=== PATIENT | female | born 1955 | race Caucasian/White ===

== ENCOUNTER 2018-06-17 17:46 | Inpatient (IN) | payer MEDICAID, SELFPAY | END 2018-06-28 13:10 | DRG 710 | PROVIDERS: Admitting Provider Family Medicine; Emergency Provider Emergency Medicine; PCP Internal Medicine; Visit Provider Internal Medicine | DX: A41.01 Sepsis due to Methicillin susceptible Staphylococcus aureus (principal); R65.21 Severe sepsis with septic shock; J96.01 Acute respiratory failure with hypoxia; I11.0 Hypertensive heart disease with heart failure; L03.115 Cellulitis of right lower limb; M86.171 Other acute osteomyelitis, right ankle and foot; Z68.44 Body mass index [BMI] 60.0-69.9, adult; I50.42 Chronic combined systolic (congestive) and diastolic (congestive) heart failure; E11.69 Type 2 diabetes mellitus with other specified complication; E11.621 Type 2 diabetes mellitus with foot ulcer; E11.628 Type 2 diabetes mellitus with other skin complications; L03.116 Cellulitis of left lower limb; L97.302 Non-pressure chronic ulcer of unspecified ankle with fat layer exposed; I83.003 Varicose veins of unspecified lower extremity with ulcer of ankle; L97.519 Non-pressure chronic ulcer of other part of right foot with unspecified severity; E66.01 Morbid (severe) obesity due to excess calories; I48.91 Unspecified atrial fibrillation; S92.0 Fracture of calcaneus; X50.0XXA Overexertion from strenuous movement or load, initial encounter; G47.30 Sleep apnea, unspecified; D64.9 Anemia, unspecified; M19.90 Unspecified osteoarthritis, unspecified site; F32.9 Major depressive disorder, single episode, unspecified; Z87.891 Personal history of nicotine dependence; B96.4 Proteus (mirabilis) (morganii) as the cause of diseases classified elsewhere | CPT/HCPCS: 36415; 36569; 36600; 51702; 71046; 73590; 73620; 73630; 80048; 80053; 80202; 81001; 82247; 82565; 82805; 83036; 83605; 83880; 84443; 84484; 85025; 85027; 85610; 85730; 86141; 86850; 86900; 86901; 87040; 87070; 87075; 87076; 87081; 87147; 87186; 87205; 93005; 93923; 94003; 94640; 94667; 96365; 96366; 96368; 97110; 97116; 97161; 97166; 97530; 97535; 99291; A9270; C1751; C8929; J0696; J0743; J1100; J1160; J1170; J1650; J1815; J1940; J2250; J2270; J2405; J2704; J2997; J3010; J3370; J7030; J7060; Q9957 ==

== ENCOUNTER 2019-07-21 13:16 | Outpatient (RCR) | payer BC, SELFPAY ==
[2019-07-21 14:03] VITALS: BMI 52.7
== END 2019-10-07 10:59 | disposition home health service (06) ==
LOC: ANHWOC 13:16
PROVIDERS: PCP Internal Medicine; Visit Provider Nurse Practitioner
DX: L97.522 Non-pressure chronic ulcer of other part of left foot with fat layer exposed (principal)
CPT/HCPCS: 99213; A9270; G0463

== ENCOUNTER 2019-11-26 14:29 | Inpatient (IN) | payer BC, SELFPAY ==
[2019-11-26] VITALS (24 sets, daily range): BP systolic 78–133; BP diastolic 40–90; PULSE 85–140; RESP 12–38; TEMP 36–36.8; O2SAT 93–100; BMI 65.0
--- NOTE | ~2019-11-26 | XR_ITS ---
XR chest 1V portable DATE: 12/06/2019 06:15 INDICATION: Acute respiratory failure, pulmonary edema TECHNIQUE: Portable AP chest on 12/06/2019 at 0551 hours COMPARISON: 12/05/2019 portable AP chest at 0537 hours FINDINGS: ET tube is approximately 6 cm above reny; ideal range is 2-5 cm. A nasogastric tube is pr esent at least to the lower margin of the radiograph the distal esophagus but the distal portion is c ollimated off the exam. Left-sided line a central venous catheter; the tip is not well demonstrated, and may overlie the left brachiocephalic vein. Cardiomegaly. There is prominent pulmonary vascular congestion and redistribution. There are bilatera l relatively central and lower lung zone infiltrates, the distribution favoring pulmonary edema. Pneu monia and aspiration are not excluded. Diffuse osteopenia. Aortic calcification. IMPRESSION: Cardiomegaly, prominent congestive heart failure and probable pulmonary edema, without an y significant improvement since 12/05/2019 Reviewed, dictated and finalized at location A. IMPRESSION: Cardiomegaly, prominent congestive heart failure and probable pulmo nary edema, without any significant improvement since 12/05/2019
--- NOTE | ~2019-11-26 | XR_ITS ---
EXAMINATION: XR chest 1V portable DATE: 11/28/2019 06:05 INDICATION: Respiratory failure TECHNIQUE: frontal view of the chest was obtained. COMPARISON: Chest radiograph dated 11/26/2019 FINDINGS: Endotracheal tube tip 6.0 cm above the reny. Nasogastric tube extends below the left hemidiaphragm with distal tip collimated off the study. Left subclavian central venous port catheter with distal t ip at the left brachiocephalic vein. Patchy and bandlike airspace opacities in the bilateral mid and lower lung zone superimposed over a g radient of the lower lung predominant hazy airspace opacities bladder consistent with small bilateral pleural effusions. No pneumothorax. Cardiomegaly. Enlargement of the central pulmonary arteries whic h can be seen with pulmonary arterial hypertension. IMPRESSION: 1. Endotracheal tube tip 6.0 cm above the reny. Consider advancement by 3-4 cm. 2. Patchy and bandlike opacities in the bilateral mid and lower lung zones consistent with atelectasi s and possibly also pneumonia or pulmonary edema. 3. Small bilateral pleural effusions. 4. Cardiomegaly with enlargement of the central pulmonary arteries which can be seen with pulmonary a rterial hypertension. Reviewed, dictated and finalized at location A. IMPRESSION: 1. Endotracheal tube tip 6.0 cm above the reny. Consider advancement by 3-4 c m. 2. Patchy and bandlike opacities in the bilateral mid and lower lung zones cons istent with atelectasis and possibly also pneumonia or pulmonary edema. 3. Small bilateral pleural effusions. 4. Cardiomegaly with enlargement of the central pulmonary arteries which can be seen with pulmonary arterial hypertension.
--- NOTE | ~2019-11-26 | XR_ITS ---
EXAMINATION: XR foot LT min 3V DATE: 11/27/2019 06:16 INDICATION: Left foot wound TECHNIQUE: Dorsoplantar, two oblique and lateral views of the left foot were obtained. COMPARISON: None. FINDINGS: Bone alignment is normal. No fracture. Mild polyarticular osteoarthritis at multiple joints in the mi d and forefoot. Small juxta articular cortical erosion with corticated margins at the medial head of the first metatarsal with classic location and appearance for gout. No other evident erosions or oste olysis suspicious for osteomyelitis. Achilles and plantar calcaneal spurs. There is bandaging materia l overlying ulceration and/or region of soft tissue debridement at the medial aspect of the left hind foot. Dystrophic calcification along the medial aspect of the distal lower leg. There is benign-appea ring periosteal reaction along the medial side of the distal tibial metadiaphysis. Both the periostea l reaction and dystrophic ossification can be seen in the setting of chronic venous stasis. IMPRESSION: 1. Deep ulceration and/or soft tissue debridement at the medial aspect of the left hindfoot without e vident underlying osteomyelitis or other acute osseous abnormality. 2. Chronic appearing erosion at the medial head of the first metatarsal with classic location and emmie earance for gout. 3. Mild polyarticular osteoarthritis in the mid and forefoot. 4. Benign-appearing periosteal reaction along the medial side of the distal tibia with overlying dyst rophic soft tissue calcifications which can be seen in the setting of chronic venous stasis. Reviewed, dictated and finalized at location A. IMPRESSION: 1. Deep ulceration and/or soft tissue debridement at the medial aspect of the l eft hindfoot without evident underlying osteomyelitis or other acute osseous ab normality. 2. Chronic appearing erosion at the medial head of the first metatarsal with cl assic location and appearance for gout. 3. Mild polyarticular osteoarthritis in the mid and forefoot. 4. Benign-appearing periosteal reaction along the medial side of the distal tib ia with overlying dystrophic soft tissue calcifications which can be seen in th e setting of chronic venous stasis.
--- NOTE | ~2019-11-26 | XR_ITS ---
XR chest 1V portable DATE: 11/26/2019 16:20 INDICATION: Dyspnea TECHNIQUE: Portable AP chest on 11/26/2019 at 1612 hours COMPARISON: 11/28/2018 AP and lateral chest FINDINGS: There is cardiomegaly. There is pulmonary vascular congestion and redistribution. There are bilateral central and lower lung zone infiltrates. The distribution favors pulmonary edema but pneum onia and aspiration are additional considerations. The infiltrates are increased compared to 9. Right pleural effusion is suggested. No pneumothorax. Severe osteoarthritic change is evident at the right glenohumeral joint. There is diffuse osteopenia. IMPRESSION: Cardiomegaly, congestive heart failure, bilateral infiltrates suggestive of pulmonary crow ma., Probable pleural effusion on the right Cannot exclude pneumonia or aspiration. Reviewed, dictated and finalized at location A. IMPRESSION: Cardiomegaly, congestive heart failure, bilateral infiltrates sugge stive of pulmonary edema., Probable pleural effusion on the right Cannot exclude pneumonia or aspiration.
--- NOTE | ~2019-11-26 | XR_ITS ---
EXAMINATION: XR chest 1V portable INDICATION: Respiratory failure TECHNIQUE: Portable AP chest at 0523 hours COMPARISON: 11/28/2019 FINDINGS: The endotracheal tube ends approximately 5.1 cm above the reny. The nasogastric tube is f ollowed as far as the stomach. Its tip is beyond the inferior margin of the radiograph. A left subcla vian catheter ends in the brachiocephalic vein. There is stable cardiomegaly. Small pleural effusions are unchanged. Bibasilar airspace opacities are stable. There are decreased airspace opacities in th e midlung zones. No pneumothorax is identified. IMPRESSION: 1. Stable cardiomegaly. 2. Small pleural effusions, unchanged. 3. Airspace opacities of the mid and lower lung zones, with improvement in the mid lung zones, consis tent with atelectasis versus pneumonia. Reviewed, dictated and finalized at location A. IMPRESSION: 1. Stable cardiomegaly. 2. Small pleural effusions, unchanged. 3. Airspace opacities of the mid and lower lung zones, with improvement in the mid lung zones, consistent with atelectasis versus pneumonia.
--- NOTE | ~2019-11-26 | XR_ITS ---
EXAMINATION: XR chest 1V portable DATE: 12/05/2019 06:14 INDICATION: Acute respiratory failure. Pulmonary edema. TECHNIQUE: A single frontal view of the chest was obtained. COMPARISON: Chest single view 12/04/2019 FINDINGS: There are airspace opacities in the perihilar regions and at the lung bases. There are smal l pleural effusions. No pneumothorax. Cardiomegaly is noted. The endotracheal tube tip is 6.7 cm abov e the reny. The nasogastric tube tip is beyond the inferior margin of the radiograph, but at least to the stomach. A left subclavian central venous catheter is seen with tip in the left brachiocephali c vein. IMPRESSION: 1. Stable airspace opacities in the perihilar regions and at the lung bases, consistent with atelecta sis versus pulmonary edema versus pneumonia. 2. Stable small pleural effusions. 3. Cardiomegaly. Reviewed, dictated and finalized at location A. IMPRESSION: 1. Stable airspace opacities in the perihilar regions and at the lung bases, co nsistent with atelectasis versus pulmonary edema versus pneumonia. 2. Stable small pleural effusions. 3. Cardiomegaly.
--- NOTE | ~2019-11-26 | US_ITS ---
EXAMINATION:US venous doppler LE BI INDICATION:Elevated d-dimer. TECHNIQUE: Multiple grayscale, color flow and Doppler images of the bilateral lower extremity deep ve nous systems were obtained and reviewed. COMPARISON:11/11/2018 FINDINGS: The common femoral, superficial femoral and popliteal veins demonstrate normal respiratory variation, augmentation and compressibility. Color flow is also seen within the posterior tibial, pe roneal, greater saphenous and profunda veins. There is a right [id number] amputation and the righ t posterior tibial and peroneal veins are not evaluated. IMPRESSION: 1: No lower extremity deep venous thrombosis. Reviewed, dictated and finalized at location B.
--- NOTE | ~2019-11-26 | XR_ITS ---
EXAMINATION: XR chest 1V portable DATE: 12/04/2019 06:07 INDICATION: Acute respiratory failure. Pulmonary edema. TECHNIQUE: A single frontal view of the chest was obtained on 2 radiographs. COMPARISON: Chest single view 12/03/2019 FINDINGS: There are airspace opacities in the perihilar regions and at the lung bases. There are smal l pleural effusions. No pneumothorax. Cardiomegaly is noted. The endotracheal tube tip is 4.7 cm abov e the reny. A left subclavian central venous catheter is seen with tip in the left brachiocephalic vein. The nasogastric tube tip is beyond the inferior margin of the radiograph, but at least to the s tomach. IMPRESSION: 1. Stable airspace opacities in the perihilar regions and at the lung bases, consistent with atelecta sis versus pulmonary edema versus pneumonia. 2. Stable small pleural effusions. 3. Cardiomegaly. Reviewed, dictated and finalized at location A. IMPRESSION: 1. Stable airspace opacities in the perihilar regions and at the lung bases, co nsistent with atelectasis versus pulmonary edema versus pneumonia. 2. Stable small pleural effusions. 3. Cardiomegaly.
--- NOTE | ~2019-11-26 | XR_ITS ---
EXAMINATION: XR chest 1V portable DATE: 12/02/2019 06:20 INDICATION: Respiratory failure. TECHNIQUE: A single frontal view of the chest was obtained. COMPARISON: Chest single view 12/01/2019 FINDINGS: Sensitivity is decreased by obesity. There are airspace opacities in the perihilar regions and at the lung bases. There is a small right pleural effusion. Left lateral costophrenic angle is ex cluded. No pneumothorax. Cardiomegaly is noted. The endotracheal tube tip is 5.0 cm above the erny. The nasogastric tube tip is beyond the inferior margin of the radiograph, but at least to the stomac h. A left subclavian central venous catheter is seen with tip in the left brachiocephalic vein. IMPRESSION: 1. Airspace opacities in the perihilar regions and at the lung bases with improvement on the left, co nsistent with atelectasis versus pneumonia. 2. Stable small right pleural effusion. 3. Cardiomegaly. Reviewed, dictated and finalized at location A. IMPRESSION: 1. Airspace opacities in the perihilar regions and at the lung bases with impro vement on the left, consistent with atelectasis versus pneumonia. 2. Stable small right pleural effusion. 3. Cardiomegaly.
--- NOTE | ~2019-11-26 | XR_ITS ---
EXAMINATION: XR abdomen NG/feed tube insert DATE: 12/03/2019 03:56 INDICATION: Nasogastric tube placement. TECHNIQUE: A semiupright view of the abdomen was obtained. COMPARISON: Abdomen single view 11/27/2019 FINDINGS: The lower abdomen and right lateral aspect of the abdomen are excluded. There are no visibl e dilated loops of bowel. The nasogastric tube tip is in the stomach. IMPRESSION: 1. Nasogastric tube tip in the stomach. Reviewed, dictated and finalized at location A.
--- NOTE | ~2019-11-26 | XR_ITS ---
EXAMINATION: XR chest 1V portable DATE: 12/03/2019 08:50 INDICATION: Congestive heart failure. TECHNIQUE: A single frontal view of the chest was obtained on 2 radiographs. COMPARISON: Chest single view 12/02/2019 FINDINGS: Sensitivity is decreased by obesity. There are airspace opacities in the perihilar regions and at the lung bases. There is a small right pleural effusion. No pneumothorax. Cardiomegaly is note d. The endotracheal tube tip 5.6 cm above the reny. The nasogastric tube is not well-visualized. A left subclavian central venous catheter is seen with tip in the left brachiocephalic vein. IMPRESSION: 1. Stable airspace opacities in the perihilar regions and at the lung bases, consistent with atelecta sis versus pneumonia. 2. Stable small right pleural effusion. 3. Cardiomegaly. Reviewed, dictated and finalized at location A. IMPRESSION: 1. Stable airspace opacities in the perihilar regions and at the lung bases, co nsistent with atelectasis versus pneumonia. 2. Stable small right pleural effusion. 3. Cardiomegaly.
--- NOTE | ~2019-11-26 | XR_ITS ---
XR chest 1V portable DATE: 12/07/2019 06:22 INDICATION: Respiratory failure. Pulmonary edema. TECHNIQUE: Portable AP chest on 12/07/2019 at 0508 hours COMPARISON: 12/06/2019 portable AP chest at 0551 hours FINDINGS: The endotracheal tube tip is 8 cm above reny; ideal range is 2-5 cm. There is a left subclavian central venous catheter, the tip overlying the left brachiocephalic vein. No pneumothorax. A nasogastric tube is noted, extending as far as the lower margin of the radiograph in the lower esop hagus. Cardiomegaly, pulmonary vascular congestion and redistribution and bilateral predominately central an d lower lung zone infiltrates suggestive of pulmonary edema are again noted, as well as prominence of minor fissure suggesting subpleural edema. There is mild improvement of the pulmonary edema since The lung bases are excluded. IMPRESSION: ET tube 8 cm above reny; ideal range is 2-5 cm Congestive heart failure, pulmonary edema, mildly improved since 12/06/2019 Reviewed, dictated and finalized at location A.
--- NOTE | ~2019-11-26 | US_ITS ---
EXAMINATION: US abdomen limited DATE: 11/30/2019 11:12 INDICATION: Right upper quadrant pain TECHNIQUE: Multiple grayscale and Doppler ultrasound images of the abdomen were obtained. COMPARISON: None available FINDINGS: Bowel gas obscures visualization of the pancreas. The visualized portions of the pancreas a re unremarkable. The liver is normal with normal echogenicity and echotexture. No surface nodularity. Normal hepatopetal flow in the main portal vein. The gallbladder and common bile duct are not visual ized. IMPRESSION: 1. No sonographic correlate for the patient's symptoms. Gallbladder and common bile duct not visualiz ed. Reviewed, dictated and finalized at location A. IMPRESSION: 1. No sonographic correlate for the patient's symptoms. Gallbladder and common bile duct not visualized.
--- NOTE | ~2019-11-26 | XR_ITS ---
EXAMINATION: XR chest 1V portable INDICATION: Respiratory failure TECHNIQUE: Portable AP chest at 0543 hours COMPARISON: 11/29/2019 FINDINGS: The endotracheal tube ends approximately 6.6 cm above the reny. The nasogastric tube is f ollowed as far as the stomach. Its tip is beyond the inferior margin of the radiograph. A left subcla vian catheter is in the brachiocephalic vein. There is stable cardiomegaly. There are stable airspace opacities of the mid and lower lung zones. No pneumothorax is identified. Small pleural effusions ar e stable. IMPRESSION: 1. Stable airspace opacities of the mid and lower lung zones, consistent with atelectasis versus pneu monia. 2. Stable cardiomegaly. 3. Small pleural effusions, stable. Reviewed, dictated and finalized at location A. IMPRESSION: 1. Stable airspace opacities of the mid and lower lung zones, consistent with a telectasis versus pneumonia. 2. Stable cardiomegaly. 3. Small pleural effusions, stable.
--- NOTE | ~2019-11-26 | XR_ITS ---
EXAMINATION: XR abdomen NG/feed tube insert DATE: 11/26/2019 23:52 INDICATION: Orogastric tube placement. TECHNIQUE: A semiupright view of the abdomen was obtained. COMPARISON: None. FINDINGS: The lower abdomen is excluded. There are no visible dilated loops of bowel. The nasogastric tube tip is in the stomach. IMPRESSION: 1. Nasogastric tube tip in the stomach. Reviewed, dictated and finalized at location A.
--- NOTE | ~2019-11-26 | XR_ITS ---
EXAMINATION: XR chest port-a-cath/central DATE: 11/26/2019 23:52 INDICATION: Intubation. TECHNIQUE: A single frontal view of the chest was obtained. COMPARISON: Chest single view at 4:07 PM FINDINGS: Sensitivity is decreased by obesity. There is a small right pleural effusion. There are air space opacities in the perihilar regions and at the lung bases. No pneumothorax. Cardiomegaly is note d. The endotracheal tube tip is 6.1 cm above the reny. The nasogastric tube tip is beyond the infer ior margin of the radiograph, but at least to the stomach. A left subclavian central venous catheter is seen with tip in the left brachiocephalic vein. IMPRESSION: 1. Airspace opacities in the perihilar regions and at the lung bases, consistent with pulmonary edema versus pneumonia. 2. Small right pleural effusion. 3. Cardiomegaly. Reviewed, dictated and finalized at location A. IMPRESSION: 1. Airspace opacities in the perihilar regions and at the lung bases, consisten t with pulmonary edema versus pneumonia. 2. Small right pleural effusion. 3. Cardiomegaly.
--- NOTE | ~2019-11-26 | XR_ITS ---
EXAMINATION: XR chest 1V portable DATE: 12/01/2019 06:41 INDICATION: Respiratory failure. TECHNIQUE: A single frontal view of the chest was obtained. COMPARISON: Chest single view 11/30/2019 FINDINGS: There are airspace opacities in the mid and lower lung zones with a lower lung predominance . There are small pleural effusions. No pneumothorax. Cardiomegaly is noted. The endotracheal tube ti p is 5.4 cm above the reny. A left subclavian central venous catheter is seen with tip in the super ior vena cava. The nasogastric tube is not well-visualized. IMPRESSION: 1. Stable airspace opacities in the mid and lower lung zones, consistent with atelectasis versus pneu monia. 2. Stable small pleural effusions 3. Cardiomegaly. Reviewed, dictated and finalized at location A. IMPRESSION: 1. Stable airspace opacities in the mid and lower lung zones, consistent with a telectasis versus pneumonia. 2. Stable small pleural effusions 3. Cardiomegaly.
--- NOTE | ~2019-11-26 | XR_ITS ---
EXAMINATION: XR chest 1V portable EXAM DATE: 12/08/2019 06:04 INDICATION: Respiratory failure. TECHNIQUE: Portable AP frontal chest x-ray was obtained. Comparison is made to prior examination from 12/07/2019, 12/05. FINDINGS: The reny is suboptimally visualized, but probably about 6 or 7 cm above it. This could be safely advanced 2 cm. There is a nasogastric tube seen with tip collimated off the study, but below the left hemidiaphragm. There is a left-sided subclavian venous line overlying expected position. Ill-defined bilateral edema and/or infection suspected. Probable small to moderate bilateral pleural effusions layering posteriorly. There is no pneumothorax suspected. The cardiomediastinal silhoue tte is prominent but magnified on this AP technique. The bones and soft tissues are unremarkable. There is no significant interval change compared to prior exam. IMPRESSION: 1. Endotracheal tube could be safely advanced 1-2 cm. 2. Findings consistent with CHF exacerbation. Infection not excludable. Reviewed, dictated and finalized at location A.
--- NOTE | 2019-11-26 14:38 | ECG_ITS ---
Measurements Intervals [place] Rate: 116 P: OR: 0 QRS: 92 QRSD: 106 T: 264 QT: 316 QTc: 441 Interpretive Statements ATRIAL FIBRILLATION WITH RAPID VENTRICULAR RESPONSE RIGHT AXIS DEVIATION BORDERLINE ST-T WAVE ABNORMALITY- DIFFUSE LEADS ABNORMAL ECG Electronically Signed On 11-27-2019 11:52:05 CDT by Jorje Barber D.O.
--- NOTE | 2019-11-26 14:44 | ED.SOB ---
HPI - SOB/Dyspnea General Chief Complaint: Shortness of Breath/Dyspnea Stated Complaint: SOB Source: RN notes reviewed History of Present Illness HPI Narrative: Patient presents emergency department from home via EMS for shortness of breath. Patient states she began feeling short of breath approximately 3 days ago progressively worsening. Patient has a history of CHF followed by Dr. valle and has been taking her medications prescribed. When EMS arrived they noted the patient's oxygen saturations to be in the 70s initially placed nasal cannula and then nonrebreather to get up into the 90s. Patient denies having any fevers or chills chest pain abdominal pain or any other symptoms. Related Data Allergies Allergy/AdvReac Type Severity Reaction Status Date / Time azithromycin Allergy Unknown Rash Verified 11/26/19 14:42 Penicillins Allergy Unknown Rash Verified 11/26/19 14:42 Review of Systems Review of Systems: Narrative: Gen.: Denies fevers or chills ENT: Denies congestion Respiratory: See HPI CV: Denies chest pain or palpitations GI: Denies abdominal pain nausea, emesis or diarrhea Musculoskeletal: Denies back pain or muscle pain Neuro: Denies numbness, tingling, weakness or focal weakness Skin: Denies rash Except as documented, all other systems reviewed and negative PMFSH Past Medical History Medical History (Updated 11/26/19 @ 17:56 by Anand Suero DO) Atrial fibrillation Congestive heart failure, unspecified Ulcer of left medial lower extremity with fat layer exposed Surgical History Surgical History (Updated 06/12/19 @ 13:57 by Enedina Rodrigues, MARIA TERESA-C) 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 ABDOMINAL: Soft, nontender, nondistended, no rebound or guarding MUSCULOSKELETAl: Moves all extremities. No clubbing, cyanosis 3+ edema in the left lower extremity, right lower leg amputation NEURO: Awake and alert. Following commands, speech normal, no focal deficits SKIN:: Warm, dry. No rashes lesions or abrasions PSYCHIATRIC: Normal affect/mood, Course Course Emergency Course: Reviewed old records Discussed with ADIEL Mon for Dr. Welsh presentation work-up. Agrees with admission at this time Patient remains on BiPAP. Repeat gas shows minimal change again discussed with ADIEL Mon and will switch to the ICU at this time Called and discussed with ICU Dr. Lugo. At this time he requests Levaquin be started with covert swab obtained agrees with admission of the ICU Discussed with patient and family results of workup and diagnosis. Discussed need for admission. Patient and family understand and agree to current treatment plan. Patient remains awake and alert on BiPAP Vital Signs Vital signs: Vital Signs Temperature 98.2 F 11/26/19 14:28 Pulse Rate 127 H 11/26/19 14:28 Respiratory Rate 16 11/26/19 14:28 Blood Pressure 133/84 11/26/19 14:28 Pulse Oximetry 95 11/26/19 14:28 Temperature 98.2 F 11/26/19 14:28 Pulse Rate 109 H 11/26/19 16:53 Respiratory Rate 24 H 11/26/19 16:53 Blood Pressure 113/85 11/26/19 16:53 Pulse Oximetry 96 11/26/19 16:53 MDM - SOB/Dyspnea Lab Data Result diagrams: 11/26/19 14:49 11/26/19 14:49 Labs: Lab Results 11/26/19 11/26/19 11/26/19 Range/Units 14:49 14:49 14:50 WBC 11.6 H (4.5-10.0) K/mm3 RBC 5.50 H (4.2-5.4) M/mm3
[2019-11-26 15:04] LABS: Basophils Percent Auto 0.3 % (0.2-1.2); Eosinophils Percent Auto 0.1 % (0-4.4); Hematocrit 50.6 % (37.0-47.0); Hemoglobin 15.3 g/dL (12.0-15.0); Immature Granulocyte Absolute 0.04 K/mm3 (0.00-0.031); Immature Granulocyte Percent A 0.3 % (0-0.5); Lymphocytes Absolute Auto 1.36 K/mm3 (0.9-3.2); Lymphocytes Percent Auto 11.7 % (18.3-44.2); Mean Corpuscular HGB Conc 30.2 g/dl (32-36); Mean Corpuscular Hemoglobin 27.8 pg (26-34); Monocytes Absolute Auto 1.2 K/mm3 (0.1-0.6); Monocytes Percent Auto 10.2 % (2.6-8.5); Neutrophils Percent Auto 77.4 % (45.5-73.1); Nucleated Red Blood Cells Perc 0.2 % (0.0-0.2); Platelet Count Result 312 k/mm3 (150-375); Red Cell Distribution Width 15.7 % (11.5-14.5); White Blood Count 11.6 K/mm3 (4.5-10.0)
[2019-11-26 15:06] LABS: INR 1.8; Prothrombin Time 20.5 Seconds (11.1-14.7)
[2019-11-26 15:07] LABS: Partial Thromboplastin Time 33.3 SECONDS (22.3-36.8)
[2019-11-26 15:11] LABS: Blood Urea Nitrogen 61 mg/dL (7-17); Calcium 8.5 mg/dL (8.4-10.2); Carbon Dioxide 29 mmol/L (22-30); Chloride 95 mmol/L (98-107); Estimated CRCL calculation 63 ml/min; Estimated Glomerular Filt Rate 33; Glucose 118 mg/dL (65-105); Potassium 5.3 mmol/L (3.4-5.0); Sodium 136 mmol/L (137-145)
[2019-11-26 15:23] LABS: NT Pro B Type Natriuretic Pept 11200 PG/ML (5-100); Troponin I 0.113 ng/mL (0.000-0.034)
[2019-11-26 15:28] LABS: Base Excess ABG -1.5 mEq/l (+/-2.0); Fractional Inspired Oxygen 100 %; HCO3 ABG 29.2 mEq/l (22.0-26.0); Oxygen Content ABG 21.6 %vol (16.0-22.0); Oxygen Saturation ABG 98.8 % (95.0-100.0); Oxyhemoglobin 96.4 % THb (90.0-100.0); PO2 ABG 175.7 mmHg (80.0-100.0); PO2 FiO2 Ratio Arterial Blood 1.76 %; Total Hemoglobin 15.7 g/dL (12.0-18.0)
[2019-11-26 15:32] LABS: Device NON-INVASIVE VENT; Modified Allen's Test Pass; PCO2 ABG 78.3 mmHg (35.0-45.0); Site Drawn RIGHT RADIAL
[2019-11-26 15:33] LABS: Non-Invasive Expiratory Pressure 8 CMH2O; Non-Invasive Inspiratory Pressure 14 CMH2O; Non-Invasive Vent Rate 16 /MIN
[2019-11-26] MEDS: ASPIRIN 81 MG CHEWABLE TABLET 324 MG (16:05)
[2019-11-26 16:35] LABS: Alveolar/Arterial O2 Gradient 525.1 mmHg; Base Excess ABG -2.4 mEq/l (+/-2.0); Fractional Inspired Oxygen 100 %; HCO3 ABG 28.2 mEq/l (22.0-26.0); Oxygen Content ABG 20.9 %vol (16.0-22.0); Oxygen Saturation ABG 96.8 % (95.0-100.0); Oxyhemoglobin 94.9 % THb (90.0-100.0); PO2 ABG 111.5 mmHg (80.0-100.0); PO2 FiO2 Ratio Arterial Blood 1.12 %; Total Hemoglobin 15.6 g/dL (12.0-18.0)
[2019-11-26 16:38] LABS: Device NON-INVASIVE VENT; Modified Allen's Test Pass; Non-Invasive Vent Rate 20 /MIN; PCO2 ABG 76.4 mmHg (35.0-45.0); Site Drawn RIGHT RADIAL; pH ABG 7.185 (7.350-7.450)
[2019-11-26 16:39] LABS: Non-Invasive Expiratory Pressure 6 CMH2O; Non-Invasive Inspiratory Pressure 16 CMH2O
[2019-11-26 17:15] LABS: Lactic Acid Reflex 1.9 mmol/L (0.7-2.1)
[2019-11-26 20:15] LABS: Troponin I 0.046 ng/mL (0.000-0.034)
--- NOTE | 2019-11-26 21:30 | PM.IMHP ---
H&P: HPI History of Present Illness Chief complaint: Shortness of breath. Narrative: Eden Gallagher is a 63-year-old female with multiple medical problems including obstructive sleep apnea, combined systolic and diastolic congestive heart failure, pulmonary hypertension, paroxysmal atrial fibrillation, hypertension, morbid obesity, and peripheral vascular disease who presented to the emergency department earlier today via EMS from home for evaluation of shortness of breath. She has chronic shortness of breath which has been worse over the past 3 days with cough occasionally productive of clear phlegm. On EMS arrival her SpO2 was in the 70s which ultimately improved into the 90s within non-rebreather. ABG on arrival to the emergency department demonstrated acute respiratory acidosis with hypercarbia and she was started on BiPAP. Despite several setting changes, her pCO2 continued to climb and the decision was made to go ahead and intubate. While preparing for intubation, she did indicate to me that her CPAP was not working well for the last 3 days and she was supposed to get her friend's machine today for use until she could replace hers. She also reports that her atrial fibrillation has been a bit symptomatic over the past couple of days, with intermittent racing heart. She has not had fever, chills, or sweats. No headache, sinus congestion, rhinorrhea, otalgia, or odynophagia. She denies dysphagia and concerns for aspiration. She has not had chest pain or pleuritic pain. No recent travel or exposure to those positive for COVID-19 to her knowledge. She does not leave the house often, but she does have a friend that comes over to visit, and that friend does teach at a local community college. Of note, she has a wound on her left medial foot and has an appointment with the wound nurse tomorrow for evaluation. The wound is malodorous and has been so for several days. Review of Systems Review of Systems: Narrative: Twelve systems were reviewed with pertinent positives and negatives as per HPI. Except as documented, all other systems were reviewed and are negative. [facility] Past Medical History Medical History (Updated 11/27/19 @ 01:23 by Yaa Resendiz PA-C) Anxiety Asthma Chronic anemia Chronic venous stasis Combined systolic and diastolic congestive heart failure Echocardiogram in June 2018 demonstrated mild to moderate global left ventricular systolic dysfunction with an ingestion fraction estimated 47%, pseudonormal diastolic dysfunction grade 2, mild concentric LVH, mild enlargement of the left ventricle cavity, mild enlargement of the right ventricle, mild biatrial enlargement, and moderate pulmonary hypertension. GI bleed Secondary to duodenal ulcer. Hypertension Morbid obesity Obstructive sleep apnea on CPAP Osteomyelitis of right leg (~06/2018) Paroxysmal atrial fibrillation Peptic ulcer disease Psoriasis Pulmonary hypertension Echocardiogram in June 2018 showed moderate pulmonary hypertension with estimated peak of 65 mmHg. Type 2 diabetes mellitus Surgical History Surgical History (Updated 11/27/19 @ 00:24 by Yaa Resendiz PA-C) History of right below knee amputation Secondary to underlying infection. History of total abdominal hysterectomy and bilateral salpingo-oophorectomy (~2003) Secondary to ruptured uterus from underlying abscess. Family History Family History (Updated 11/26/19 @ 21:07 by Yaa Resendiz PA-C) Sibling Patient's sister is in good health Father Family history of diabetes mellitus in first degree relative Mother Family history of malignant melanoma, Onset Age: 77 Patient's mother is Atrial fibrillation Other Diabetes mellitus Social History Social History (Updated 11/27/19 @ 00:42 by Yaa Resendiz PA-C) Social History: The patient has never been and has no children. She used to own a nursery and teaches horticulture at [employer]
[2019-11-26 21:31] LABS: Alveolar/Arterial O2 Gradient 254.2 mmHg; Base Excess ABG 0.2 mEq/l (+/-2.0); Carboxyhemoglobin 0.9 % THb (0-2.0); Fractional Inspired Oxygen 60 %; HCO3 ABG 31.4 mEq/l (22.0-26.0); Methemoglobin ABG 0.5 %THb (0-1.5); Oxygen Content ABG 19.2 %vol (16.0-22.0); Oxygen Saturation ABG 92.1 % (95.0-100.0); Oxyhemoglobin 91.4 % THb (90.0-100.0); PO2 ABG 79.9 mmHg (80.0-100.0); PO2 FiO2 Ratio Arterial Blood 1.33 %; Reduced Hemoglobin 7.2 %THb (0-5.0); Total Hemoglobin 14.9 g/dL (12.0-18.0)
[2019-11-26 21:32] LABS: pH ABG 7.184 (7.350-7.450)
[2019-11-26 21:33] LABS: Device NON-INVASIVE VENT; Modified Allen's Test Pass; Non-Invasive Expiratory Pressure 8 CMH2O; Non-Invasive Inspiratory Pressure 22 CMH2O; Non-Invasive Vent Rate 24 /MIN; PCO2 ABG 85.2 mmHg (35.0-45.0); Site Drawn RIGHT RADIAL
[2019-11-26] MEDS: SODIUM CHLORIDE 0.9% IV 500 ML IV CONT (22:00)
[2019-11-26] MEDS: RAPID SEQUENCE INTUBATION KIT 1 EACH (22:00)
--- NOTE | 2019-11-26 22:40 | P.PCNBED_ITS ---
Procedures Intubation Intubation Date: 11/26/19 Intubation Time: 22:40 Consent: Patient gave verbal consent. A pre-procedural Time-Out was completed immediately before starting the procedure and confirmed: Patient Identification, Site, Procedure, Patient Position and the Availability of Requisite Equipment: Yes Sedative: etomidate Mg given: 10 Paralytic: succinylcholine Mg given: 100 Laryngoscope: fiber optic video scope ET tube size: cuffed Tube secured depth (cm): 23 Tube secured location: lips Tube placement confirmation: visualized tube passing through cords, equal breath sounds bilaterally, no breath sounds over epigastrium and confirmation by capnometry Patient tolerated procedure: well Intubation complications: none Additional comments: Dr. Tomas Wood, attending ED physician, was notified prior to the procedure and was available to help if needed. Vent settings and sedation orders given per Dr. Lugo, see supervisor.
--- NOTE | 2019-11-26 23:56 | WPDPROCEDUR ---
Procedures Central Line Placement Right SC: Central Line Date: 11/26/19 Central Line Time: 23:15 Discussed w/ the patient/family/POA,the placement of a central venous catheter, including its clinical necessity/indication & associated potential risks, benifits and alternatives.: Yes The patient/family/POA understand(s) and acknowledge(s) the need to proceed with central venous catheter insertion as an important element of the patient's clinical management.: Yes Time Out Performed: Yes Patient Position: supine Patient placed on monitor/pulse ox: Yes Provider Prep: mask, sterile gown, sterile gloves, Max. sterile barrier precautions, cap and hand hygiene Central line prep: Chlorhexidine scrub and sterile full body sheet applied Central line lumen inserted: triple Slovak: 7 Length (cm): 16 Depth of Insertion (cm): 15 Post procedure: sutured in place, good blood return, all ports aspirated, flushed, capped, tegaderm, hemostatic disc and aseptic technique maintained throughout procedure Post procedure x-ray: tip of catheter in good position and no pneumothorax seen Patient tolerated procedure: well Additional comments: Immediate return of venous blood on 1st attempt. Guidewire advanced easily. Dilator advanced easily. All ports had venous return and flushed easily.
[2019-11-27] VITALS (95 sets, daily range): BP systolic 70–156; BP diastolic 40–144; PULSE 72–120; RESP 16–28; TEMP 35.6–36.8; O2SAT 94–100; BMI 65.0
[2019-11-27] MEDS: NOREPINEPHRINE 8 MG/D5W 250 ML 8 MG/250 ML BAG 9.4 MG IV CONT (00:01)
--- NOTE | 2019-11-27 00:04 | P.PNCROSS_ITS ---
Event Note Event Note Event Note: 11/27/2019 21:55 and the 11/28/2019 at 2:00 a.m. The patient developed hypotension. She required Peripheral dopamine at 10 pressor therapy. Attempt was made at a femoral line by physician production administrative assistant without success. Subsequently a placed a right subclavian line. After central line placement was confirmed the patient was transitioned from dopamine to Levophed as she was having AFib with rapid ventricular response. Now hour Patient's blood pressures improved to the 90s to 100 systolic. The patient's blood pressures are difficult to of obtain due to a forearm blood pressure cuff. Accuracy is somewhat questionable as the patient was still speaking and Fully cognitive with recorded blood pressures of 50 systolic prior to intubation. The patient also was having persistent requirement of pressor therapy and after midnight a subsequently went and tried to place an arterial line for more accurate blood pressure monitoring. A left radial art line was attempted. I obtained arterial blood return and the guidewire advanced easily however the catheter would not advance over the guidewire. On and 2nd attempt arterial blood return was obtained but the guidewire would not advance. I subsequently transition to a left femoral art line procedure. Arterial blood return was obtained. Guidewire advanced easily. However when the catheter was placed over the guidewire and the guidewire was removed there was loss of arterial blood return. I was present at bedside when the patient was intubated by the physician Process Design Chemical Engineer.
[2019-11-27 00:38] LABS: Alveolar/Arterial O2 Gradient 580.4 mmHg; Base Excess ABG -4.7 mEq/l (+/-2.0); Carboxyhemoglobin 0.9 % THb (0-2.0); Fractional Inspired Oxygen 100 %; HCO3 ABG 23.6 mEq/l (22.0-26.0); Methemoglobin ABG 0.4 %THb (0-1.5); Oxygen Content ABG 18.9 %vol (16.0-22.0); Oxygen Saturation ABG 92.4 % (95.0-100.0); Oxyhemoglobin 90.5 % THb (90.0-100.0); PCO2 ABG 57.2 mmHg (35.0-45.0); PO2 ABG 75.4 mmHg (80.0-100.0); PO2 FiO2 Ratio Arterial Blood 0.75 %; Reduced Hemoglobin 8.2 %THb (0-5.0); Total Hemoglobin 14.8 g/dL (12.0-18.0)
[2019-11-27 00:39] LABS: Site Drawn RIGHT RADIAL; pH ABG 7.234 (7.350-7.450)
[2019-11-27 00:40] LABS: Arterial Blood Gas Ventilator rate 20 /MIN; Device VENTILATOR; Modified Allen's Test Pass
[2019-11-27 00:41] LABS: Arterial Blood Gas PEEP 8 cmH2O; Arterial Blood Gas Tidal Volume 450 ml; Arterial Blood Gas Vent Mode CMV
[2019-11-27 03:09] LABS: Basophils Percent Auto 0.2 % (0.2-1.2); Eosinophils Percent Auto 0.3 % (0-4.4); Hematocrit 46.8 % (37.0-47.0); Hemoglobin 14.1 g/dL (12.0-15.0); Immature Granulocyte Absolute 0.06 K/mm3 (0.00-0.031); Immature Granulocyte Percent A 0.5 % (0-0.5); Lymphocytes Absolute Auto 1.62 K/mm3 (0.9-3.2); Lymphocytes Percent Auto 12.3 % (18.3-44.2); Mean Corpuscular HGB Conc 30.1 g/dl (32-36); Mean Platelet Volume 9.8 fl (7.4-10.4); Monocytes Absolute Auto 1.7 K/mm3 (0.1-0.6); Monocytes Percent Auto 12.7 % (2.6-8.5); Neutrophils Absolute Auto 9.7 K/mm3 (1.3-6.7); Nucleated Red Blood Cells Perc 0.3 % (0.0-0.2); Platelet Count Result 292 k/mm3 (150-375); Red Blood Count 5.03 M/mm3 (4.2-5.4); Red Cell Distribution Width 15.4 % (11.5-14.5); White Blood Count 13.1 K/mm3 (4.5-10.0)
[2019-11-27 03:24] LABS: Alanine Aminotransferase 17 U/L (4-35); Albumin Level 3.6 g/dL (3.5-5.1); Alkaline Phosphatase 74 U/L (38-126); Aspartate Amino Transferase 26 U/L (14-36); Bilirubin,Total 1.5 mg/dL (0.2-1.3); Blood Urea Nitrogen 62 mg/dL (7-17); CRP 2.5 mg/dL (<1.0); Calcium 8.1 mg/dL (8.4-10.2); Carbon Dioxide 27 mmol/L (22-30); Chloride 98 mmol/L (98-107); Estimated CRCL calculation 62 ml/min; Estimated Glomerular Filt Rate 33; Glucose 116 mg/dL (65-105); Magnesium 2.3 mg/dL (1.6-2.3); Potassium 4.9 mmol/L (3.4-5.0); Sodium 135 mmol/L (137-145)
[2019-11-27 03:42] LABS: Troponin I 0.158 ng/mL (0.000-0.034)
[2019-11-27] MEDS: CENTRAL LINE FLUSH 10 ML IV PUSH ×4 (05:24→22:19)
[2019-11-27 05:36] LABS: Alveolar/Arterial O2 Gradient 366.5 mmHg; Base Excess ABG 0.4 mEq/l (+/-2.0); Fractional Inspired Oxygen 70 %; HCO3 ABG 27.7 mEq/l (22.0-26.0); Methemoglobin ABG 0.4 %THb (0-1.5); Oxygen Content ABG 18.8 %vol (16.0-22.0); Oxygen Saturation ABG 93.4 % (95.0-100.0); Oxyhemoglobin 91.5 % THb (90.0-100.0); PCO2 ABG 54.9 mmHg (35.0-45.0); PO2 ABG 73.6 mmHg (80.0-100.0); PO2 FiO2 Ratio Arterial Blood 1.05 %; Reduced Hemoglobin 7.1 %THb (0-5.0); Total Hemoglobin 14.6 g/dL (12.0-18.0)
[2019-11-27 05:37] LABS: Device VENTILATOR; Modified Allen's Test Pass; Site Drawn RIGHT RADIAL
[2019-11-27 05:38] LABS: Arterial Blood Gas PEEP 8 cmH2O; Arterial Blood Gas Tidal Volume 450 ml; Arterial Blood Gas Vent Mode CMV; Arterial Blood Gas Ventilator rate 20 /MIN
[2019-11-27] MEDS: APIXABAN 5 MG TABLET PO ×2 (09:24→16:58)
--- NOTE | 2019-11-27 09:39 | WPDCNINT ---
Assessment and Plan Assessment and plan (1) Shock: Code(s): R57.9 - Shock, unspecified Status: Acute Assessment and Plan: Septic versus cardiogenic versus combination Small IV fluid bolus due to suggestion of pulmonary edema on chest x-ray Levophed titration maintain map Blood cultures and urine culture sent Empiric vancomycin and Primaxin Lactic acid normal Check echocardiogram. (2) Acute respiratory failure with hypoxia and hypercapnia: Code(s): J96.01 - Acute respiratory failure with hypoxia; J96.02 - Acute respiratory failure with hypercapnia Status: Acute Assessment and Plan: Acute Respiratory failure secondary to CHF, COPD, obesity hypoventilation, possible pneumonia Continue full mechanical ventilation support to prevent hypoxemia/hypercarbia and end organ damage. ABG and PCXR reviewed and will repeat in am. Low tidal volume ventilation strategy to prevent volutrauma Bronchodilators COVID-19 suspected. SARS-CoV-2 PCR sent and results pending Patient is in Airborne, Droplet and Contact Isolation (3) Elevated troponin: Code(s): R79.89 - Other specified abnormal findings of blood chemistry Status: Acute Assessment and Plan: Small increase likely secondary to respiratory failure shock and acute kidney injury Aspirin and Eliquis (4) Acute on chronic combined systolic (congestive) and diastolic (congestive) heart failure: Code(s): I50.43 - Acute on chronic combined systolic (congestive) and diastolic (congestive) heart failure Status: Acute Assessment and Plan: Echo ordered Not a candidate for diuresis at this point (5) Paroxysmal atrial fibrillation: Code(s): I48.0 - Paroxysmal atrial fibrillation Status: Acute Assessment and Plan: Currently rate controlled without any intervention Aspirin and Eliquis (6) Renal failure: Code(s): N19 - Unspecified kidney failure Status: Acute Assessment and Plan: Multifactorial Small IV fluid bolus given Lasix held Monitor urine output electrolytes and creatinine King in place for accurate urine output Check CK level (7) Ulcer of left medial lower extremity with fat layer exposed: Code(s): L97.822 - Non-pressure chronic ulcer of other part of left lower leg with fat layer exposed Status: Acute Assessment and Plan: XR IMPRESSION: 1. Deep ulceration and/or soft tissue debridement at the medial aspect of the left hindfoot without evident underlying osteomyelitis or other acute osseous abnormality. 2. Chronic appearing erosion at the medial head of the first metatarsal with classic location and appearance for gout. 3. Mild polyarticular osteoarthritis in the mid and forefoot. 4. Benign-appearing periosteal reaction along the medial side of the distal tibia with overlying dystrophic soft tissue calcifications which can be seen in the setting of chronic venous stasis. Empiric vancomycin and Primaxin Wound care consulted (8) DVT prophylaxis: Code(s): Z29.9 - Encounter for prophylactic measures, unspecified Status: Acute Assessment and Plan: DVT prophylaxis -Eliquis Stress ulcer prophylaxis -start Pepcid Nutrition -start Tube Feeds and sliding scale insulin Code Status - Full Code Total Critical Care Time - 30 minutes Due to a high probability of clinically significant, life threatening deterioration, the patient required my highest level of preparedness to intervene emergently and I personally spent this critical care time directly and personally managing the patient. This critical care time included obtaining a history; examining the patient; pulse oximetry; ordering and review of studies; arranging urgent treatment with development of a management plan; evaluation of patient's response to treatment; frequent reassessment; and discussions with other providers. It was exclusive of se
[2019-11-27] MEDS: NOREPINEPHRINE 8 MG/D5W 250 ML 8 MG/250 ML BAG 15 MG IV CONT (10:31)
[2019-11-27 11:17] LABS: D Dimer 3.62 ug/mL (<0.48)
[2019-11-27 12:20] LABS: Lactate Dehydrogenase 372 U/L (313-618)
[2019-11-27] MEDS: TOLNAFTATE 1% POWDER 45 GM BTL 1 APPLIC TOPICAL ×2 (12:20→22:15)
[2019-11-27] MEDS: FAMOTIDINE 20 MG TABLET PO ×2 (12:20→22:37)
[2019-11-27 12:26] LABS: Creatine Kinase 65 U/L (30-135)
[2019-11-27 13:15] LABS: Glucose Point of Care 89 (65-105)
--- NOTE | 2019-11-27 13:48 | PC.NURSE ---
Change in Versed charted incorrectly. Versed was changed to 6 mg/12 mls at 1301, charting was changed to reflect the correct adjustment.
[2019-11-27 13:59] LABS: SARS-CoV-2 RNA PCR Negative
[2019-11-27] MEDS: SILVERGEL (ELTA) 45 ML 1 APPLIC TOPICAL (16:58)
[2019-11-27 17:49] LABS: Glucose Point of Care 90 (65-105)
--- NOTE | 2019-11-27 18:31 | WPDCN ---
Assessment and Plan Assessment and plan (1) Shock: Code(s): R57.9 - Shock, unspecified Status: Acute Assessment and Plan: Shock, Probable septic shock requiring intubation, Levophed. Her Levophed has been decreased today done to 4 mics. (2) Acute on chronic combined systolic (congestive) and diastolic (congestive) heart failure: Code(s): I50.43 - Acute on chronic combined systolic (congestive) and diastolic (congestive) heart failure Status: Acute Assessment and Plan: Chest x-ray suggests CHF as does BNP and total body edema. Acute on chronic systolic and diastolic heart failure. Not actively diuresing with Lasix because of hypotension but she did have a good urine output today. If her hypotension and her renal function improve, we can start an IV diuretic, hopefully. (3) Persistent atrial fibrillation: Code(s): I48.19 - Other persistent atrial fibrillation Status: Acute Assessment and Plan: History of persistent atrial fibrillation, transiently with a rapid ventricular response on admission, which has improved with only supportive therapy. We have continued her home anticoagulation with Eliquis, but have not resumed her home metoprolol because of her hypotension (4) Elevated troponin: Code(s): R79.89 - Other specified abnormal findings of blood chemistry Status: Acute Assessment and Plan: Very mildly elevated troponin, secondary to CHF, kidney disease, and physiologic stress. No indication of ACS. (5) Acute respiratory failure with hypoxia and hypercapnia: Code(s): J96.01 - Acute respiratory failure with hypoxia; J96.02 - Acute respiratory failure with hypercapnia Status: Acute Assessment and Plan: High FiO2 requirements, 60%. COVID negative. Management per regional sales executive. HPI Data of Consult Date/Time: 11/27/19 18:31 Requesting Physician: Katie Cedlilo MD Primary Care Provider: Edgar Montana DO Consult Narrative Narrative: Date of service: 11/27/19 Eden Gallagher is a 63 year old female the hospitalist for advice and opinion regarding her CHF in consultation. We saw the patient in 2014 for her persistent atrial fibrillation, hypertension, dyslipidemia and diabetes. She failed cardioversion and was maintained on rate control and anticoagulation. The latter was discontinued because she had a GI bleed secondary to duodenal ulcers. She was last seen by Dr. Gonzalez in April 2015 with a controlled heart rate response. Looking through [facility] it appears she was hospitalized for CHF in September 2015, and twice in November 2018 for respiratory failure and CHF. Cardiology was not involved in her care at that time. Last echo in June 2018 showed mild to moderate global left ventricular dysfunction, EF 47% with mild concentric LVH and diastolic dysfunction. Her RVSP was 65 mmHg. The patient came to our emergency room via EMS on 11/26/2019 with 3 days of shortness of breath have hypoxic hypercarbic respiratory failure, acute on chronic kidney disease, atrial fibrillation RVR, and elevated troponins which peaked at 0.16. She became progressively hypercarbic and required intubation. She has a malodorous wound on her left foot. Was thought to be septic and admitted to the intensive care unit. Subsequently she went into shock requiring Levophed, which was reduced today. She denied any chest pain admission. Her Eliquis was continued but her metoprolol was held because of her hypotension. She given 1 L of IV fluids on admission for her acute renal failure and low blood pressure. Suspected of having COVID-19 but her screen was negative. Her heart rate improved with no specific intervention. She also has a history of morbid obesity, sleep apnea, and peripheral vascular disease.
[2019-11-28] VITALS (37 sets, daily range): BP systolic 91–121; BP diastolic 65–87; PULSE 79–101; RESP 24; TEMP 36.6–36.9; O2SAT 92–100
--- NOTE | 2019-11-28 | ECHO_ITS ---
Patient Info Name: Eden Gallagher Age: 63 years : 1955 Gender: Female Ht: 69 in Wt: 436 lbs BSA: 3.23 m2 HR: 84 bpm BP: 96 / 68 mmHg Heart Rhythm: Atrial Fibrillation Technical Quality: Poor Exam Date: 11/28/2019 11:34 AM Exam Location: [facility] Patient Status: Inpatient Admit Date: 11/26/2019 Staff Ordering Physician: Sunil Lugo MD Case Mgr: Boris Cervantes RDCS Attending Provider: Katie Cedillo MD Exam Type: CA echo dop color flow w con Study Info Indications R06.02 - Shortness of breath Complete two-dimensional, color flow and Doppler transthoracic echocardiogram is performed with contrast to opacify the left ventricle and to improve the deliniation of the left ventricle endocardial borders. Contrast/Agitated Saline Contrast/Ag. Saline: Definity Amount: 2.00 ml Administered By: Juan Bahena RN Existing IV Access: Yes Reason for Poor Study: patient body habitus History/Risk Factors SOB, respiratory failure; pAfib, HTN. Summary 1. Despite definity contrast injection visualization is exceedingly difficult presumably because of obesity and mechanical ventilation. 2. Not possible to reliably reported ejection fraction based on this poor-quality exam. 3. Right atrial chamber dimension is moderately enlarged. 4. There is mild aortic valve sclerosis. 5. Aortic valve leaflet separation is well maintained the valve does not appear to be stenotic. Left Ventricle Left ventricular chamber dimension is not well visualized. Left ventricular systolic function is mildly reduced, estimated at Empty. Despite definity contrast injection visualization is exceedingly difficult presumably because of obesity and mechanical ventilation. Not possible to reliably reported ejection fraction based on this poor-quality exam. Right Ventricle Right ventricular chamber dimension is not well visualized. Left Atria Left atrial chamber dimension is normal. Right Atria Right atrial chamber dimension is moderately enlarged. Aortic Valve The aortic valve is trileaflet. There is mild aortic valve sclerosis. There is no aortic valve stenosis. Aortic valve leaflet separation is well maintained the valve does not appear to be stenotic. Pulmonic Valve The pulmonic valve is not well visualized. Mitral Valve The mitral valve has not well visualized. Tricuspid Valve The tricuspid valve leaflets are not well visualized. Pericardium/Pleural The pericardium appears not well visualized. There is no pericardial effusion. Aorta The aortic root size at the sinus of Valsalva is not well visualized. Left Ventricular Outflow Tract Name Value Normal LVOT 2D LVOT Diameter 2.39 cm LVOT Doppler LVOT Peak Gradient 3 mmHg LVOT Mean Gradient 2 mmHg LVOT VTI 15.15 cm LVOT VTI/AV VTI Ratio 0.64 LVOT Stroke Volume 68.06 ml LVOT CO 5.22 l/min
[2019-11-28 00:41] LABS: Glucose Point of Care 78 (65-105)
[2019-11-28 05:42] LABS: Hematocrit 41.1 % (37.0-47.0); Hemoglobin 12.9 g/dL (12.0-15.0); Mean Corpuscular HGB Conc 31.4 g/dl (32-36); Mean Corpuscular Hemoglobin 27.9 pg (26-34); Mean Platelet Volume 9.7 fl (7.4-10.4); Platelet Count Result 226 k/mm3 (150-375); Red Blood Count 4.62 M/mm3 (4.2-5.4); Red Cell Distribution Width 15.3 % (11.5-14.5); White Blood Count 7.8 K/mm3 (4.5-10.0)
[2019-11-28 06:01] LABS: Alanine Aminotransferase 14 U/L (4-35); Albumin Level 3.1 g/dL (3.5-5.1); Alkaline Phosphatase 62 U/L (38-126); Aspartate Amino Transferase 23 U/L (14-36); Bilirubin,Total 1.7 mg/dL (0.2-1.3); Blood Urea Nitrogen 38 mg/dL (7-17); Carbon Dioxide 31 mmol/L (22-30); Chloride 98 mmol/L (98-107); Estimated CRCL calculation 119 ml/min; Estimated Glomerular Filt Rate > 60; Glucose 106 mg/dL (65-105); Magnesium 2.2 mg/dL (1.6-2.3); Phosphorus 2.3 mg/dL (2.5-4.5); Potassium 4.2 mmol/L (3.4-5.0); Sodium 134 mmol/L (137-145)
[2019-11-28 06:07] LABS: HCO3 ABG 28.6 mEq/l (22.0-26.0); PCO2 ABG 41.2 mmHg (35.0-45.0); PO2 ABG 80.2 mmHg (80.0-100.0); pH ABG 7.459 (7.350-7.450)
[2019-11-28 06:08] LABS: Base Excess ABG 4.3 mEq/l (+/-2.0); Carboxyhemoglobin 0.9 % THb (0-2.0); Device VENTILATOR; Fractional Inspired Oxygen 50 %; Methemoglobin ABG 0.4 %THb (0-1.5); Modified Allen's Test Pass; Oxygen Content ABG 19.1 %vol (16.0-22.0); Oxygen Saturation ABG 96.4 % (95.0-100.0); Oxyhemoglobin 94.1 % THb (90.0-100.0); Reduced Hemoglobin 4.6 %THb (0-5.0); Site Drawn LEFT RADIAL; Total Hemoglobin 14.4 g/dL (12.0-18.0)
[2019-11-28 06:09] LABS: Arterial Blood Gas PEEP 8 cmH2O; Arterial Blood Gas Tidal Volume 450 ml; Arterial Blood Gas Vent Mode CMV; Arterial Blood Gas Ventilator rate 24 /MIN
[2019-11-28] MEDS: CENTRAL LINE FLUSH 10 ML IV PUSH ×3 (06:40→21:23)
[2019-11-28 06:44] LABS: Glucose Point of Care 111 (65-105)
--- NOTE | 2019-11-28 08:40 | WPDINTPN ---
Progress Note: A&P Assessment and Plan (1) Shock: Code(s): R57.9 - Shock, unspecified Status: Acute Assessment and Plan: Septic versus cardiogenic versus combination Small IV fluid bolus given on admission due to suggestion of pulmonary edema on chest x-ray Continue Levophed titration to maintain map Blood cultures and urine culture sent Empiric vancomycin and Primaxin Lactic acid normal echocardiogram pending (2) Acute respiratory failure with hypoxia and hypercapnia: Code(s): J96.01 - Acute respiratory failure with hypoxia; J96.02 - Acute respiratory failure with hypercapnia Status: Acute Assessment and Plan: Acute Respiratory failure secondary to CHF, COPD, obesity hypoventilation, possible pneumonia Continue full mechanical ventilation support to prevent hypoxemia/hypercarbia and end organ damage. ABG and PCXR reviewed and will repeat in am. Low tidal volume ventilation strategy to prevent volutrauma Bronchodilators Lasix 40 mg IV x1 today COVID-19 ruled out. SARS-CoV-2 PCR was negative Patient was on Airborne, Droplet and Contact Isolation which now has been discontinued. (3) Elevated troponin: Code(s): R79.89 - Other specified abnormal findings of blood chemistry Status: Acute Assessment and Plan: Small increase likely secondary to respiratory failure shock and acute kidney injury Aspirin and Eliquis (4) Acute on chronic combined systolic (congestive) and diastolic (congestive) heart failure: Code(s): I50.43 - Acute on chronic combined systolic (congestive) and diastolic (congestive) heart failure Status: Acute Assessment and Plan: Echo ordered Start diuresis today (5) Paroxysmal atrial fibrillation: Code(s): I48.0 - Paroxysmal atrial fibrillation Status: Acute Assessment and Plan: Currently rate controlled without any intervention Aspirin and Eliquis (6) Renal failure: Code(s): N19 - Unspecified kidney failure Status: Acute Assessment and Plan: Multifactorial Small IV fluid bolus given on admission Lasix was held Creatinine appears to have improved and is now in normal range Resume diuresis Monitor urine output electrolytes and creatinine King in place for accurate urine output Normal CK level (7) Ulcer of left medial lower extremity with fat layer exposed: Code(s): L97.822 - Non-pressure chronic ulcer of other part of left lower leg with fat layer exposed Status: Acute Assessment and Plan: XR IMPRESSION: 1. Deep ulceration and/or soft tissue debridement at the medial aspect of the left hindfoot without evident underlying osteomyelitis or other acute osseous abnormality. 2. Chronic appearing erosion at the medial head of the first metatarsal with classic location and appearance for gout. 3. Mild polyarticular osteoarthritis in the mid and forefoot. 4. Benign-appearing periosteal reaction along the medial side of the distal tibia with overlying dystrophic soft tissue calcifications which can be seen in the setting of chronic venous stasis. Empiric vancomycin and Primaxin Wound care consulted Lower extremity venous Dopplers ordered (8) DVT prophylaxis: Code(s): Z29.9 - Encounter for prophylactic measures, unspecified Status: Acute Assessment and Plan: DVT prophylaxis -Eliquis Stress ulcer prophylaxis -Pepcid Nutrition -continue Tube Feeds and sliding scale insulin Code Status - Full Code Total Critical Care Time - 31 minutes Due to a high probability of clinically significant, life threatening deterioration, the patient required my highest level of preparedness to intervene emergently and I personally spent this critical care time directly and personally managing the patient. This critical care time included obtaining a history; examining the patient; pulse oximetry; ordering and review of studies; arranging urgent treatment with development of a manage
[2019-11-28] MEDS: FUROSEMIDE INJ 40 MG/4 ML VIAL IV PUSH (08:50)
[2019-11-28] MEDS: TOLNAFTATE 1% POWDER 45 GM BTL 1 APPLIC TOPICAL ×2 (08:51→21:22)
[2019-11-28] MEDS: ASPIRIN 325 MG TABLET PO (08:51)
[2019-11-28] MEDS: FAMOTIDINE 20 MG TABLET PO ×2 (08:51→21:22)
--- NOTE | 2019-11-28 10:35 | PCDIET ---
Nutrition Follow-Up Complete: Nutrition Diagnosis: Inadequate oral intake related to oral intubation as evidenced by NPO status. Nutrition Goal: Patient to meet estimated nutritional needs. Goal in progress. Vital 1.2 advancing toward goal rate of 60mL/hr. Currently at 40mL/hr without reported issues. Last recorded weight is 202.3 kg which is increased from last review. Lasix given earlier today. Bowel Motility: No documented BM. Labs Reviewed: Glu (111), BUN (38), Ca (8.0), Na (134), Alb (3.1) Meds Noted: Pepcid, Versed, Fetanyl, Levophed, Primaxin, Vancomycin, Novolog Additional Notes: Left calf and ankle with ulcers. Abdomen and buttocks with cellulitis. Recommend continuing to advance tube feeding toward goal. Nutrition Monitoring and Evaluation: Follow up every Sunday/Sunday.
[2019-11-28 12:32] LABS: Glucose Point of Care 131 (65-105)
[2019-11-28] MEDS: SILVERGEL (ELTA) 45 ML 1 APPLIC TOPICAL (13:27)
[2019-11-28] MEDS: APIXABAN 5 MG TABLET PO ×2 (13:27→18:40)
[2019-11-28 13:51] LABS: Vancomycin Trough 16.8 ug/mL (10.0-20.0)
--- NOTE | 2019-11-28 15:50 | PM.IMPN ---
Progress Note: A&P Assessment and Plan (1) Shock: Code(s): R57.9 - Shock, unspecified Status: Acute Assessment and Plan: Etiology not entirely clear but would consider septic shock with possible source to include left foot wound, pneumonia, or even COVID-19. Covid is negative, bc and uc are negative (2) Acute respiratory failure with hypoxia and hypercapnia: Code(s): J96.01 - Acute respiratory failure with hypoxia; J96.02 - Acute respiratory failure with hypercapnia Status: Acute Assessment and Plan: Multifactorial in etiology to include sleep apnea. Congestive heart failure and possible underlying pneumonia. Intubated failed BIPAP theraphy (3) Elevated troponin: Code(s): R79.89 - Other specified abnormal findings of blood chemistry Status: Acute Assessment and Plan: Secondary to CHF (4) Acute on chronic combined systolic (congestive) and diastolic (congestive) heart failure: Code(s): I50.43 - Acute on chronic combined systolic (congestive) and diastolic (congestive) heart failure Status: Acute Assessment and Plan: off levophed now (5) Paroxysmal atrial fibrillation: Code(s): I48.0 - Paroxysmal atrial fibrillation Status: Acute Assessment and Plan: Rate controlled atrial fibrillation on telemetry at this time. Metoprolol currently on hold She is on apixaban for stroke prophylaxis. (6) Renal failure: Code(s): N19 - Unspecified kidney failure Status: Acute Assessment and Plan: Creat is NL now King catheter to monitor strict I/O. (7) Hypertension: Code(s): I10 - Essential (primary) hypertension Status: Acute Assessment and Plan: Lisinopril and metoprolol are currently on hold.weaning off levophed (8) Ulcer of left medial lower extremity with fat layer exposed: Code(s): L97.822 - Non-pressure chronic ulcer of other part of left lower leg with fat layer exposed Status: Acute Assessment and Plan: Wound cultures will be obtained. wound care on board (9) Obstructive sleep apnea on CPAP: Code(s): G47.33 - Obstructive sleep apnea (adult) (pediatric); Z99.89 - Dependence on other enabling machines and devices Status: Acute Assessment and Plan: Currently on the ventilator. Subjective Date/time seen: 11/28/19 15:50 Interval history: Elliott is a 63-year-old female with multiple medical problems including obstructive sleep apnea, combined systolic and diastolic congestive heart failure, pulmonary hypertension, paroxysmal atrial fibrillation, hypertension, morbid obesity, and peripheral vascular disease who presented to the emergency department earlier today via EMS from home for evaluation of shortness of breath. intubated in icu, failed bipap theraphy. ARF secondary to CHF excerbation ? sepsis Coming of levophed. Review of Systems Review of Systems: ROS unobtainable: Yes unobtainable due to endotracheal tube Exam Narrative: Exam Narrative: Pt is intubated in icu Large lady, morbidly obese Lungs decreased BS BL RRR presently RBKA large legs mild edema in left leg Objective Data Vital Signs Vital Signs: Vital Signs - 24 hr 11/27/19 16:00 11/27/19 16:59 11/27/19 17:15 Temperature 36.7 C Pulse Rate 84 84 Respiratory Rate 24 H 24 H Blood Pressure 118/85 Pulse Oximetry 97 98 11/27/19 17:27 11/27/19 18:00 11/27/19 18:30 Temperature
[2019-11-28 17:24] LABS: Glucose Point of Care 130 (65-105)
[2019-11-29] VITALS (21 sets, daily range): BP systolic 94–108; BP diastolic 69–88; PULSE 78–103; RESP 24; TEMP 36.7–37.1; O2SAT 93–99
[2019-11-29 00:26] LABS: Glucose Point of Care 91 (65-105)
[2019-11-29 04:21] LABS: Alveolar/Arterial O2 Gradient 309.7 mmHg; Arterial Blood Gas PEEP 8 cmH2O; Arterial Blood Gas Vent Mode CMV; Arterial Blood Gas Ventilator rate 24 /MIN; Base Excess ABG 3.7 mEq/l (+/-2.0); Carboxyhemoglobin 0.7 % THb (0-2.0); Device VENTILATOR; Fractional Inspired Oxygen 60 %; HCO3 ABG 28.4 mEq/l (22.0-26.0); Methemoglobin ABG 0.4 %THb (0-1.5); Modified Allen's Test Pass; Oxygen Content ABG 18.6 %vol (16.0-22.0); Oxygen Saturation ABG 94.6 % (95.0-100.0); PCO2 ABG 43.3 mmHg (35.0-45.0); PO2 ABG 70.5 mmHg (80.0-100.0); PO2 FiO2 Ratio Arterial Blood 1.17 %; Reduced Hemoglobin 6.9 %THb (0-5.0); Site Drawn LEFT RADIAL; Total Hemoglobin 14.4 g/dL (12.0-18.0); pH ABG 7.435 (7.350-7.450)
[2019-11-29 04:22] LABS: Arterial Blood Gas Tidal Volume 450 ml
[2019-11-29 04:32] LABS: Hematocrit 41.2 % (37.0-47.0); Hemoglobin 12.8 g/dL (12.0-15.0); Mean Corpuscular HGB Conc 31.1 g/dl (32-36); Mean Corpuscular Hemoglobin 27.7 pg (26-34); Mean Corpuscular Volume 89.2 fl (80-100); Mean Platelet Volume 9.8 fl (7.4-10.4); Platelet Count Result 226 k/mm3 (150-375); Red Blood Count 4.62 M/mm3 (4.2-5.4); Red Cell Distribution Width 15.6 % (11.5-14.5); White Blood Count 7.1 K/mm3 (4.5-10.0)
[2019-11-29 04:57] LABS: Alanine Aminotransferase 13 U/L (4-35); Albumin Level 3.1 g/dL (3.5-5.1); Alkaline Phosphatase 67 U/L (38-126); Aspartate Amino Transferase 31 U/L (14-36); Bilirubin,Total 1.5 mg/dL (0.2-1.3); Blood Urea Nitrogen 31 mg/dL (7-17); Calcium 7.9 mg/dL (8.4-10.2); Carbon Dioxide 32 mmol/L (22-30); Chloride 96 mmol/L (98-107); Estimated CRCL calculation 119 ml/min; Estimated Glomerular Filt Rate > 60; Glucose 118 mg/dL (65-105); Magnesium 2.1 mg/dL (1.6-2.3); Phosphorus 3.2 mg/dL (2.5-4.5); Potassium 4.3 mmol/L (3.4-5.0); Sodium 135 mmol/L (137-145)
[2019-11-29] MEDS: CENTRAL LINE FLUSH 10 ML IV PUSH ×3 (05:09→20:12)
[2019-11-29] MEDS: APIXABAN 5 MG TABLET PO ×2 (08:52→17:46)
[2019-11-29] MEDS: FUROSEMIDE INJ 40 MG/4 ML VIAL 20 MG IV PUSH ×2 (08:52→20:21)
[2019-11-29] MEDS: TOLNAFTATE 1% POWDER 45 GM BTL 1 APPLIC TOPICAL ×2 (08:52→20:22)
[2019-11-29] MEDS: ASPIRIN 325 MG TABLET PO (08:52)
[2019-11-29] MEDS: FAMOTIDINE 20 MG TABLET PO ×2 (08:52→20:21)
--- NOTE | 2019-11-29 09:57 | WPDINTPN ---
Progress Note: A&P Assessment and Plan (1) Shock: Code(s): R57.9 - Shock, unspecified Status: Acute Assessment and Plan: Septic versus cardiogenic versus combination Small IV fluid bolus given on admission due to suggestion of pulmonary edema on chest x-ray OFF LEVOPHED since early this morning Blood, urine, wound cultures were negative Continue vancomycin and Primaxin Lactic acid normal echocardiogram performed 11/28/2019 Summary 1. Despite definity contrast injection visualization is exceedingly difficult presumably because of obesity and mechanical ventilation. 2. Not possible to reliably reported ejection fraction based on this poor-quality exam. 3. Right atrial chamber dimension is moderately enlarged. 4. There is mild aortic valve sclerosis. 5. Aortic valve leaflet separation is well maintained the valve does not appear to be stenotic. (2) Acute respiratory failure with hypoxia and hypercapnia: Code(s): J96.01 - Acute respiratory failure with hypoxia; J96.02 - Acute respiratory failure with hypercapnia Status: Acute Assessment and Plan: Acute Respiratory failure secondary to CHF, COPD, obesity hypoventilation, possible pneumonia Continue full mechanical ventilation support to prevent hypoxemia/hypercarbia and end organ damage. ABG and PCXR reviewed, increased peep and decrease FiO2 Low tidal volume ventilation strategy to prevent volutrauma Bronchodilators Continue low-dose Lasix q.12 hours as patient just got off pressors COVID-19 ruled out. SARS-CoV-2 PCR was negative Patient was on Airborne, Droplet and Contact Isolation which now has been discontinued. (3) Elevated troponin: Code(s): R79.89 - Other specified abnormal findings of blood chemistry Status: Acute Assessment and Plan: Small increase likely secondary to respiratory failure shock and acute kidney injury Aspirin and Eliquis (4) Acute on chronic combined systolic (congestive) and diastolic (congestive) heart failure: Code(s): I50.43 - Acute on chronic combined systolic (congestive) and diastolic (congestive) heart failure Status: Acute Assessment and Plan: Echo as above Continue to (5) Paroxysmal atrial fibrillation: Code(s): I48.0 - Paroxysmal atrial fibrillation Status: Acute Assessment and Plan: Currently rate controlled without any intervention Aspirin and Eliquis (6) Renal failure: Code(s): N19 - Unspecified kidney failure Status: Acute Assessment and Plan: Acute kidney injury likely multifactorial Small IV fluid bolus given on admission Creatinine in normal range Will resume diuresis Monitor urine output electrolytes and creatinine King in place for accurate urine output Normal CK level (7) Ulcer of left medial lower extremity with fat layer exposed: Code(s): L97.822 - Non-pressure chronic ulcer of other part of left lower leg with fat layer exposed Status: Acute Assessment and Plan: XR IMPRESSION: 1. Deep ulceration and/or soft tissue debridement at the medial aspect of the left hindfoot without evident underlying osteomyelitis or other acute osseous abnormality. 2. Chronic appearing erosion at the medial head of the first metatarsal with classic location and appearance for gout. 3. Mild polyarticular osteoarthritis in the mid and forefoot. 4. Benign-appearing periosteal reaction along the medial side of the distal tibia with overlying dystrophic soft tissue calcifications which can be seen in the setting of chronic venous stasis. Empiric vancomycin and Primaxin Wound care consulted Lower extremity venous Dopplers 11/28/2019: No DVT in bilateral lower extremities (8) DVT prophylaxis: Code(s): Z29.9 - Encounter for prophylactic measures, unspecified Status: Acute Assessment and Plan: DVT prophylaxis -Eliquis Stress ulcer prophylaxis -Pepcid Nutrition -continue Tube Feeds and sliding
[2019-11-29 12:29] LABS: Glucose Point of Care 87 (65-105)
--- NOTE | 2019-11-29 12:31 | PM.CNPUL ---
Assessment and Plan Assessment and plan (1) Acute and chronic respiratory failure: Qualifiers: Respiratory failure complication: hypoxia and hypercapnia Qualified Code(s): J96.21 - Acute and chronic respiratory failure with hypoxia; J96.22 - Acute and chronic respiratory failure with hypercapnia Code(s): J96.20 - Acute and chronic respiratory failure, unspecified whether with hypoxia or hypercapnia Status: Acute Assessment and Plan: She had mildly elevated bicarbonate and she was hypoxemic on arrival. She had a similar admission November 2018 mainly acute respiratory failure. She was initially on BiPAP with some improvement but required intubation due to shock sepsis acute on chronic congestive heart failure. Her blood gases are now compensated in her CO2 is in the normal range. Due to her morbid obesity, elevated pCO2, a noninvasive positive-pressure ventilator NPPV may be helpful. She was using her CPAP which started to malfunction in the 3 days prior to admission. This will be discussed with the patient when she is extubated. She is at high risk for recurrent episode due to her multiple medical problems. (2) Hypoxemic respiratory failure, chronic: Code(s): J96.11 - Chronic respiratory failure with hypoxia Status: Acute Assessment and Plan: see above; A-a gradient was increased at admssion; may need O2 at baseline. (3) Obstructive sleep apnea on CPAP: Code(s): G47.33 - Obstructive sleep apnea (adult) (pediatric); Z99.89 - Dependence on other enabling machines and devices Status: Acute Assessment and Plan: Currently using PAP therapy according to the history (4) Morbid obesity: Code(s): E66.01 - Morbid (severe) obesity due to excess calories Status: Acute Assessment and Plan: (5) Shock: Code(s): R57.9 - Shock, unspecified Status: Acute Assessment and Plan: Due to sepsis ; cultures have been negative. Her norepinephrine has been weaned. Now is in the room the pump showed 1 micrograms/minute but Dr. Herrera indicates that she was no longer requiring pressors. Regarding her sepsis, she is on imipenem and vancomycin. White count is now in the normal range. (6) Acute renal insufficiency: Code(s): N28.9 - Disorder of kidney and ureter, unspecified Status: Acute Assessment and Plan: This has normalized. She improved wiht small amounts of IV Lasix for decompensated systolic congestive heart failure (7) Type 2 diabetes mellitus with polyneuropathy: Code(s): E11.42 - Type 2 diabetes mellitus with diabetic polyneuropathy Status: Acute Assessment and Plan: values now in the normal range (8) Status post below knee amputation of right lower extremity: Code(s): Z89.511 - Acquired absence of right leg below knee Status: Acute Assessment and Plan: (9) Paroxysmal atrial fibrillation: Code(s): I48.0 - Paroxysmal atrial fibrillation Status: Acute Assessment and Plan: has a history of this, and is atrial fibrillation now Additional Plan When she is hemodynamically, stable off pressors for over 24 hours, has had some clearing in the chest x-ray and decreased O2 requirement, we can look at weaning trial and extubation. She is at high risk for recurrent episode. I do not know who follows the
[2019-11-29] MEDS: SILVERGEL (ELTA) 45 ML 1 APPLIC TOPICAL (14:07)
--- NOTE | 2019-11-29 16:07 | P.PNIM_ITS ---
Progress Note: A&P Assessment and Plan (1) Shock: Code(s): R57.9 - Shock, unspecified Status: Acute Assessment and Plan: * Etiology not entirely clear but would consider septic shock with possible source to include left foot wound, pneumonia, or even COVID-19. * Covid is negative, bc and uc are negative * pt is on iv vanc and imipenem (2) Acute respiratory failure with hypoxia and hypercapnia: Code(s): J96.01 - Acute respiratory failure with hypoxia; J96.02 - Acute respiratory failure with hypercapnia Status: Acute Assessment and Plan: * Multifactorial in etiology to include sleep apnea. Congestive heart failure and possible underlying pneumonia. * Intubated failed BIPAP theraphy (3) Elevated troponin: Code(s): R79.89 - Other specified abnormal findings of blood chemistry Status: Acute Assessment and Plan: * Secondary to CHF (4) Acute on chronic combined systolic (congestive) and diastolic (congestive) heart failure: Code(s): I50.43 - Acute on chronic combined systolic (congestive) and diastolic (congestive) heart failure Status: Acute Assessment and Plan: * coming off levophed now on iv lasix bid (5) Paroxysmal atrial fibrillation: Code(s): I48.0 - Paroxysmal atrial fibrillation Status: Acute Assessment and Plan: * Rate controlled atrial fibrillation on telemetry * She is on apixaban for stroke prophylaxis. and ASA (6) Renal failure: Code(s): N19 - Unspecified kidney failure Status: Acute Assessment and Plan: * Creat is NL now * King catheter to monitor strict I/O. (7) Hypertension: Code(s): I10 - Essential (primary) hypertension Status: Acute Assessment and Plan: * Lisinopril and metoprolol are currently on hold.weaning off levophed (8) Ulcer of left medial lower extremity with fat layer exposed: Code(s): L97.822 - Non-pressure chronic ulcer of other part of left lower leg with fat layer exposed Status: Acute Assessment and Plan: * Wound cultures will be obtained. * wound care on board (9) Obstructive sleep apnea on CPAP: Code(s): G47.33 - Obstructive sleep apnea (adult) (pediatric); Z99.89 - Dependence on other enabling machines and devices Status: Acute Assessment and Plan: * Currently on the ventilator. Subjective Date/time seen: 11/29/19 16:07 Interval history: Elliott is a 63-year-old female with multiple medical problems including obstructive sleep apnea, combined systolic and diastolic congestive heart failure, pulmonary hypertension, paroxysmal atrial fi brillation, hypertension, morbid obesity, and peripheral vascular disease who presented to the emergency department earlier today via EMS from home for evaluation of shortness of breath. intubated in icu, failed bipap theraphy. ARF secondary to CHF excerbation ? sepsis Much the same as yesterday, coming off levophed, weaning of the vent Review of Systems Review of Systems
--- NOTE | 2019-11-29 16:07 | PM.IMPN ---
Progress Note: A&P Assessment and Plan (1) Shock: Code(s): R57.9 - Shock, unspecified Status: Acute Assessment and Plan: Etiology not entirely clear but would consider septic shock with possible source to include left foot wound, pneumonia, or even COVID-19. Covid is negative, bc and uc are negative pt is on iv vanc and imipenem (2) Acute respiratory failure with hypoxia and hypercapnia: Code(s): J96.01 - Acute respiratory failure with hypoxia; J96.02 - Acute respiratory failure with hypercapnia Status: Acute Assessment and Plan: Multifactorial in etiology to include sleep apnea. Congestive heart failure and possible underlying pneumonia. Intubated failed BIPAP theraphy (3) Elevated troponin: Code(s): R79.89 - Other specified abnormal findings of blood chemistry Status: Acute Assessment and Plan: Secondary to CHF (4) Acute on chronic combined systolic (congestive) and diastolic (congestive) heart failure: Code(s): I50.43 - Acute on chronic combined systolic (congestive) and diastolic (congestive) heart failure Status: Acute Assessment and Plan: coming off levophed now on iv lasix bid (5) Paroxysmal atrial fibrillation: Code(s): I48.0 - Paroxysmal atrial fibrillation Status: Acute Assessment and Plan: Rate controlled atrial fibrillation on telemetry She is on apixaban for stroke prophylaxis. and ASA (6) Renal failure: Code(s): N19 - Unspecified kidney failure Status: Acute Assessment and Plan: Creat is NL now King catheter to monitor strict I/O. (7) Hypertension: Code(s): I10 - Essential (primary) hypertension Status: Acute Assessment and Plan: Lisinopril and metoprolol are currently on hold.weaning off levophed (8) Ulcer of left medial lower extremity with fat layer exposed: Code(s): L97.822 - Non-pressure chronic ulcer of other part of left lower leg with fat layer exposed Status: Acute Assessment and Plan: Wound cultures will be obtained. wound care on board (9) Obstructive sleep apnea on CPAP: Code(s): G47.33 - Obstructive sleep apnea (adult) (pediatric); Z99.89 - Dependence on other enabling machines and devices Status: Acute Assessment and Plan: Currently on the ventilator. Subjective Date/time seen: 11/29/19 16:07 Interval history: Elliott is a 63-year-old female with multiple medical problems including obstructive sleep apnea, combined systolic and diastolic congestive heart failure, pulmonary hypertension, paroxysmal atrial fibrillation, hypertension, morbid obesity, and peripheral vascular disease who presented to the emergency department earlier today via EMS from home for evaluation of shortness of breath. intubated in icu, failed bipap theraphy. ARF secondary to CHF excerbation ? sepsis Much the same as yesterday, coming off levophed, weaning of the vent Review of Systems Review of Systems: ROS unobtainable: Yes unobtainable due to endotracheal tube Exam Narrative: Exam Narrative: Pt is intubated in icu Large lady, morbidly obese Lungs decreased BS BL RRR presently RBKA large legs mild edema in left leg wound on left leg Objective Data Vital Signs Vital Signs: Vital Signs - 24 hr 11/28/19 16:51 11/28/19 18:00 11/28/19 19:55 Temperature 36.8 C Pulse Rate 92 98 97 Respiratory Rate 24 H 24 H Blood Pressure 112/81
[2019-11-29 17:50] LABS: Glucose Point of Care 102 (65-105)
[2019-11-29 23:34] LABS: Glucose Point of Care 88 (65-105)
[2019-11-30] VITALS (20 sets, daily range): BP systolic 91–116; BP diastolic 59–96; PULSE 73–97; RESP 24; TEMP 36.9–37.3; O2SAT 90–95
[2019-11-30 05:01] LABS: Alveolar/Arterial O2 Gradient 242.7 mmHg; Base Excess ABG 3.2 mEq/l (+/-2.0); Carboxyhemoglobin 1.4 % THb (0-2.0); Device VENTILATOR; Fractional Inspired Oxygen 50 %; HCO3 ABG 28.8 mEq/l (22.0-26.0); Methemoglobin ABG 0.4 %THb (0-1.5); Modified Allen's Test Pass; Oxygen Content ABG 19.7 %vol (16.0-22.0); Oxygen Saturation ABG 91.2 % (95.0-100.0); Oxyhemoglobin 88.2 % THb (90.0-100.0); PCO2 ABG 47.2 mmHg (35.0-45.0); PO2 ABG 60.7 mmHg (80.0-100.0); PO2 FiO2 Ratio Arterial Blood 1.21 %; Site Drawn LEFT RADIAL; Total Hemoglobin 15.9 g/dL (12.0-18.0); pH ABG 7.403 (7.350-7.450)
[2019-11-30 05:02] LABS: Arterial Blood Gas Vent Mode CMV; Arterial Blood Gas Ventilator rate 24 /MIN
[2019-11-30 05:03] LABS: Arterial Blood Gas Pressure Support 0 cmH2O; Arterial Blood Gas Tidal Volume 450 ml
[2019-11-30] MEDS: CENTRAL LINE FLUSH 10 ML IV PUSH ×3 (05:13→21:19)
[2019-11-30 05:29] LABS: Hematocrit 42.5 % (37.0-47.0); Hemoglobin 13.2 g/dL (12.0-15.0); Mean Corpuscular HGB Conc 31.1 g/dl (32-36); Mean Corpuscular Hemoglobin 27.6 pg (26-34); Mean Corpuscular Volume 88.7 fl (80-100); Mean Platelet Volume 9.4 fl (7.4-10.4); Platelet Count Result 218 k/mm3 (150-375); Red Blood Count 4.79 M/mm3 (4.2-5.4); Red Cell Distribution Width 15.7 % (11.5-14.5); White Blood Count 7.2 K/mm3 (4.5-10.0)
[2019-11-30 05:50] LABS: Alanine Aminotransferase 21 U/L (4-35); Albumin Level 3.4 g/dL (3.5-5.1); Alkaline Phosphatase 68 U/L (38-126); Aspartate Amino Transferase 95 U/L (14-36); Bilirubin,Total 1.7 mg/dL (0.2-1.3); Blood Urea Nitrogen 27 mg/dL (7-17); Carbon Dioxide 31 mmol/L (22-30); Chloride 94 mmol/L (98-107); Estimated CRCL calculation 136 ml/min; Estimated Glomerular Filt Rate > 60; Glucose 89 mg/dL (65-105); Magnesium 2.1 mg/dL (1.6-2.3); Phosphorus 3.6 mg/dL (2.5-4.5); Potassium 4.4 mmol/L (3.4-5.0); Sodium 131 mmol/L (137-145)
[2019-11-30] MEDS: SILVERGEL (ELTA) 45 ML 1 APPLIC TOPICAL (08:10)
[2019-11-30] MEDS: TOLNAFTATE 1% POWDER 45 GM BTL 1 APPLIC TOPICAL ×2 (08:10→20:05)
[2019-11-30] MEDS: APIXABAN 5 MG TABLET PO ×2 (08:10→17:38)
[2019-11-30] MEDS: ASPIRIN 325 MG TABLET PO (08:10)
[2019-11-30] MEDS: FAMOTIDINE 20 MG TABLET PO ×2 (08:10→20:05)
[2019-11-30] MEDS: FUROSEMIDE INJ 40 MG/4 ML VIAL IV PUSH ×2 (09:40→20:04)
[2019-11-30 09:59] LABS: Hepatitis B Surface Antigen Negative (Negative)
[2019-11-30 10:04] LABS: HAV RESULT Negative (Negative); Hepatitis B Core IgM Result Negative (Negative)
[2019-11-30 10:16] LABS: Hepatitis C Virus Antibody Negative (Negative)
[2019-11-30 12:03] LABS: Glucose Point of Care 102 (65-105)
--- NOTE | 2019-11-30 13:49 | WPDINTPN ---
Progress Note: A&P Assessment and Plan (1) Shock: Code(s): R57.9 - Shock, unspecified Status: Acute Assessment and Plan: RESOLVED. Patient off vasopressors Septic versus cardiogenic versus combination Small IV fluid bolus given on admission due to suggestion of pulmonary edema on chest x-ray Blood, urine, wound cultures were negative Continue vancomycin and Primaxin Lactic acid normal echocardiogram performed 11/28/2019 Summary 1. Despite definity contrast injection visualization is exceedingly difficult presumably because of obesity and mechanical ventilation. 2. Not possible to reliably reported ejection fraction based on this poor-quality exam. 3. Right atrial chamber dimension is moderately enlarged. 4. There is mild aortic valve sclerosis. 5. Aortic valve leaflet separation is well maintained the valve does not appear to be stenotic. (2) Acute respiratory failure with hypoxia and hypercapnia: Code(s): J96.01 - Acute respiratory failure with hypoxia; J96.02 - Acute respiratory failure with hypercapnia Status: Acute Assessment and Plan: Acute Respiratory failure secondary to CHF, COPD, obesity hypoventilation, possible pneumonia Continue full mechanical ventilation support to prevent hypoxemia/hypercarbia and end organ damage. ABG and PCXR reviewed, increased peep and decrease FiO2 Low tidal volume ventilation strategy to prevent volutrauma Bronchodilators Will increase dose of Lasix, target negative fluid balance of at least 1-1.5 L COVID-19 ruled out. SARS-CoV-2 PCR was negative Patient was on Airborne, Droplet and Contact Isolation which now has been discontinued. (3) Elevated troponin: Code(s): R79.89 - Other specified abnormal findings of blood chemistry Status: Acute Assessment and Plan: Small increase likely secondary to respiratory failure shock and acute kidney injury Aspirin and Eliquis (4) Acute on chronic combined systolic (congestive) and diastolic (congestive) heart failure: Code(s): I50.43 - Acute on chronic combined systolic (congestive) and diastolic (congestive) heart failure Status: Acute Assessment and Plan: Echo as above Will discuss with Cardiology regarding repeating echocardiogram on Sunday12/01/2019 (5) Paroxysmal atrial fibrillation: Code(s): I48.0 - Paroxysmal atrial fibrillation Status: Acute Assessment and Plan: Currently rate controlled without any intervention Aspirin and Eliquis (6) Renal failure: Code(s): N19 - Unspecified kidney failure Status: Acute Assessment and Plan: Acute kidney injury likely multifactorial Small IV fluid bolus given on admission Creatinine in normal range this morning Continue diuresis Monitor urine output electrolytes and creatinine King in place for accurate urine output Normal CK level (7) Ulcer of left medial lower extremity with fat layer exposed: Code(s): L97.822 - Non-pressure chronic ulcer of other part of left lower leg with fat layer exposed Status: Acute Assessment and Plan: XR IMPRESSION: 1. Deep ulceration and/or soft tissue debridement at the medial aspect of the left hindfoot without evident underlying osteomyelitis or other acute osseous abnormality. 2. Chronic appearing erosion at the medial head of the first metatarsal with classic location and appearance for gout. 3. Mild polyarticular osteoarthritis in the mid and forefoot. 4. Benign-appearing periosteal reaction along the medial side of the distal tibia with overlying dystrophic soft tissue calcifications which can be seen in the setting of chronic venous stasis. Empiric vancomycin and Primaxin Wound care consulted Lower extremity venous Dopplers 11/28/2019: No DVT in bilateral lower extremities (8) DVT prophylaxis: Code(s): Z29.9 - Encounter for prophylactic measures, unspecified Status: Acute Assessment and Plan: DVT proph
[2019-11-30 13:55] LABS: Vancomycin Trough 21.7 ug/mL (10.0-20.0)
--- NOTE | 2019-11-30 16:08 | P.PNIM_ITS ---
Progress Note: A&P Assessment and Plan (1) Shock: Code(s): R57.9 - Shock, unspecified Status: Acute Assessment and Plan: * Etiology not entirely clear but would consider septic shock with possible source to include left foot wound, pneumonia, or even COVID-19. * Covid is negative, bc and uc are negative * pt is on iv vanc and imipenem * cultures appear nl (2) Acute respiratory failure with hypoxia and hypercapnia: Code(s): J96.01 - Acute respiratory failure with hypoxia; J96.02 - Acute respiratory failure with hypercapnia Status: Acute Assessment and Plan: * Multifactorial in etiology to include sleep apnea. Congestive heart failure and possible underlying pneumonia. * Intubated failed BIPAP theraphy (3) Elevated troponin: Code(s): R79.89 - Other specified abnormal findings of blood chemistry Status: Acute Assessment and Plan: * Secondary to CHF (4) Acute on chronic combined systolic (congestive) and diastolic (congestive) heart failure: Code(s): I50.43 - Acute on chronic combined systolic (congestive) and diastolic (congestive) heart failure Status: Acute Assessment and Plan: * coming off levophed now on iv lasix bid (5) Paroxysmal atrial fibrillation: Code(s): I48.0 - Paroxysmal atrial fibrillation Status: Acute Assessment and Plan: * Rate controlled atrial fibrillation on telemetry * She is on apixaban for stroke prophylaxis. and ASA (6) Renal failure: Code(s): N19 - Unspecified kidney failure Status: Acute Assessment and Plan: * Creat is NL now * King catheter to monitor strict I/O. (7) Hypertension: Code(s): I10 - Essential (primary) hypertension Status: Acute Assessment and Plan: * Lisinopril and metoprolol are currently on hold.weaning off levophed (8) Ulcer of left medial lower extremity with fat layer exposed: Code(s): L97.822 - Non-pressure chronic ulcer of other part of left lower leg with fat layer exposed Status: Acute Assessment and Plan: * Wound cultures will be obtained. * wound care on board (9) Obstructive sleep apnea on CPAP: Code(s): G47.33 - Obstructive sleep apnea (adult) (pediatric); Z99.89 - Dependence on other enabling machines and devices Status: Acute Assessment and Plan: * Currently on the ventilator. Subjective Date/time seen: 11/30/19 16:08 Interval history: Elliott is a 63-year-old female with multiple medical problems including obstructive sleep apnea, combined systolic and diastolic congestive heart failure, pulmonary hypertension, paroxysmal atrial fibrillation, hypertension, morbid obesity, and peripheral vascular disease who presented to the emergency department earlier today via EMS from home for evaluation of shortness of breath. intubated in icu, failed bipap theraphy. ARF secondary to CHF excerbation ? sepsis Much the same as yesterday, off levophed, weaning of the vent Review of Systems
--- NOTE | 2019-11-30 16:08 | PM.IMPN ---
Progress Note: A&P Assessment and Plan (1) Shock: Code(s): R57.9 - Shock, unspecified Status: Acute Assessment and Plan: Etiology not entirely clear but would consider septic shock with possible source to include left foot wound, pneumonia, or even COVID-19. Covid is negative, bc and uc are negative pt is on iv vanc and imipenem cultures appear nl (2) Acute respiratory failure with hypoxia and hypercapnia: Code(s): J96.01 - Acute respiratory failure with hypoxia; J96.02 - Acute respiratory failure with hypercapnia Status: Acute Assessment and Plan: Multifactorial in etiology to include sleep apnea. Congestive heart failure and possible underlying pneumonia. Intubated failed BIPAP theraphy (3) Elevated troponin: Code(s): R79.89 - Other specified abnormal findings of blood chemistry Status: Acute Assessment and Plan: Secondary to CHF (4) Acute on chronic combined systolic (congestive) and diastolic (congestive) heart failure: Code(s): I50.43 - Acute on chronic combined systolic (congestive) and diastolic (congestive) heart failure Status: Acute Assessment and Plan: coming off levophed now on iv lasix bid (5) Paroxysmal atrial fibrillation: Code(s): I48.0 - Paroxysmal atrial fibrillation Status: Acute Assessment and Plan: Rate controlled atrial fibrillation on telemetry She is on apixaban for stroke prophylaxis. and ASA (6) Renal failure: Code(s): N19 - Unspecified kidney failure Status: Acute Assessment and Plan: Creat is NL now King catheter to monitor strict I/O. (7) Hypertension: Code(s): I10 - Essential (primary) hypertension Status: Acute Assessment and Plan: Lisinopril and metoprolol are currently on hold.weaning off levophed (8) Ulcer of left medial lower extremity with fat layer exposed: Code(s): L97.822 - Non-pressure chronic ulcer of other part of left lower leg with fat layer exposed Status: Acute Assessment and Plan: Wound cultures will be obtained. wound care on board (9) Obstructive sleep apnea on CPAP: Code(s): G47.33 - Obstructive sleep apnea (adult) (pediatric); Z99.89 - Dependence on other enabling machines and devices Status: Acute Assessment and Plan: Currently on the ventilator. Subjective Date/time seen: 11/30/19 16:08 Interval history: Elliott is a 63-year-old female with multiple medical problems including obstructive sleep apnea, combined systolic and diastolic congestive heart failure, pulmonary hypertension, paroxysmal atrial fibrillation, hypertension, morbid obesity, and peripheral vascular disease who presented to the emergency department earlier today via EMS from home for evaluation of shortness of breath. intubated in icu, failed bipap theraphy. ARF secondary to CHF excerbation ? sepsis Much the same as yesterday, off levophed, weaning of the vent Review of Systems Review of Systems: ROS unobtainable: Yes unobtainable due to endotracheal tube Exam Narrative: Exam Narrative: Pt is intubated in icu Large lady, morbidly obese Lungs decreased BS BL RRR presently RBKA large legs mild edema in left leg wound on left leg venous ulcer Objective Data Vital Signs Vital Signs: Vital Signs - 24 hr 11/29/19 17:10 11/29/19 18:00 11/29/19 19:35 Temperature 36.8 C Pulse Rate 95 86 78 Respiratory Rate 24 H
[2019-11-30 17:42] LABS: Glucose Point of Care 100 (65-105)
--- NOTE | 2019-11-30 18:56 | P.PNPL_ITS ---
Progress Note: A&P Assessment and Plan (1) Acute and chronic respiratory failure: Qualifiers: Respiratory failure complication: hypoxia and hypercapnia Qualified Code(s): J96.21 - Acute and chronic respiratory failure with hypoxia; J96.22 - Acute and chronic respiratory failure with hypercapnia Code(s): J96.20 - Acute and chronic respiratory failure, unspecified whether with hypoxia or hypercapnia Status: Acute Assessment and Plan: She had mildly elevated bicarbonate and she was hypoxemic on arrival. She had a similar admission November 2018 mainly acute respiratory failure. She was initially on BiPAP with some improvement but required intubation due to shock sepsis acute on chronic congestive heart failure. Her blood gases are now compensated in her CO2 is in the normal range. Due to her morbid obesity, elevated pCO2, a noninvasive positive-pressure ventilator NPPV may be helpful. She was using her CPAP which started to malfunction in the 3 days prior to admission. This will be discussed with the patient when she is extubated. She is at high risk for recurrent episode due to her multiple medical problems. (2) Hypoxemic respiratory failure, chronic: Code(s): J96.11 - Chronic respiratory failure with hypoxia Status: Acute Assessment and Plan: see above; A-a gradient was increased at admssion; may need O2 at baseline. (3) Obstructive sleep apnea on CPAP: Code(s): G47.33 - Obstructive sleep apnea (adult) (pediatric); Z99.89 - Dependence on other enabling machines and devices Status: Acute Assessment and Plan: Currently using PAP therapy according to the history (4) Morbid obesity: Code(s): E66.01 - Morbid (severe) obesity due to excess calories Status: Acute Assessment and Plan: (5) Shock: Code(s): R57.9 - Shock, unspecified Status: Acute Assessment and Plan: Due to sepsis ; cultures have been negative. Her norepinephrine has been weaned. Now is in the room the pump showed 1 micrograms/minute but Dr. Herrera indicates that she was no longer requiring pressors. Regarding her sepsis, she is on imipenem and vancomycin. White count is now in the normal range. (6) Acute renal insufficiency: Code(s): N28.9 - Disorder of kidney and ureter, unspecified Status: Acute Assessment and Plan: This has normalized. She improved wiht small amounts of IV Lasix for decompensated systolic congestive heart failure (7) Type 2 diabetes mellitus with polyneuropathy: Code(s): E11.42 - Type 2 diabetes mellitus with diabetic polyneuropathy Status: Acute Assessment and Plan: values now in the normal range (8) Status post below knee amputation of right lower extremity: Code(s): Z89.511 - Acquired absence of right leg below knee Status: Acute Assessment and Plan: (9) Paroxysmal atrial fibrillation: Code(s): I48.0 - Paroxysmal atrial fibrillation Status: Acute Assessment and Plan: has a history of this, and is atrial fibrillation now
[2019-12-01] VITALS (22 sets, daily range): BP systolic 86–112; BP diastolic 54–81; PULSE 73–97; RESP 22–24; TEMP 37.2–37.4; O2SAT 92–100
[2019-12-01 00:10] LABS: Glucose Point of Care 100 (65-105)
[2019-12-01 03:20] LABS: Alveolar/Arterial O2 Gradient 227.7 mmHg; Base Excess ABG 5.9 mEq/l (+/-2.0); Carboxyhemoglobin 1.1 % THb (0-2.0); Fractional Inspired Oxygen 50 %; HCO3 ABG 30.2 mEq/l (22.0-26.0); Methemoglobin ABG 0.3 %THb (0-1.5); Oxygen Content ABG 18.7 %vol (16.0-22.0); Oxygen Saturation ABG 96.5 % (95.0-100.0); Oxyhemoglobin 94.3 % THb (90.0-100.0); PCO2 ABG 42.4 mmHg (35.0-45.0); PO2 ABG 81.1 mmHg (80.0-100.0); PO2 FiO2 Ratio Arterial Blood 1.62 %; Reduced Hemoglobin 4.3 %THb (0-5.0); Total Hemoglobin 14.1 g/dL (12.0-18.0)
[2019-12-01 03:21] LABS: Device VENTILATOR; Modified Allen's Test Pass; Site Drawn LEFT RADIAL
[2019-12-01 03:22] LABS: Arterial Blood Gas PEEP 10 cmH2O; Arterial Blood Gas Tidal Volume 450 ml; Arterial Blood Gas Vent Mode CMV; Arterial Blood Gas Ventilator rate 24 /MIN
[2019-12-01 05:11] LABS: Hemoglobin 12.7 g/dL (12.0-15.0); Mean Corpuscular Hemoglobin 27.4 pg (26-34); Mean Corpuscular Volume 88.6 fl (80-100); Mean Platelet Volume 9.7 fl (7.4-10.4); Platelet Count Result 195 k/mm3 (150-375); Red Blood Count 4.63 M/mm3 (4.2-5.4); Red Cell Distribution Width 15.8 % (11.5-14.5)
[2019-12-01] MEDS: CENTRAL LINE FLUSH 10 ML IV PUSH ×3 (05:24→21:10)
[2019-12-01 05:32] LABS: Alanine Aminotransferase 26 U/L (4-35); Albumin Level 3.2 g/dL (3.5-5.1); Alkaline Phosphatase 72 U/L (38-126); Aspartate Amino Transferase 114 U/L (14-36); Bilirubin,Total 1.9 mg/dL (0.2-1.3); Blood Urea Nitrogen 24 mg/dL (7-17); Carbon Dioxide 33 mmol/L (22-30); Chloride 93 mmol/L (98-107); Estimated CRCL calculation 120 ml/min; Estimated Glomerular Filt Rate > 60; Glucose 110 mg/dL (65-105); Phosphorus 3.6 mg/dL (2.5-4.5); Sodium 132 mmol/L (137-145)
[2019-12-01 09:41] LABS: Arterial Blood Gas PEEP 10 cmH2O
--- NOTE | 2019-12-01 10:20 | PM.PNCARD ---
Progress Note: A&P Assessment and Plan (1) Shock: Code(s): R57.9 - Shock, unspecified Status: Acute Assessment and Plan: Shock, Probable septic shock requiring intubation, Levophed weaned off yesterday. Management per sales associate. (2) Acute on chronic combined systolic (congestive) and diastolic (congestive) heart failure: Code(s): I50.43 - Acute on chronic combined systolic (congestive) and diastolic (congestive) heart failure Status: Acute Assessment and Plan: Acute on chronic systolic and diastolic heart failure. Since she is now off Levophed attempting to aggressively diurese her. Echocardiogram 06/18/2018 revealed that the left ventricle was not well visualized even with definity contrast. Mild concentric LVH. Mild enlargement of the LV cavity. Mild to moderate global LV systolic dysfunction. Best estimate of EF was by M-mode of 47 %. Mild enlargement of the right ventricle. Mild enlargement of the left and right atrium. Moderate pulmonary hypertension estimated in the RVSP at 65 mm Hg. Mild pulmonic regurgitation. Dilated inferior vena cava with poor inspiratory collapse consistent with elevated right atrial pressures. No significant change when compared to the echo of 2014. Echocardiogram 11/28/2019 was not helpful even with definity. The chambers were not well visualized. Echocardiogram was very difficult due to positioning, her body habitus as well as the ventilator. When discussed with Boris Cervantes [facility] even with extreme positioning on to her left side due to her body habitus still may not be able to get a good acoustic window. Limited information may be obtained from a transesophageal echocardiogram but will stop her tube feedings at midnight and assess further tomorrow. (3) Persistent atrial fibrillation: Code(s): I48.19 - Other persistent atrial fibrillation Status: Acute Assessment and Plan: History of persistent atrial fibrillation, transiently with a rapid ventricular response on admission, which improved with only supportive therapy. Continue anticoagulation with Eliquis. Have not resumed her home metoprolol because of her hypotension (4) Elevated troponin: Code(s): R79.89 - Other specified abnormal findings of blood chemistry Status: Acute Assessment and Plan: Very mildly elevated troponin, secondary to CHF, kidney disease, and physiologic stress. No indication of ACS. (5) Acute respiratory failure with hypoxia and hypercapnia: Code(s): J96.01 - Acute respiratory failure with hypoxia; J96.02 - Acute respiratory failure with hypercapnia Status: Acute Assessment and Plan: Remains intubated. 50% FiO2 at this time. Diuresing as above. COVID negative. Management per sales associate. Additional Plan Discussed with Dr. Cruz [id number] 12/01/2019 Subjective Date/time seen: 12/01/19 10:20 Interval history: Follow-up for: multiple medical problems including obstructive sleep apnea, combined systolic and diastolic congestive heart failure, pulmonary hypertension, paroxysmal atrial fibrillation, hypertension, morbid obesity and peripheral vascular that presented to the hospital for shortness of breath and chest pain. She has been intubated since 11/26/2019. Date of service: 12/01/2019 Subjective: Intubated, sedated not responding to questions. Tries to open eyes but will not follow commands. D Review of Systems Review of Systems: ROS unobtainable: Yes unobtainable due to endotracheal tube Exam Narrative: Exam Narrative: Morbidly obese female with a BMI of 64 kg/m2, intubated, sedated. Const: General: comfortable, no acute distress and other (Sedated.) Nutritional Appearance: obese Orientation/co
--- NOTE | 2019-12-01 10:35 | WPDGICN ---
Assessment and Plan Assessment and plan (1) Elevated LFTs: Code(s): R79.89 - Other specified abnormal findings of blood chemistry Status: Acute Assessment and Plan: Elevated LFTs noted to be present for at least the last 1 and half years. Most likely this is related underlying fatty liver. Because of her acute respiratory failure sepsis and hypotension is possible that this is related to an infection. Hepatitis ABC serologies are noted be negative. I will check for additional lab studies for underlying liver disease. Suggest monitoring conservatively at this time. (2) Acute and chronic respiratory failure: Qualifiers: Respiratory failure complication: hypoxia and hypercapnia Qualified Code(s): J96.21 - Acute and chronic respiratory failure with hypoxia; J96.22 - Acute and chronic respiratory failure with hypercapnia Code(s): J96.20 - Acute and chronic respiratory failure, unspecified whether with hypoxia or hypercapnia Status: Acute Assessment and Plan: Patient now on the ventilator. Unable to give any additional history. Pulmonary service is following her she has underlying sleep apnea, Simmering hypertension. And congestive heart failure. (3) Paroxysmal atrial fibrillation: Code(s): I48.0 - Paroxysmal atrial fibrillation Status: Acute Assessment and Plan: Patient on Eliquis anticoagulation because of atrial fibrillation. She does have a distant history of ulcer disease. Plan is for close monitoring and perhaps prophylactic H2 blockers given her history of ulcer disease while she is intubated in the unit (4) Morbid obesity: Code(s): E66.01 - Morbid (severe) obesity due to excess calories Status: Acute (5) Acute on chronic combined systolic (congestive) and diastolic (congestive) heart failure: Code(s): I50.43 - Acute on chronic combined systolic (congestive) and diastolic (congestive) heart failure Status: Acute (6) Hypoxemic respiratory failure, chronic: Code(s): J96.11 - Chronic respiratory failure with hypoxia Status: Acute (7) Type 2 diabetes mellitus with polyneuropathy: Code(s): E11.42 - Type 2 diabetes mellitus with diabetic polyneuropathy Status: Acute GI Consult Note Consult date/time: 12/01/19 10:35 HPI: Eden Gallagher is a 63 year old female seen in evaluation at the request of hospitalist service. I am asked to see the patient because of elevated LFTs. Patient has elevated LFTs dating back at least a year and a half. Ms. Ellis has multiple medical problems include morbid obesity. Underlying sleep apnea congestive heart failure, atrial fibrillation. She was admitted to the hospital 715 with increasing shortness of breath. Found to have respiratory failure ultimately intubated. She was felt to have pulmonary edema volume overload. She has been treated for sepsis and has been on pressor agents which recently have been decreased some degree. She is unable to give any history most history is obtained from the chart at this time. Past medical history is significant for congestive failure failure, atrial fibrillation, she is on Eliquis anticoagulation, congestive heart failure, diabetes mellitus. She has a prior history of right [id number] amputation. Review of Systems Review of Systems: ROS unobtainable: Yes unobtainable due to endotracheal tube PMFSH Past Medical History Medical History Anxiety Asthma Chronic anemia Chronic venous stasis Combined systolic and diastolic congestive heart failure Echocardiogram in June 2018 demonstrated mild to moderate global left ventricular systolic dysfunction with an ingestion fraction estimated 47%, pseudonormal diastolic dysfunction grade 2, mild concentric LVH, mild enlargement of the left ventricle cavity, mild enlargement of the right ventricle, mild biatrial enlargement, and moderate
--- NOTE | 2019-12-01 10:53 | PCDIET ---
ICU Rounding Note: Patient remains intubated on Vital 1.2 at 60mL/hr goal rate. Tolerating well without reported issues. Last recorded weight is 200.2kg which is down from last review. Bowel Motility: No documented BM. Discussed with team; plan for Miralax. Labs Reviewed: Glu (110), BUN (24), Na (132), Alb (3.2), Lizeth Ca (8.64) Meds Noted: Pepcid, Primaxin, Fentanyl, Novolog, Levophed, Lasix, Versed Additional Notes: Left calf and ankle ulcers documented. Water flushes changed from 30mL every 4 hours to 30mL every 6 hours. Following daily in ICU rounds. Assessing/reassessing every Sunday/Sunday.
[2019-12-01] MEDS: ASPIRIN 325 MG TABLET PO (11:01)
[2019-12-01] MEDS: APIXABAN 5 MG TABLET PO ×2 (11:01→17:07)
[2019-12-01] MEDS: SILVERGEL (ELTA) 45 ML 1 APPLIC TOPICAL (11:01)
[2019-12-01] MEDS: FUROSEMIDE INJ 100 MG/10 ML VIAL 80 MG IV PUSH ×2 (11:01→21:06)
[2019-12-01] MEDS: FAMOTIDINE 20 MG TABLET PO ×2 (11:01→21:06)
[2019-12-01] MEDS: TOLNAFTATE 1% POWDER 45 GM BTL 1 APPLIC TOPICAL ×2 (11:02→21:07)
[2019-12-01 11:17] LABS: Glucose Point of Care 105 (65-105)
[2019-12-01] MEDS: polyethylene glycoL 3350 17 GM POWD.PACK PO (11:18)
[2019-12-01 11:53] LABS: Bilirubin Indirect 1.3 mg/dL (0-1.1); Bilirubin,Total 1.7 mg/dL (0.2-1.3)
--- NOTE | 2019-12-01 13:57 | WPDINTPN ---
Progress Note: A&P Assessment and Plan (1) Shock: Code(s): R57.9 - Shock, unspecified Status: Acute Assessment and Plan: RESOLVED. Patient off vasopressors Septic versus cardiogenic versus combination Small IV fluid bolus given on admission due to suggestion of pulmonary edema on chest x-ray Blood, urine, wound cultures were negative Continue vancomycin and Primaxin Lactic acid normal echocardiogram performed 11/28/2019 Summary 1. Despite definity contrast injection visualization is exceedingly difficult presumably because of obesity and mechanical ventilation. 2. Not possible to reliably reported ejection fraction based on this poor-quality exam. 3. Right atrial chamber dimension is moderately enlarged. 4. There is mild aortic valve sclerosis. 5. Aortic valve leaflet separation is well maintained the valve does not appear to be stenotic. discussed with cardiology ORDER DETAILER, she spoke to the echocardiogram sanitation technician who feels that even if we have her in a better position we will still not be able to get good cardiac windows for adequate echocardiogram study. Alanis Estrada will discuss with Dr. Cruz regarding AMANDA or any other modality to evaluate cardiac and valvular function along with obtaining pulmonary pressures. (2) Acute respiratory failure with hypoxia and hypercapnia: Code(s): J96.01 - Acute respiratory failure with hypoxia; J96.02 - Acute respiratory failure with hypercapnia Status: Acute Assessment and Plan: Acute Respiratory failure secondary to CHF, COPD, obesity hypoventilation, possible pneumonia Continue full mechanical ventilation support to prevent hypoxemia/hypercarbia and end organ damage. ABG and PCXR reviewed, increased peep and decrease FiO2 Low tidal volume ventilation strategy to prevent volutrauma Bronchodilators Will increase dose of Lasix, target negative fluid balance of at least 1-1.5 L COVID-19 ruled out. SARS-CoV-2 PCR was negative Patient OFF Airborne, Droplet and Contact Isolation . (3) Elevated troponin: Code(s): R79.89 - Other specified abnormal findings of blood chemistry Status: Acute Assessment and Plan: Small increase likely secondary to respiratory failure shock and acute kidney injury Aspirin and Eliquis (4) Acute on chronic combined systolic (congestive) and diastolic (congestive) heart failure: Code(s): I50.43 - Acute on chronic combined systolic (congestive) and diastolic (congestive) heart failure Status: Acute Assessment and Plan: Echo as above Will discuss with Cardiology regarding repeating echocardiogram Or AMANDA to give us adequate cardiac and valvular function, pulmonary pressures patient (5) Paroxysmal atrial fibrillation: Code(s): I48.0 - Paroxysmal atrial fibrillation Status: Acute Assessment and Plan: Currently rate controlled without any intervention Aspirin and Eliquis (6) Renal failure: Code(s): N19 - Unspecified kidney failure Status: Acute Assessment and Plan: Acute kidney injury likely multifactorial Small IV fluid bolus given on admission Creatinine in normal range this morning Continue diuresis Monitor urine output electrolytes and creatinine King in place for accurate urine output Normal CK level (7) Ulcer of left medial lower extremity with fat layer exposed: Code(s): L97.822 - Non-pressure chronic ulcer of other part of left lower leg with fat layer exposed Status: Acute Assessment and Plan: XR IMPRESSION: 1. Deep ulceration and/or soft tissue debridement at the medial aspect of the left hindfoot without evident underlying osteomyelitis or other acute osseous abnormality. 2. Chronic appearing erosion at the medial head of the first metatarsal with classic location and appearance for gout. 3. Mild polyarticular osteoarthritis in the mid and forefoot. 4. Benign-appearing periosteal reaction along the medial side of the distal
--- NOTE | 2019-12-01 17:09 | P.PNIM_ITS ---
Progress Note: A&P Assessment and Plan (1) Shock: Code(s): R57.9 - Shock, unspecified Status: Acute Assessment and Plan: * Etiology not entirely clear but would consider septic shock with possible source to include left foot wound, pneumonia, or even COVID-19. * Covid is negative, bc and uc are negative * pt is on iv vanc and imipenem * cultures appear nl (2) Acute respiratory failure with hypoxia and hypercapnia: Code(s): J96.01 - Acute respiratory failure with hypoxia; J96.02 - Acute respiratory failure with hypercapnia Status: Acute Assessment and Plan: * Multifactorial in etiology to include sleep apnea. Congestive heart failure and possible underlying pneumonia. * Intubated failed BIPAP theraphy 12/01/19 17:09 63-year-old female with history of diabetes diabetic, deep ulceration,wound status post right BKA presented emergency department with shortness of presumably exacerbation of CHF is seen cardiac echo was not able to determine etiology due to morbid obesity, patient is being diuresed, on vent, patient had elevated LFT seen by GI suspect most likely secondary to morbid obesity and fatty liver, (3) Elevated troponin: Code(s): R79.89 - Other specified abnormal findings of blood chemistry Status: Acute Assessment and Plan: * Secondary to CHF (4) Acute on chronic combined systolic (congestive) and diastolic (congestive) heart failure: Code(s): I50.43 - Acute on chronic combined systolic (congestive) and diastolic (congestive) heart failure Status: Acute Assessment and Plan: * coming off levophed now on iv lasix bid (5) Paroxysmal atrial fibrillation: Code(s): I48.0 - Paroxysmal atrial fibrillation Status: Acute Assessment and Plan: * Rate controlled atrial fibrillation on telemetry * She is on apixaban for stroke prophylaxis. and ASA (6) Renal failure: Code(s): N19 - Unspecified kidney failure Status: Acute Assessment and Plan: * Creat is NL now * King catheter to monitor strict I/O. (7) Hypertension: Code(s): I10 - Essential (primary) hypertension Status: Acute Assessment and Plan: * Lisinopril and metoprolol are currently on hold.weaning off levophed (8) Ulcer of left medial lower extremity with fat layer exposed: Code(s): L97.822 - Non-pressure chronic ulcer of other part of left lower leg with fat layer exposed Status: Acute Assessment and Plan: * Wound cultures will be obtained. * wound care on board (9) Obstructive sleep apnea on CPAP: Code(s): G47.33 - Obstructive sleep apnea (adult) (pediatric); Z99.89 - Dependence on o ther enabling machines and devices Status: Acute Assessment and Plan: * Currently on the ventilator. Subjective Date/time seen: 12/01/19 17:09 63-year-old female with history of diabetes diabetic, deep ulceration,wound status post right BKA presented emergency department with shortness of presumably exacerbation of CHF is seen cardia
--- NOTE | 2019-12-01 17:09 | PM.IMPN ---
Progress Note: A&P Assessment and Plan (1) Shock: Code(s): R57.9 - Shock, unspecified Status: Acute Assessment and Plan: Etiology not entirely clear but would consider septic shock with possible source to include left foot wound, pneumonia, or even COVID-19. Covid is negative, bc and uc are negative pt is on iv vanc and imipenem cultures appear nl (2) Acute respiratory failure with hypoxia and hypercapnia: Code(s): J96.01 - Acute respiratory failure with hypoxia; J96.02 - Acute respiratory failure with hypercapnia Status: Acute Assessment and Plan: Multifactorial in etiology to include sleep apnea. Congestive heart failure and possible underlying pneumonia. Intubated failed BIPAP theraphy 12/01/19 17:09 63-year-old female with history of diabetes diabetic, deep ulceration,wound status post right BKA presented emergency department with shortness of presumably exacerbation of CHF is seen cardiac echo was not able to determine etiology due to morbid obesity, patient is being diuresed, on vent, patient had elevated LFT seen by GI suspect most likely secondary to morbid obesity and fatty liver, (3) Elevated troponin: Code(s): R79.89 - Other specified abnormal findings of blood chemistry Status: Acute Assessment and Plan: Secondary to CHF (4) Acute on chronic combined systolic (congestive) and diastolic (congestive) heart failure: Code(s): I50.43 - Acute on chronic combined systolic (congestive) and diastolic (congestive) heart failure Status: Acute Assessment and Plan: coming off levophed now on iv lasix bid (5) Paroxysmal atrial fibrillation: Code(s): I48.0 - Paroxysmal atrial fibrillation Status: Acute Assessment and Plan: Rate controlled atrial fibrillation on telemetry She is on apixaban for stroke prophylaxis. and ASA (6) Renal failure: Code(s): N19 - Unspecified kidney failure Status: Acute Assessment and Plan: Creat is NL now King catheter to monitor strict I/O. (7) Hypertension: Code(s): I10 - Essential (primary) hypertension Status: Acute Assessment and Plan: Lisinopril and metoprolol are currently on hold.weaning off levophed (8) Ulcer of left medial lower extremity with fat layer exposed: Code(s): L97.822 - Non-pressure chronic ulcer of other part of left lower leg with fat layer exposed Status: Acute Assessment and Plan: Wound cultures will be obtained. wound care on board (9) Obstructive sleep apnea on CPAP: Code(s): G47.33 - Obstructive sleep apnea (adult) (pediatric); Z99.89 - Dependence on other enabling machines and devices Status: Acute Assessment and Plan: Currently on the ventilator. Subjective Date/time seen: 12/01/19 17:09 63-year-old female with history of diabetes diabetic, deep ulceration,wound status post right BKA presented emergency department with shortness of presumably exacerbation of CHF is seen cardiac echo was not able to determine etiology due to morbid obesity, patient is being diuresed, on vent, patient had elevated LFT seen by GI suspect most likely secondary to morbid obesity and fatty liver, Review of Systems Review of Systems: All systems reviewed & are unremarkable except as noted in HPI and below Exam Narrative: Exam Narrative: morbidly obese on vent Const: General: comfortable and no acute distress [place]
[2019-12-01 18:02] LABS: Glucose Point of Care 136 (65-105)
[2019-12-01 23:10] LABS: Glucose Point of Care 101 (65-105)
[2019-12-02] VITALS (24 sets, daily range): BP systolic 88–110; BP diastolic 52–77; PULSE 67–99; RESP 16–22; TEMP 37.3–37.6; O2SAT 92–99
[2019-12-02 04:21] LABS: Hematocrit 41.6 % (37.0-47.0); Hemoglobin 12.8 g/dL (12.0-15.0); Mean Corpuscular HGB Conc 30.8 g/dl (32-36); Mean Corpuscular Hemoglobin 27.7 pg (26-34); Platelet Count Result 189 k/mm3 (150-375); Red Blood Count 4.62 M/mm3 (4.2-5.4); White Blood Count 8.1 K/mm3 (4.5-10.0)
[2019-12-02 04:24] LABS: Alveolar/Arterial O2 Gradient 238.8 mmHg; Base Excess ABG 4.5 mEq/l (+/-2.0); Carboxyhemoglobin 1.2 % THb (0-2.0); Fractional Inspired Oxygen 50 %; HCO3 ABG 29.1 mEq/l (22.0-26.0); Methemoglobin ABG 0.5 %THb (0-1.5); Oxygen Content ABG 17.9 %vol (16.0-22.0); Oxygen Saturation ABG 94.5 % (95.0-100.0); Oxyhemoglobin 91.7 % THb (90.0-100.0); PCO2 ABG 43.2 mmHg (35.0-45.0); PO2 ABG 69.1 mmHg (80.0-100.0); PO2 FiO2 Ratio Arterial Blood 1.38 %; Reduced Hemoglobin 6.6 %THb (0-5.0); Total Hemoglobin 13.9 g/dL (12.0-18.0); pH ABG 7.447 (7.350-7.450)
[2019-12-02 04:27] LABS: Arterial Blood Gas Vent Mode CMV; Arterial Blood Gas Ventilator rate 22 /MIN; Device VENTILATOR; Modified Allen's Test Pass; Site Drawn LEFT RADIAL
[2019-12-02 04:28] LABS: Arterial Blood Gas PEEP 10 cmH2O; Arterial Blood Gas Tidal Volume 450 ml
[2019-12-02 04:39] LABS: Alanine Aminotransferase 26 U/L (4-35); Albumin Level 3.3 g/dL (3.5-5.1); Alkaline Phosphatase 77 U/L (38-126); Aspartate Amino Transferase 95 U/L (14-36); Bilirubin,Total 2.1 mg/dL (0.2-1.3); Blood Urea Nitrogen 24 mg/dL (7-17); Calcium 8.3 mg/dL (8.4-10.2); Carbon Dioxide 36 mmol/L (22-30); Chloride 94 mmol/L (98-107); Estimated CRCL calculation 120 ml/min; Estimated Glomerular Filt Rate > 60; Glucose 98 mg/dL (65-105); Phosphorus 3.5 mg/dL (2.5-4.5); Sodium 136 mmol/L (137-145)
[2019-12-02] MEDS: CENTRAL LINE FLUSH 10 ML IV PUSH ×3 (04:55→22:49)
--- NOTE | 2019-12-02 07:26 | WPDGIPROGNO ---
Progress Note: A&P Additional Plan patient remains on the ventilator. Sedated unable to give history. Physical exam reveals patient to be on vent. Vital signs stable. No longer on pressors. Abdomen is quite obese. No organomegaly able to be appreciated. No masses evident. Labs reveal total bilirubin 2.1. Direct bilirubin 0, indirect bilirubin 1.3, AST 95, ALT 26, alk-phos 77. Impression elevated LFTs. Very easily related to her obesity. Fatty liver suspected. Additional labs in progress to exclude other conditions. May be related to sepsis in her clinical condition. Would recommend following conservatively at this time Subjective Date/time seen: 12/02/19 07:26 Objective Data Vital Signs Vital Signs: Vital Signs - 24 hr 12/01/19 08:00 12/01/19 08:06 12/01/19 10:00 Temperature Pulse Rate 92 92 93 Respiratory Rate 24 H 24 H Blood Pressure Pulse Oximetry 92 12/01/19 11:06 12/01/19 12:00 12/01/19 14:00 Temperature 99.2 F Pulse Rate 95 92 86 Respiratory Rate 24 H 22 H Blood Pressure 104/64 98/58 L Pulse Oximetry 93 94 92 12/01/19 14:16 12/01/19 16:00 12/01/19 17:27 Temperature 99.2 F Pulse Rate 87 88 88 Respiratory Rate 22 H Blood Pressure 101/71 Pulse Oximetry 93 93 92 12/01/19 18:00 12/01/19 20:00 12/01/19 20:45 Temperature 99.4 F Pulse Rate 85 81 82 Respiratory Rate 22 H 24 H Blood Pressure 86/64 L 94/76 L Pulse Oximetry 93 94 94 12/01/19 20:53 12/01/19 21:13 12/01/19 22:00 Temperature Pulse Rate 94 94 89 Respiratory Rate 24 H 24 H 22 H Blood Pressure 89/68 L Pulse Oximetry 100 12/01/19 23:13 12/02/19 00:00 12/02/19 00:57 Temperature 99.5 F Pulse Rate 83 78 89 Respiratory Rate 20 22 H Blood Pressure 88/74 L Pulse Oximetry 93 93 12/02/19 02:00 12/02/19 02:02 12/02/19 04:00 Temperature 99.3 F 99.1 F Pulse Rate 67 79 77 Respiratory Rate 20 20 Blood Pressure 101/69 97/52 L Pulse Oximetry 94 92 99 12/02/19 05:02 12/02/19 05:58 12/02/19 05:59 Temperature 99.5 F Pulse Rate 78 79 99 Respiratory Rate 20 Blood Pressure 97/63 L Pulse Oximetry 94 99 12/02/19 06:06 Temperature Pulse Rate 99 Respiratory Rate 18 Blood Pressure Pulse Oximetry Intake/Output Intake/Output: Intake & Output 11/29/19 11/30/19 12/01/19 12/02/19 23:59 23:59 23:59 23:59 Intake Total 3440 3307 1313 543 Output Total 1575 1975 2900 1150 Balance 1865 0946 -5698 -591 Meds/Results Medications: Active Medications Generic Name Dose Route Start Last Admin Trade Name Freq PRN Reason Stop Dose Admin Apixaban 5 mg 11/27/19 09:00 12/01/19 17:07 Eliquis PO 5 mg BID C[facility]SEA Administration Aspirin 325 mg 11/28/19 08:00 12/01/19 11:01 Aspirin PO 325 mg DAILY@0800 [facility] Administration Dextrose 12.5 gm 11/27/19 09:55 Dextrose 50% Syringe IV PUSH PRN PRN Hypoglycemia Protocol Famotidine 20 mg 11/27/19 09:00 12/01/19 21:06 Pepcid PO 20 mg Q12HR [facility] Administration Furosemide 80 mg 12/01/19 09:00 12/01/19 21:06 Lasix Inj IV PUSH 80 mg Q12HR [facility] Administration Glucagon 1 mg 11/27/19 09:55 Glucagon For Inj IM PRN PRN Hypoglycemia Protocol Glucose 15 gm 11/27/19 09:55 Glutose 15 PO PRN PRN Hypoglycemia Protocol Midazolam HCl 50 mg in 100 mls @ 6 mls/hr 11/26/19 21:50 12/02/19 06:05 Versed 50 Mg/D5w 100 Ml IV CONT 3 mg/hr .[id number] [facility] 6 mls/hr Titration Protocol Fentanyl Citrate 2,500 mcg in 250 mls @ 7.5 mls/hr 11/26/19 21:50 12/02/19 06:06 Fentanyl 2,500 Mcg/Ns 250 Ml IV CONT 75 mcg/hr .[id number] [facility] 7.5 mls/hr Titration Protocol 75 MCG/HR Norepinephrine Bitartrate 8 mg in 250 mls @ 0 mls/hr 11/26/19 21:50 11/28/19 21:30 Levophed 8 Mg/D5w 250 Ml IV CONT 0 mcg/min .Q0M [facility] 0 mls/hr Titration Protocol Imipenem/Cilastatin Sodium 500 mg in 100 mls @ 300 mls/hr 11/26
[2019-12-02] MEDS: SILVERGEL (ELTA) 45 ML 1 APPLIC TOPICAL (09:15)
[2019-12-02] MEDS: ASPIRIN 325 MG TABLET PO (09:15)
[2019-12-02] MEDS: APIXABAN 5 MG TABLET PO ×2 (09:15→19:52)
[2019-12-02] MEDS: TOLNAFTATE 1% POWDER 45 GM BTL 1 APPLIC TOPICAL ×2 (09:15→19:54)
[2019-12-02] MEDS: FAMOTIDINE 20 MG TABLET PO ×2 (09:15→19:52)
[2019-12-02] MEDS: polyethylene glycoL 3350 17 GM POWD.PACK PO (09:16)
[2019-12-02] MEDS: FUROSEMIDE INJ 100 MG/10 ML VIAL 80 MG IV PUSH ×2 (09:16→19:52)
[2019-12-02 09:36] LABS: NT Pro B Type Natriuretic Pept 1920 PG/ML (5-100)
--- NOTE | 2019-12-02 10:56 | PCDIET ---
Nutrition Follow-Up Complete: Nutrition Diagnosis: Inadequate oral intake related to oral intubation as evidenced by NPO status. Nutrition Goal: Patient to meet estimated nutritional needs. Goal in progress. Patient previously tolerating Vital 1.2 at 60mL/hr. Tube feedings held at midnight, as patient had GI consult earlier today and may have AMANDA later today. Tube feedings to resume once testing/procedures complete. Per GI, elevated LFTs may be related to obesity. Last recorded weight is 198.6 kg which is down from last review. -I/O. Bowel Motility: No documented BM. Miralax added 12/01/19. Labs Reviewed: Na (136), Alb (3.3) Meds Noted: Pepcid, Primaxin, Fentanyl, Novolog, Lasix, Versed, Levophed, Miralax Additional Notes: Corrected calcium WNL. Left ankle and calf ulcers documented. Will continue to monitor with same goal. Nutrition Monitoring and Evaluation: Follow up every Sunday/Sunday.
--- NOTE | 2019-12-02 13:08 | WPDMODSED ---
Moderate Sedation Note-Pt Data Patient Data Diagnosis: 63-year-old female who likely has heart failure. Unfortunately she has poor echocardiographic windows due to her body habitus and very little information was gathered by her transthoracic echo. Андрей is therefore requested for further LV size function and valvular anatomy evaluation Present Complaint: as detailed above Procedure to be performed/Plan: multiplanar transesophageal echocardiography with color flow and pulse wave Doppler Allergies Allergy/AdvReac Type Severity Reaction Status Date / Time azithromycin Allergy Unknown Rash Verified 11/26/19 14:42 Penicillins Allergy Unknown Rash Verified 11/26/19 14:42 Home Medications Medication Instructions Recorded Confirmed Type apixaban 5 mg tablet 5 mg PO BID #180 tablet 06/12/19 11/26/19 Rx furosemide 40 mg tablet 40 mg PO BID #180 tablet 06/12/19 11/26/19 Rx lisinopril 5 mg tablet 5 mg PO DAILY #90 tablet 06/12/19 11/26/19 Rx metoprolol tartrate 25 mg tablet 25 mg PO Q12H #180 tablet 10/13/19 11/26/19 Rx Current Medications: Active Medications Apixaban (Eliquis) 5 mg PO BID [facility] Last Admin: 12/02/19 09:15 Dose: 5 mg Documented by: Aspirin (Aspirin) 325 mg PO DAILY@0800 [facility] Last Admin: 12/02/19 09:15 Dose: 325 mg Documented by: Dextrose (Dextrose 50% Syringe) 12.5 gm IV PUSH PRN PRN; Protocol PRN Reason: Hypoglycemia Famotidine (Pepcid) 20 mg PO Q12HR [facility] Last Admin: 12/02/19 09:15 Dose: 20 mg Documented by: Furosemide (Lasix Inj) 80 mg IV PUSH Q12HR [facility] Last Admin: 12/02/19 09:16 Dose: 80 mg Documented by: Glucagon (Glucagon For Inj) 1 mg IM PRN PRN; Protocol PRN Reason: Hypoglycemia Glucose (Glutose 15) 15 gm PO PRN PRN; Protocol PRN Reason: Hypoglycemia Midazolam HCl (Versed 50 Mg/D5w 100 Ml) 50 mg in 100 mls @ 6 mls/hr IV CONT .[id number] [facility]; Protocol Last Admin: 12/02/19 08:21 Dose: 3 mg/hr, 6 mls/hr Documented by: Fentanyl Citrate (Fentanyl 2,500 Mcg/Ns 250 Ml) 2,500 mcg in 250 mls @ 7.5 mls/hr IV CONT .[id number] [facility]; Protocol Last Titration: 12/02/19 06:06 Dose: 75 mcg/hr, 7.5 mls/hr Documented by: Norepinephrine Bitartrate (Levophed 8 Mg/D5w 250 Ml) 8 mg in 250 mls @ 0 mls/hr IV CONT .Q0M [facility]; Protocol Last Titration: 11/28/19 21:30 Dose: 0 mcg/min, 0 mls/hr Documented by: Imipenem/Cilastatin Sodium (Primaxin 500 Mg/D5w 100 Ml) 500 mg in 100 mls @ 300 mls/hr IVPB Q8HR [facility] Last Infusion: 12/02/19 06:06 Dose: Infused Documented by: Dextrose (Dextrose 5% 1,000 Ml) 1,000 mls @ 100 mls/hr IVPB PRN PRN; Protocol PRN Reason: Hypoglycemia Insulin Aspart (Novolog) 3 - 6 units SUB-Q Q6HR [facility]; Protocol Last Admin: 12/02/19 12:43 Dose: Not Given Documented by: Multi-Ingred Cream/Lotion/Oil/Oint (Lubrifresh Pm Eye Ointment) 1 applic EACH EYE Q12HR [facility] Last Admin: 12/02/19 09:16 Dose: 1 applic Documented by: Polyethylene Glycol (Miralax) 17 gm PO QAM [facility] Last Admin: 12/02/19 09:16 Dose: 17 gm Documented by: Silver Nitrate (Silvergel) 1 applic TOPICAL DAILY [facility] Last Admin: 12/02/19 09:15 Dose: 1 applic Documented by: Sodium Chloride (Central Line Flush) 10 ml IV PUSH Q8HR [facility] Last Admin: 12/02/19 04:55 Dose: 10 ml Documented by: Sodium Chloride (Central Line Flush) 20 ml IV PUSH PRN PRN PRN Reason: after blood draws Tolnaftate (Tolnaftate 1% Powder) 1 applic TOPICAL Q12HR [facility] Last Admin: 12/02/19 09:15 Dose: 1 applic Documented by: Sedation/Anesthesia: No previous sedation/anesthesia problems (including family history). [facility] Past Medical History Medical History Anxiety Asthma Chronic anemia Chronic venous stasis Combined systolic and diastolic congestive heart failure Echocardiogram in June 2018 demonstrated mild to moderate global left ventricular systolic dysfunction with an ingestion fraction estimated 47%, pseudonormal diastolic dysfunction grade 2, mild concentric LVH, mild enlargeme
--- NOTE | 2019-12-02 13:30 | P.PCNTEE_ITS ---
AMANDA TransEsophageal Echocardiogram Date of procedure: 12/02/19 Procedure Type: multiplanar transesophageal echocardiography with continuous- wave and color flow Doppler Diagnosis: heart failure and poor diagnostic imaging via transthoracic echo Indications: as above Image Quality: good Findings: informed consent was verbally agreed upon by patient's aunt Afia. Consent was obtained after discussing with Afia. Risks discussed included esophageal rupture perforation, adverse reaction to anesthesia, bleeding, pain, infection, sore throat Patient was already intubated and sedated. No additional medications were given Complications: None Blood loss: None Respiratory therapy did assist with deflating the cough. The echo scope was advanced into place without difficulty. Multiplanar imaging was then performed. Findings: Ovkk-cf-[id number] left ventricular dilatation. Ejection fraction roughly estimated at around 45%. Right ventricle was not well visualized. There was right atrial and left atrial enlargement. Atrial septum is intact without color flow evidence of shunting. No pericardial effusion. The mitral valve appears normal with [id number] mitral regurgitation. Tricuspid valve is normal with mild tricuspid regurgitation. Pulmonary artery pressures are likely in the moderate category. 31+ RAP mmHg. Estimated RAP is around 15 mm of mercury which will put her pulmonary pressures at around 45-50 mmHg. Mild pulmonic insufficiency and pulmonary valves grossly normal. Aortic valve is trileaflet with trace to mild aortic insufficiency. aortic root is normal Conclusions: 1. Sjid-wu-punoxrkn left ventricular dilatation with mild LV dysfunction 2. Moderate pulmonary hypertension 3. Pecp-td-flhqailr mitral regurgitation, mild tricuspid regurgitation 4. Biatrial enlargement
[2019-12-02 14:08] LABS: Procalcitonin 0.17 ng/mL (<0.10)
--- NOTE | 2019-12-02 14:41 | WPDINTPN ---
Progress Note: A&P Assessment and Plan (1) Shock: Code(s): R57.9 - Shock, unspecified Status: Acute Assessment and Plan: RESOLVED. Patient off vasopressors Septic versus cardiogenic versus combination Small IV fluid bolus given on admission due to suggestion of pulmonary edema on chest x-ray Blood, urine, wound cultures were negative antibiotics were discontinued on 12/01/2019 echocardiogram performed 11/28/2019 Summary 1. Despite definity contrast injection visualization is exceedingly difficult presumably because of obesity and mechanical ventilation. 2. Not possible to reliably reported ejection fraction based on this poor-quality exam. 3. Right atrial chamber dimension is moderately enlarged. 4. There is mild aortic valve sclerosis. 5. Aortic valve leaflet separation is well maintained the valve does not appear to be stenotic. AMANDA done on 12/02/2019 showed mild to moderate LV dilatation, EF of 45%, biatrial enlargement, kzhp-lj-kmigrnug mitral valve regurg PA pressures around 45-50 mmHg (2) Acute respiratory failure with hypoxia and hypercapnia: Code(s): J96.01 - Acute respiratory failure with hypoxia; J96.02 - Acute respiratory failure with hypercapnia Status: Acute Assessment and Plan: Acute Respiratory failure secondary to CHF, COPD, obesity hypoventilation, possible pneumonia Continue full mechanical ventilation support to prevent hypoxemia/hypercarbia and end organ damage. ABG and PCXR reviewed, increased peep and decrease FiO2 Low tidal volume ventilation strategy to prevent volutrauma Bronchodilators patient diuresing well with high-dose of diuretic, continue aggressive diuresis with net fluid negative which least 1-1.5 L COVID-19 ruled out. SARS-CoV-2 PCR was negative Patient OFF Airborne, Droplet and Contact Isolation . (3) Elevated troponin: Code(s): R79.89 - Other specified abnormal findings of blood chemistry Status: Acute Assessment and Plan: Small increase likely secondary to respiratory failure shock and acute kidney injury Aspirin and Eliquis (4) Acute on chronic combined systolic (congestive) and diastolic (congestive) heart failure: Code(s): I50.43 - Acute on chronic combined systolic (congestive) and diastolic (congestive) heart failure Status: Acute Assessment and Plan: Echo as above continue diuresis, - was patient is more hemodynamically stable will start MERCEDES-inhibitor and metoprolol which were patient's home meds (5) Paroxysmal atrial fibrillation: Code(s): I48.0 - Paroxysmal atrial fibrillation Status: Acute Assessment and Plan: Currently rate controlled without any intervention Aspirin and Eliquis (6) Renal failure: Code(s): N19 - Unspecified kidney failure Status: Acute Assessment and Plan: Acute kidney injury likely multifactorial Small IV fluid bolus given on admission Creatinine in normal range this morning Continue diuresis Monitor urine output electrolytes and creatinine King in place for accurate urine output Normal CK level (7) Ulcer of left medial lower extremity with fat layer exposed: Code(s): L97.822 - Non-pressure chronic ulcer of other part of left lower leg with fat layer exposed Status: Acute Assessment and Plan: XR IMPRESSION: 1. Deep ulceration and/or soft tissue debridement at the medial aspect of the left hindfoot without evident underlying osteomyelitis or other acute osseous abnormality. 2. Chronic appearing erosion at the medial head of the first metatarsal with classic location and appearance for gout. 3. Mild polyarticular osteoarthritis in the mid and forefoot. 4. Benign-appearing periosteal reaction along the medial side of the distal tibia with overlying dystrophic soft tissue calcifications which can be seen in the setting of chronic venous stasis. Empiric vancomycin and Primaxin Wound care following the patient Low
[2019-12-02 14:54] LABS: Glucose Point of Care 92 (65-105)
--- NOTE | 2019-12-02 17:08 | PM.IMPN ---
Progress Note: A&P Assessment and Plan (1) Shock: Code(s): R57.9 - Shock, unspecified Status: Acute Assessment and Plan: Etiology not entirely clear but would consider septic shock with possible source to include left foot wound, pneumonia, or even COVID-19. Covid is negative, bc and uc are negative pt is on iv vanc and imipenem cultures appear nl (2) Acute respiratory failure with hypoxia and hypercapnia: Code(s): J96.01 - Acute respiratory failure with hypoxia; J96.02 - Acute respiratory failure with hypercapnia Status: Acute Assessment and Plan: Multifactorial in etiology to include sleep apnea. Congestive heart failure and possible underlying pneumonia. Intubated failed BIPAP theraphy 12/02/19 17:08 63-year-old female with history of diabetes diabetic, deep ulceration,wound status post right BKA presented emergency department with shortness of presumably exacerbation of CHF is seen cardiac echo was not able to determine etiology due to morbid obesity, patient is being diuresed, on vent, patient had elevated LFT seen by GI suspect most likely secondary to morbid obesity and fatty liver,_ patient had a transthoracic cardiac echo due to body habitus was not very well visualized, today patient had AMANDA which showed patient mild dilatation of left ventricular with mild to moderate LV dysfunction with ejection fraction of 45%, moderate pulmonary hypertension, otherwise cardiac echo was normal, patient still remains intubated being diuresed. (3) Elevated troponin: Code(s): R79.89 - Other specified abnormal findings of blood chemistry Status: Acute Assessment and Plan: Secondary to CHF (4) Acute on chronic combined systolic (congestive) and diastolic (congestive) heart failure: Code(s): I50.43 - Acute on chronic combined systolic (congestive) and diastolic (congestive) heart failure Status: Acute Assessment and Plan: coming off levophed now on iv lasix bid (5) Paroxysmal atrial fibrillation: Code(s): I48.0 - Paroxysmal atrial fibrillation Status: Acute Assessment and Plan: Rate controlled atrial fibrillation on telemetry She is on apixaban for stroke prophylaxis. and ASA (6) Renal failure: Code(s): N19 - Unspecified kidney failure Status: Acute Assessment and Plan: Creat is NL now King catheter to monitor strict I/O. (7) Hypertension: Code(s): I10 - Essential (primary) hypertension Status: Acute Assessment and Plan: Lisinopril and metoprolol are currently on hold.weaning off levophed (8) Ulcer of left medial lower extremity with fat layer exposed: Code(s): L97.822 - Non-pressure chronic ulcer of other part of left lower leg with fat layer exposed Status: Acute Assessment and Plan: Wound cultures will be obtained. wound care on board (9) Obstructive sleep apnea on CPAP: Code(s): G47.33 - Obstructive sleep apnea (adult) (pediatric); Z99.89 - Dependence on other enabling machines and devices Status: Acute Assessment and Plan: Currently on the ventilator. Subjective Date/time seen: 12/02/19 17:08 63-year-old female with history of diabetes diabetic, deep ulceration,wound status post right BKA presented emergency department with shortness of presumably exacerbation of CHF is seen cardiac echo was not able to determine etiology due to morbid obesity, patient is being d
[2019-12-02 17:41] LABS: Glucose Point of Care 88 (65-105)
--- NOTE | 2019-12-02 21:29 | PM.PNPUL ---
Progress Note: A&P Assessment and Plan (1) Acute and chronic respiratory failure: Qualifiers: Respiratory failure complication: hypoxia and hypercapnia Qualified Code(s): J96.21 - Acute and chronic respiratory failure with hypoxia; J96.22 - Acute and chronic respiratory failure with hypercapnia Code(s): J96.20 - Acute and chronic respiratory failure, unspecified whether with hypoxia or hypercapnia Status: Acute (2) Hypoxemic respiratory failure, chronic: Code(s): J96.11 - Chronic respiratory failure with hypoxia Status: Acute Assessment and Plan: CHF seems to be greatest component. Exam findings, CXR results and last BNP of > 11,000. - continue aggressive diuresis - consider AMANDA while intubated to better assess EF, valves (3) Obstructive sleep apnea on CPAP: Code(s): G47.33 - Obstructive sleep apnea (adult) (pediatric); Z99.89 - Dependence on other enabling machines and devices Status: Acute (4) Morbid obesity: Code(s): E66.01 - Morbid (severe) obesity due to excess calories Status: Acute (5) Shock: Code(s): R57.9 - Shock, unspecified Status: Acute (6) Acute renal insufficiency: Code(s): N28.9 - Disorder of kidney and ureter, unspecified Status: Acute (7) Type 2 diabetes mellitus with polyneuropathy: Code(s): E11.42 - Type 2 diabetes mellitus with diabetic polyneuropathy Status: Acute (8) Status post below knee amputation of right lower extremity: Code(s): Z89.511 - Acquired absence of right leg below knee Status: Acute (9) Paroxysmal atrial fibrillation: Code(s): I48.0 - Paroxysmal atrial fibrillation Status: Acute Additional Plan When she is hemodynamically, stable off pressors for over 24 hours, has had some clearing in the chest x-ray and decreased O2 requirement, we can look at weaning trial and extubation. She is at high risk for recurrent episode. I do not know who follows the patient but she is not seen in our practice. She had a sleep study 03/07/2011 at [facility], not able to access due to problems with 404 Error - issue with EMR. There is no recent information about a more recent sleep study, although an H&P in Apr 2019 indicates that she was on BiPAP. not CPAP. Dr. Montana is her primary care doctor, and he has been managing her issues. Subjective Date/time seen: 12/02/19 21:29 Interval history: intubated on CMV 450/10/50% this morning. CXR shows bilateral pulmonary edema with bilateral pleural effusions. She's on Lasi and is negative balance from past 24 hours. TTE was poor study due to body habitus. Review of Systems Review of Systems: All systems reviewed & are unremarkable except as noted in HPI and below Exam Narrative: Exam Narrative: Drips: Norepinephrine 1 micrograms/minute Fentanyl 75 micrograms/hour Versed 4 milligrams/hour Tube feeds: Alphonse 1.2 @ 60 ml/hour Vent settings: CMV+ 50%, PEEP 10, TV 450 ml. Const: General: no acute distress (orally intubated, sedated) Eyes: General: appearance normal, both eyes and all related structures Neck: Lymphatic: lymphadenopathy not noted Resp: Auscultation: diminished lung sounds (Large body habitus) Cardio: Rhythm: abnormal rhythm irregularly irregular Skin: Lesions: lesion noted (Chronic stasis changes L lower extremity, yellow crusting, 3+ edema) Neuro: Speech: No normal speech (Sedated intubated) Extrem: Right lower extremity: lower leg (Right [id number] amputation) and ankle (dressing kerlix wrapped over left ankle ulcer ) Objective Data Vital Signs Vital Signs: Vital Signs - 24 hr 12/01/19 22:00 12/01/19 23:13 12/02/19 00:00 Temperature 37.5 C Pulse Rate 89 83 78 Respiratory Rate 22 H 20 Blood Pressure 89/68 L 88/74 L Pulse Oximetry 100 93 93 12/02/19 00:57 12/02/19 02:00 12/02/19 02:02 Temperature 37.4 C Pulse Rate 89 67 79 Respiratory Rate 22 H 20 Blood Pressure 101/69 Puls
[2019-12-03] VITALS (26 sets, daily range): BP systolic 90–113; BP diastolic 56–89; PULSE 72–128; RESP 20–22; TEMP 37.3–38.8; O2SAT 90–96
[2019-12-03 01:06] LABS: Glucose Point of Care 77 (65-105)
[2019-12-03 04:54] LABS: Base Excess ABG 8.3 mEq/l (+/-2.0); Carboxyhemoglobin 1.4 % THb (0-2.0); Fractional Inspired Oxygen 50 %; HCO3 ABG 32.8 mEq/l (22.0-26.0); Methemoglobin ABG 0.2 %THb (0-1.5); Oxygen Content ABG 20.8 %vol (16.0-22.0); Oxygen Saturation ABG 96.9 % (95.0-100.0); Oxyhemoglobin 94.8 % THb (90.0-100.0); PCO2 ABG 44.4 mmHg (35.0-45.0); PO2 ABG 83.6 mmHg (80.0-100.0); PO2 FiO2 Ratio Arterial Blood 1.67 %; Reduced Hemoglobin 3.6 %THb (0-5.0); Total Hemoglobin 15.6 g/dL (12.0-18.0); pH ABG 7.487 (7.350-7.450)
[2019-12-03 04:55] LABS: Device VENTILATOR; Modified Allen's Test Pass; Site Drawn RIGHT RADIAL
[2019-12-03 04:56] LABS: Arterial Blood Gas Pressure Support 0 cmH2O; Arterial Blood Gas Tidal Volume 450 ml; Arterial Blood Gas Vent Mode CMV; Arterial Blood Gas Ventilator rate 22 /MIN
[2019-12-03 05:13] LABS: Hematocrit 39.3 % (37.0-47.0); Hemoglobin 12.2 g/dL (12.0-15.0); Mean Corpuscular Hemoglobin 27.9 pg (26-34); Mean Corpuscular Volume 89.9 fl (80-100); Mean Platelet Volume 10.2 fl (7.4-10.4); Platelet Count Result 192 k/mm3 (150-375); Red Blood Count 4.37 M/mm3 (4.2-5.4); Red Cell Distribution Width 15.9 % (11.5-14.5); White Blood Count 8.3 K/mm3 (4.5-10.0)
[2019-12-03 05:36] LABS: Blood Urea Nitrogen 23 mg/dL (7-17); Calcium 8.4 mg/dL (8.4-10.2); Carbon Dioxide 34 mmol/L (22-30); Chloride 94 mmol/L (98-107); Estimated CRCL calculation 119 ml/min; Estimated Glomerular Filt Rate > 60; Glucose 89 mg/dL (65-105); Potassium 3.4 mmol/L (3.4-5.0); Sodium 135 mmol/L (137-145)
[2019-12-03 05:46] LABS: Arterial Blood Gas PEEP 10 cmH2O
[2019-12-03] MEDS: CENTRAL LINE FLUSH 10 ML IV PUSH ×3 (06:40→22:59)
[2019-12-03] MEDS: SILVERGEL (ELTA) 45 ML 1 APPLIC TOPICAL (08:17)
[2019-12-03] MEDS: TOLNAFTATE 1% POWDER 45 GM BTL 1 APPLIC TOPICAL ×2 (08:17→21:05)
[2019-12-03] MEDS: ASPIRIN 81 MG CHEWABLE TABLET PO (08:17)
[2019-12-03] MEDS: polyethylene glycoL 3350 17 GM POWD.PACK PO (08:18)
[2019-12-03] MEDS: APIXABAN 5 MG TABLET PO ×2 (08:18→16:50)
[2019-12-03] MEDS: FUROSEMIDE INJ 100 MG/10 ML VIAL 80 MG IV PUSH ×2 (08:18→21:05)
[2019-12-03] MEDS: FAMOTIDINE 20 MG TABLET PO ×2 (08:18→21:05)
--- NOTE | 2019-12-03 10:48 | PM.PNCARD ---
Progress Note: A&P Assessment and Plan (1) Shock: Code(s): R57.9 - Shock, unspecified Status: Acute Assessment and Plan: Shock, Probable septic shock requiring intubation, Levophed weaned off yesterday. Management per skilled nursing professional. (2) Acute on chronic combined systolic (congestive) and diastolic (congestive) heart failure: Code(s): I50.43 - Acute on chronic combined systolic (congestive) and diastolic (congestive) heart failure Status: Acute Assessment and Plan: Acute on chronic systolic and diastolic heart failure. Echocardiogram 06/18/2018 revealed that the left ventricle was not well visualized even with definity contrast. Mild concentric LVH. Mild enlargement of the LV cavity. Mild to moderate global LV systolic dysfunction. Best estimate of EF was by M-mode of 47 %. Mild enlargement of the right ventricle. Mild enlargement of the left and right atrium. Moderate pulmonary hypertension estimated in the RVSP at 65 mm Hg. Mild pulmonic regurgitation. Dilated inferior vena cava with poor inspiratory collapse consistent with elevated right atrial pressures. No significant change when compared to the echo of 2015. Echocardiogram 11/28/2019 was not helpful even with definity. The chambers were not well visualized. Echocardiogram was very difficult due to positioning, her body habitus as well as the ventilator. When discussed with Boris Cervantes [facility] even with extreme positioning on to her left side due to her body habitus still may not be able to get a good acoustic window. Limited information may be obtained from a transesophageal echocardiogram but will stop her tube feedings at midnight and assess further tomorrow. Diuresing at this point. Will replace her potassium 40 mEq IV x1 (3) Persistent atrial fibrillation: Code(s): I48.19 - Other persistent atrial fibrillation Status: Acute Assessment and Plan: History of persistent atrial fibrillation, transiently with a rapid ventricular response on admission, which improved with only supportive therapy. Continue anticoagulation with Eliquis. Have not resumed her home metoprolol because of her hypotension (4) Elevated troponin: Code(s): R79.89 - Other specified abnormal findings of blood chemistry Status: Acute Assessment and Plan: Very mildly elevated troponin, secondary to CHF, kidney disease, and physiologic stress. No indication of ACS. (5) Acute respiratory failure with hypoxia and hypercapnia: Code(s): J96.01 - Acute respiratory failure with hypoxia; J96.02 - Acute respiratory failure with hypercapnia Status: Acute Assessment and Plan: Remains intubated. 50% FiO2 at this time. Diuresing as above. COVID negative. Management per skilled nursing professional. Subjective Date/time seen: 12/03/19 10:48 Interval history: Follow-up for: multiple medical problems including obstructive sleep apnea, combined systolic and diastolic congestive heart failure, pulmonary hypertension, paroxysmal atrial fibrillation, hypertension, morbid obesity and peripheral vascular that presented to the hospital for shortness of breath and chest pain. She has been intubated since 11/26/2019. Date of service: 12/03/2019: She remains intubated but withdraws to pain. AMANDA performed yesterday showing mild LV dysfunction. Moderate pulmonary hypertension. AFib remained rate control. She is diuresing. Review of Systems Review of Systems: ROS unobtainable: Yes unobtainable due to endotracheal tube and unobtainable due to mental status Constitutional: Constitutional: Reports chills (No fever) and Reports fatigue (Sedated) ENT: Denies epistaxis Cardiovascular: Cardiovascular: Reports pedal edema and Denies palpitations (Heart rate was
--- NOTE | 2019-12-03 11:04 | PCDIET ---
Nutrition Follow-Up Complete: Nutrition Diagnosis: Inadequate oral intake related to oral intubation as evidenced by NPO status. Nutrition Goal: Patient to meet estimated nutritional needs. Goal in progress. Vital 1.2 resumed at 60mL/hr and patient tolerating well without reported issues. Last recorded weight is 196.4 kg which is decreased from last review. Bowel Motility: No documented BM. Labs Reviewed: BUN (23), Na (135) Meds Noted: Pepcid, Fentanyl, Lasix, Levophed, Miralax, Primaxin, Novolog, Versed Additional Notes: LLE ulcers with daily dressing changes. Recommend continuing present tube feeding. Nutrition Monitoring and Evaluation: Follow up every Sunday/Sunday. Follow daily in ICU rounds.
[2019-12-03 11:23] LABS: Glucose Point of Care 111 (65-105)
--- NOTE | 2019-12-03 12:05 | WPDGIPROGNO ---
Progress Note: A&P Additional Plan Patient remains sedated on the ventilator. Unable to give any additional history. Physical exam unchanged. Patient intubated in the ICU. Nutrition via NG tube. Abdomen is obese. No palpable organomegaly. Labs reveal total bilirubin 2.1, primarily indirect fraction. Direct bilirubin 0, AST 95 has improved. ALT 26 normal. Impression elevated LFTs. Appear nonspecific at this time. May be related to comorbid diseases. Fatty liver suspected. Plan is to follow LFTs conservatively at this time. No spec Subjective Date/time seen: 12/03/19 12:05 Objective Data Vital Signs Vital Signs: Vital Signs - 24 hr 12/02/19 14:00 12/02/19 16:00 12/02/19 17:30 Temperature 99.3 F 99.6 F Pulse Rate 76 71 78 Respiratory Rate 22 H 22 H Blood Pressure 88/71 L 97/70 L Pulse Oximetry 95 94 95 12/02/19 18:00 12/02/19 19:50 12/02/19 20:00 Temperature 99.6 F 99.4 F Pulse Rate 89 79 80 Respiratory Rate 22 H 22 H Blood Pressure 109/66 103/77 Pulse Oximetry 92 94 93 12/02/19 21:23 12/02/19 22:00 12/02/19 22:54 Temperature Pulse Rate 88 76 81 Respiratory Rate 22 H 22 H Blood Pressure 110/77 Pulse Oximetry 93 93 12/03/19 00:00 12/03/19 02:00 12/03/19 04:00 Temperature 99.6 F 99.2 F Pulse Rate 86 76 78 Respiratory Rate 22 H 22 H 22 H Blood Pressure 111/89 112/81 113/77 Pulse Oximetry 93 95 96 12/03/19 04:30 12/03/19 05:15 12/03/19 06:00 Temperature Pulse Rate 72 85 80 Respiratory Rate 22 H 22 H Blood Pressure 94/70 L Pulse Oximetry 96 96 12/03/19 06:56 12/03/19 08:00 12/03/19 08:40 Temperature 99.5 F Pulse Rate 81 81 76 Respiratory Rate 22 H 20 Blood Pressure 100/66 Pulse Oximetry 94 96 12/03/19 09:00 12/03/19 10:00 12/03/19 11:51 Temperature 99.6 F Pulse Rate 84 88 92 Respiratory Rate 22 H 22 H Blood Pressure 98/61 L Pulse Oximetry 95 94 Intake/Output Intake/Output: Intake & Output 11/30/19 12/01/19 12/02/19 12/03/19 23:59 23:59 23:59 23:59 Intake Total 3307 1313 1839 403 Output Total 1975 2900 2850 1900 Balance 5494 -9640 -6761 -0497 Meds/Results Medications: Active Medications Generic Name Dose Route Start Last Admin Trade Name Freq PRN Reason Stop Dose Admin Apixaban 5 mg 11/27/19 09:00 12/03/19 08:18 Eliquis PO 5 mg BID CHELSEA Administration Aspirin 81 mg 12/03/19 08:00 12/03/19 08:17 Aspirin Chewable PO 81 mg DAILY@0800 CHELSEA Administration Dextrose 12.5 gm 11/27/19 09:55 Dextrose 50% Syringe IV PUSH PRN PRN Hypoglycemia Protocol Famotidine 20 mg 11/27/19 09:00 12/03/19 08:18 Pepcid PO 20 mg Q12HR CHELSEA Administration Furosemide 80 mg 12/01/19 09:00 12/03/19 08:18 Lasix Inj IV PUSH 80 mg Q12HR CHELSEA Administration Glucagon 1 mg 11/27/19 09:55 Glucagon For Inj IM PRN PRN Hypoglycemia Protocol Glucose 15 gm 11/27/19 09:55 Glutose 15 PO PRN PRN Hypoglycemia Protocol Midazolam HCl 50 mg in 100 mls @ 6 mls/hr 11/26/19 21:50 12/03/19 09:00 Versed 50 Mg/D5w 100 Ml IV CONT 3 mg/hr .[id number] CHELSEA 6 mls/hr Titration Protocol 3 MG/HR Fentanyl Citrate 2,500 mcg in 250 mls @ 10 mls/hr 11/26/19 21:50 12/03/19 09:00 Fentanyl 2,500 Mcg/Ns 250 Ml IV CONT 100 mcg/hr .Q25H CHELSEA 10 mls/hr Titration Protocol 100 MCG/HR Norepinephrine Bitartrate 8 mg in 250 mls @ 0 mls/hr 11/26/19 21:50 11/28/19 21:30 Levophed 8 Mg/D5w 250 Ml IV CONT 0 mcg/min .Q0M CHELSEA 0 mls/hr Titration Protocol Imipenem/Cilastatin Sodium 500 mg in 100 mls @ 300 mls/hr 11/27/19 06:00 12/03/19 07:04 Primaxin 500 Mg/D5w 100 Ml IVPB Infused Q8HR CHELSEA Infusion Dextrose 1,000 mls @ 100 mls/hr 11/27/19 09:55 Dextrose 5% 1,000 Ml IVPB PRN PRN Hypoglycemia Protocol Potassium Chloride 100 mls @ 25 mls/hr 12/03/19 10:47 12/03/19 11:23 Kcl 40 Meq/W
--- NOTE | 2019-12-03 15:09 | WPDINTPN ---
Progress Note: A&P Assessment and Plan (1) Acute respiratory failure with hypoxia and hypercapnia: Code(s): J96.01 - Acute respiratory failure with hypoxia; J96.02 - Acute respiratory failure with hypercapnia Status: Acute Assessment and Plan: Acute Respiratory failure secondary to CHF, COPD, obesity hypoventilation, possible pneumonia Continue full mechanical ventilation support to prevent hypoxemia/hypercarbia and end organ damage. ABG and PCXR reviewed, decrease FiO2 as tolerated Low tidal volume ventilation strategy to prevent volutrauma Bronchodilators patient diuresing well with high-dose of diuretic, continue aggressive diuresis with net fluid negative which least 1-1.5 L COVID-19 ruled out. SARS-CoV-2 PCR was negative Patient OFF Airborne, Droplet and Contact Isolation . (2) Shock: Code(s): R57.9 - Shock, unspecified Status: Acute Assessment and Plan: RESOLVED. Patient off vasopressors Septic versus cardiogenic versus combination Small IV fluid bolus given on admission due to suggestion of pulmonary edema on chest x-ray Blood, urine, wound cultures were negative antibiotics were discontinued on 12/01/2019 echocardiogram performed 11/28/2019 Summary 1. Despite definity contrast injection visualization is exceedingly difficult presumably because of obesity and mechanical ventilation. 2. Not possible to reliably reported ejection fraction based on this poor-quality exam. 3. Right atrial chamber dimension is moderately enlarged. 4. There is mild aortic valve sclerosis. 5. Aortic valve leaflet separation is well maintained the valve does not appear to be stenotic. AMANDA done on 12/02/2019 showed mild to moderate LV dilatation, EF of 45%, biatrial enlargement, [id number] mitral valve regurg PA pressures around 45-50 mmHg (3) Elevated troponin: Code(s): R79.89 - Other specified abnormal findings of blood chemistry Status: Acute Assessment and Plan: Small increase likely secondary to respiratory failure shock and acute kidney injury Aspirin and Eliquis (4) Acute on chronic combined systolic (congestive) and diastolic (congestive) heart failure: Code(s): I50.43 - Acute on chronic combined systolic (congestive) and diastolic (congestive) heart failure Status: Acute Assessment and Plan: Echo as above continue diuresis, - was patient is more hemodynamically stable will start MERCEDES-inhibitor and metoprolol which were patient's home meds (5) Paroxysmal atrial fibrillation: Code(s): I48.0 - Paroxysmal atrial fibrillation Status: Acute Assessment and Plan: Currently rate controlled without any intervention Aspirin and Eliquis (6) Renal failure: Code(s): N19 - Unspecified kidney failure Status: Acute Assessment and Plan: Acute kidney injury likely multifactorial Small IV fluid bolus given on admission Creatinine in normal range this morning Continue diuresis Monitor urine output electrolytes and creatinine King in place for accurate urine output Normal CK level (7) Ulcer of left medial lower extremity with fat layer exposed: Code(s): L97.822 - Non-pressure chronic ulcer of other part of left lower leg with fat layer exposed Status: Acute Assessment and Plan: XR IMPRESSION: 1. Deep ulceration and/or soft tissue debridement at the medial aspect of the left hindfoot without evident underlying osteomyelitis or other acute osseous abnormality. 2. Chronic appearing erosion at the medial head of the first metatarsal with classic location and appearance for gout. 3. Mild polyarticular osteoarthritis in the mid and forefoot. 4. Benign-appearing periosteal reaction along the medial side of the distal tibia with overlying dystrophic soft tissue calcifications which can be seen in the setting of chronic venous stasis. Empiric vancomycin and Primaxin Wound care following the patient Lower ex
[2019-12-03] MEDS: ACETAMINOPHEN ELIXIR 325 MG/10.15 ML UDC 650 MG PO (16:50)
[2019-12-03 17:54] LABS: Glucose Point of Care 125 (65-105)
[2019-12-03 20:56] LABS: Alpha-1-Antitrypsin, QN 238 mg/dL (83-199); Ceruloplasmin 39 mg/dL (18-53)
[2019-12-03 23:35] LABS: Glucose Point of Care 121 (65-105)
[2019-12-04] VITALS (25 sets, daily range): BP systolic 93–111; BP diastolic 63–76; PULSE 72–102; RESP 22–24; TEMP 37.2–37.7; O2SAT 91–99
[2019-12-04 04:56] LABS: Base Excess ABG 7.6 mEq/l (+/-2.0); Fractional Inspired Oxygen 55 %; HCO3 ABG 33.8 mEq/l (22.0-26.0); Methemoglobin ABG 0.2 %THb (0-1.5); Oxygen Content ABG 17.9 %vol (16.0-22.0); Oxygen Saturation ABG 95.9 % (95.0-100.0); Oxyhemoglobin 94.1 % THb (90.0-100.0); PCO2 ABG 54.2 mmHg (35.0-45.0); PO2 ABG 81.2 mmHg (80.0-100.0); PO2 FiO2 Ratio Arterial Blood 1.48 %; Reduced Hemoglobin 4.7 %THb (0-5.0); Total Hemoglobin 13.5 g/dL (12.0-18.0); pH ABG 7.413 (7.350-7.450)
[2019-12-04 04:57] LABS: Device VENTILATOR; Modified Allen's Test Unable to perform; Site Drawn RIGHT RADIAL
[2019-12-04 04:58] LABS: Arterial Blood Gas PEEP 10 cmH2O; Arterial Blood Gas Tidal Volume 450 ml; Arterial Blood Gas Vent Mode CMV; Arterial Blood Gas Ventilator rate 22 /MIN
[2019-12-04 05:09] LABS: Hematocrit 39.2 % (37.0-47.0); Hemoglobin 12.1 g/dL (12.0-15.0); Mean Corpuscular HGB Conc 30.9 g/dl (32-36); Mean Corpuscular Hemoglobin 28.5 pg (26-34); Mean Corpuscular Volume 92.2 fl (80-100); Mean Platelet Volume 10.4 fl (7.4-10.4); Platelet Count Result 192 k/mm3 (150-375); Red Blood Count 4.25 M/mm3 (4.2-5.4); Red Cell Distribution Width 15.9 % (11.5-14.5); White Blood Count 7.3 K/mm3 (4.5-10.0)
[2019-12-04 05:32] LABS: Alanine Aminotransferase 24 U/L (4-35); Albumin Level 3.2 g/dL (3.5-5.1); Alkaline Phosphatase 74 U/L (38-126); Anion Gap 9.4 mmol/L (7-16); Aspartate Amino Transferase 61 U/L (14-36); Bilirubin,Total 2.1 mg/dL (0.2-1.3); Blood Urea Nitrogen 27 mg/dL (7-17); Calcium 8.3 mg/dL (8.4-10.2); Carbon Dioxide 35 mmol/L (22-30); Chloride 96 mmol/L (98-107); Estimated CRCL calculation 117 ml/min; Estimated Glomerular Filt Rate > 60; Glucose 125 mg/dL (65-105); Phosphorus 4.5 mg/dL (2.5-4.5); Potassium 3.4 mmol/L (3.4-5.0); Sodium 137 mmol/L (137-145)
[2019-12-04 06:31] LABS: Glucose Point of Care 110 (65-105)
[2019-12-04] MEDS: CENTRAL LINE FLUSH 10 ML IV PUSH ×3 (06:37→22:45)
--- NOTE | 2019-12-04 08:50 | PM.PNCARD ---
Progress Note: A&P Assessment and Plan (1) Shock: Code(s): R57.9 - Shock, unspecified Status: Acute Assessment and Plan: Shock, Probable septic shock requiring intubation, Levophed weaned off yesterday. Management per metal weigher. (2) Acute on chronic combined systolic (congestive) and diastolic (congestive) heart failure: Code(s): I50.43 - Acute on chronic combined systolic (congestive) and diastolic (congestive) heart failure Status: Acute Assessment and Plan: Acute on chronic systolic and diastolic heart failure. Echocardiogram 06/18/2018 revealed that the left ventricle was not well visualized even with definity contrast. Mild concentric LVH. Mild enlargement of the LV cavity. Mild to moderate global LV systolic dysfunction. Best estimate of EF was by M-mode of 47 %. Mild enlargement of the right ventricle. Mild enlargement of the left and right atrium. Moderate pulmonary hypertension estimated in the RVSP at 65 mm Hg. Mild pulmonic regurgitation. Dilated inferior vena cava with poor inspiratory collapse consistent with elevated right atrial pressures. No significant change when compared to the echo of 2015. Echocardiogram 11/28/2019 was not helpful even with definity. The chambers were not well visualized. Echocardiogram was very difficult due to positioning, her body habitus as well as the ventilator. When discussed with Boris Cervantes [facility] even with extreme positioning on to her left side due to her body habitus still may not be able to get a good acoustic window. Limited information may be obtained from a transesophageal echocardiogram but will stop her tube feedings at midnight and assess further tomorrow. continue furosemide. Replace potassium with and additional 40 mg per tube x1 (3) Persistent atrial fibrillation: Code(s): I48.19 - Other persistent atrial fibrillation Status: Acute Assessment and Plan: History of persistent atrial fibrillation, transiently with a rapid ventricular response on admission, which improved with only supportive therapy. Continue anticoagulation with Eliquis. Have not resumed her home metoprolol because of her hypotension. Restart her metoprolol and lisinopril when able (4) Elevated troponin: Code(s): R79.89 - Other specified abnormal findings of blood chemistry Status: Acute Assessment and Plan: Very mildly elevated troponin, secondary to CHF, kidney disease, and physiologic stress. No indication of ACS. (5) Acute respiratory failure with hypoxia and hypercapnia: Code(s): J96.01 - Acute respiratory failure with hypoxia; J96.02 - Acute respiratory failure with hypercapnia Status: Acute Assessment and Plan: Remains intubated. 50% FiO2 at this time. Diuresing as above. COVID negative. Management per metal weigher. Subjective Date/time seen: 12/04/19 08:50 Interval history: Follow-up for: multiple medical problems including obstructive sleep apnea, combined systolic and diastolic congestive heart failure, pulmonary hypertension, paroxysmal atrial fibrillation, hypertension, morbid obesity and peripheral vascular that presented to the hospital for shortness of breath and chest pain. She has been intubated since 11/26/2019. Date of service: 12/04/2019: She remains intubated but withdraws to pain. AFib remained rate control. She is diuresing. Review of Systems Review of Systems: ROS unobtainable: Yes unobtainable due to endotracheal tube and unobtainable due to mental status Constitutional: Constitutional: Reports chills (No fever) and Reports fatigue (Sedated) ENT: Denies epistaxis Cardiovascular: Cardiovascular: Reports pedal edema and Denies palpitations (Heart rate was high with intubatio
[2019-12-04] MEDS: APIXABAN 5 MG TABLET PO ×2 (09:52→17:32)
[2019-12-04] MEDS: polyethylene glycoL 3350 17 GM POWD.PACK PO (09:52)
[2019-12-04] MEDS: FAMOTIDINE 20 MG TABLET PO ×2 (09:52→19:45)
[2019-12-04] MEDS: ASPIRIN 81 MG CHEWABLE TABLET PO (09:52)
[2019-12-04] MEDS: SILVERGEL (ELTA) 45 ML 1 APPLIC TOPICAL (09:53)
[2019-12-04] MEDS: POTASSIUM CHLORIDE 20 MEQ PACKET (FOR LIQUID) 40 MEQ FEED TUBE ×2 (09:53→17:32)
[2019-12-04] MEDS: TOLNAFTATE 1% POWDER 45 GM BTL 1 APPLIC TOPICAL ×2 (09:53→19:44)
[2019-12-04] MEDS: FUROSEMIDE INJ 100 MG/10 ML VIAL 80 MG IV PUSH ×2 (09:54→19:44)
[2019-12-04 11:15] LABS: Mitochondrial (M2) Ab (IgG) <=20.0 U (<=20.0)
--- NOTE | 2019-12-04 11:24 | PCDIET ---
ICU Rounding Note: Patient has been tolerating Vital 1.2 at 60mL/hr goal rate via OG. Last recorded weight is 192.1kg which is down from last review. -I/O. Bowel Motility: No documented BM. adding Dulcolax. Miralax continued. Labs Reviewed: Glu (125), BUN (27), Alb (3.2) Meds Noted: Pepcid, Fentanyl, Lasix, Versed, Primaxin, Novolog, Levophed, Miralax Additional Notes: Left ankle/calf ulcers; abdomen macerated. Following daily in ICU rounds. Assessing/reassessing every Sunday/Sunday.
[2019-12-04 11:53] LABS: Glucose Point of Care 108 (65-105)
--- NOTE | 2019-12-04 12:57 | PM.PNPUL ---
Progress Note: A&P Assessment and Plan (1) Obstructive sleep apnea on CPAP: Code(s): G47.33 - Obstructive sleep apnea (adult) (pediatric); Z99.89 - Dependence on other enabling machines and devices Status: Acute (2) Acute on chronic combined systolic (congestive) and diastolic (congestive) heart failure: Code(s): I50.43 - Acute on chronic combined systolic (congestive) and diastolic (congestive) heart failure Status: Acute (3) Acute respiratory failure with hypoxia and hypercapnia: Code(s): J96.01 - Acute respiratory failure with hypoxia; J96.02 - Acute respiratory failure with hypercapnia Status: Acute Assessment and Plan: sputum, urine and blood cultures sent. - continue careful diuresis - PEEP of 8-10 is adequate - will need extubation to BIPAP with back up rate of 16 - daily sedation holidays and weaning trials Subjective Date/time seen: 12/04/19 12:57 Interval history: Morbidly obese female intubated with respiratory failure due to CHF. Underlying severe JAIMIE. Stable intubate on CMV. Had Fever of up to 38.7 yesterday afternoon. Sptum from ETT appears thick and yellow with some blood, Urine appears dark and cloudy. Review of Systems Review of Systems: All systems reviewed & are unremarkable except as noted in HPI and below Exam Narrative: Exam Narrative: Drips: Norepinephrine 1 micrograms/minute Fentanyl 75 micrograms/hour Versed 4 milligrams/hour Tube feeds: Alphonse 1.2 @ 60 ml/hour Vent settings: CMV+ 50%, PEEP 10, TV 450 ml. Const: General: no acute distress (orally intubated, sedated) Eyes: General: appearance normal, both eyes and all related structures Neck: Lymphatic: lymphadenopathy not noted Resp: Auscultation: diminished lung sounds (Large body habitus) Cardio: Rhythm: abnormal rhythm irregularly irregular Skin: Lesions: lesion noted (Chronic stasis changes L lower extremity, yellow crusting, 3+ edema) Neuro: Speech: No normal speech (Sedated intubated) Extrem: Right lower extremity: lower leg (Right [id number] amputation) and ankle (dressing kerlix wrapped over left ankle ulcer ) Objective Data Vital Signs Vital Signs: Vital Signs - 24 hr 12/03/19 14:00 12/03/19 14:51 12/03/19 16:00 Temperature 38.2 C H 38.7 C H Pulse Rate 113 H 114 H 106 H Respiratory Rate 22 H 22 H Blood Pressure 93/64 L 96/56 L Pulse Oximetry 91 91 91 12/03/19 16:50 12/03/19 17:02 12/03/19 18:00 Temperature 38.7 C H 38.8 C H Pulse Rate 106 H 126 H Respiratory Rate 22 H Blood Pressure 101/65 Pulse Oximetry 91 90 12/03/19 19:32 12/03/19 20:00 12/03/19 21:20 Temperature 38.0 C H Pulse Rate 118 H 118 H 103 H Respiratory Rate 22 H 22 H Blood Pressure 91/65 L Pulse Oximetry 92 92 12/03/19 21:22 12/03/19 22:00 12/03/19 23:11 Temperature Pulse Rate 103 H 91 92 Respiratory Rate 22 H 22 H 22 H Blood Pressure 90/61 L Pulse Oximetry 94 12/03/19 23:13 12/04/19 00:00 12/04/19 01:24 Temperature 37.7 C H Pulse Rate 83 91 85 Respiratory Rate 22 H 22 H Blood Pressure 100/75 Pulse Oximetry 94 93 12/04/19 01:25 12/04/19 02:00 12/04/19 02:25 Temperature 37.6 C Pulse Rate 85 86 84 Respiratory Rate 22 H 22 H 22 H Blood Pressure 97/63 L Pulse Oximetry 94 12/04/19 02:27 12/04/19 03:26 12/04/19 04:00 Temperature 37.3 C Pulse Rate 84 94 102 H Respiratory Rate 22 H 24 H 24 H Blood Pressure 98/69 L Pulse Oximetry 94 12/04/19 05:00 12/04/19 05:06 12/04/19 06:00 Temperature 37.4 C Pulse Rate 77 83 81 Respiratory Rate 22 H 22 H Blood Pressure 97/70 L Pulse Oximetry 94 95 12/04/19 08:00 12/04/19 08:45 12/04/19 10:00 Temperature 37.2 C Pulse Rate 82 72 76 Respiratory Rate 22 H 22 H Blood Pressure 107/68 95/67 L Pulse Oximetry 96 95 99 12/04/19 12:00 Temperature 37.3 C Pulse Rate 84 Respiratory Rate 22 H Blood Pressure 93/66 L Pulse Oximetry 94 Intake/Output Intake/
[2019-12-04] MEDS: BISACODYL 10 MG SUPPOSITORY RECTAL (14:11)
--- NOTE | 2019-12-04 14:14 | WPDINTPN ---
Progress Note: A&P Assessment and Plan (1) Acute respiratory failure with hypoxia and hypercapnia: Code(s): J96.01 - Acute respiratory failure with hypoxia; J96.02 - Acute respiratory failure with hypercapnia Status: Acute Assessment and Plan: Acute Respiratory failure secondary to CHF, COPD, obesity hypoventilation, possible pneumonia Continue full mechanical ventilation support to prevent hypoxemia/hypercarbia and end organ damage. ABG and PCXR reviewed, decrease FiO2 as tolerated Low tidal volume ventilation strategy to prevent volutrauma Bronchodilators patient diuresing well with high-dose of diuretic, continue aggressive diuresis with net fluid negative which least 1-1.5 L COVID-19 ruled out. SARS-CoV-2 PCR was negative Patient OFF Airborne, Droplet and Contact Isolation . - appreciate pulmonology following the patient (2) Shock: Code(s): R57.9 - Shock, unspecified Status: Acute Assessment and Plan: RESOLVED. Patient off vasopressors Septic versus cardiogenic versus combination Small IV fluid bolus given on admission due to suggestion of pulmonary edema on chest x-ray Blood, urine, wound cultures were negative antibiotics were discontinued on 12/01/2019 echocardiogram performed 11/28/2019 Summary 1. Despite definity contrast injection visualization is exceedingly difficult presumably because of obesity and mechanical ventilation. 2. Not possible to reliably reported ejection fraction based on this poor-quality exam. 3. Right atrial chamber dimension is moderately enlarged. 4. There is mild aortic valve sclerosis. 5. Aortic valve leaflet separation is well maintained the valve does not appear to be stenotic. AMANDA done on 12/02/2019 showed mild to moderate LV dilatation, EF of 45%, biatrial enlargement, dolp-[id number]-hqvlimtl mitral valve regurg PA pressures around 45-50 mmHg (3) Elevated troponin: Code(s): R79.89 - Other specified abnormal findings of blood chemistry Status: Acute Assessment and Plan: Small increase likely secondary to respiratory failure shock and acute kidney injury Aspirin and Eliquis (4) Acute on chronic combined systolic (congestive) and diastolic (congestive) heart failure: Code(s): I50.43 - Acute on chronic combined systolic (congestive) and diastolic (congestive) heart failure Status: Acute Assessment and Plan: Echo as above continue diuresis, - when patient is more hemodynamically stable will start MERCEDES-inhibitor and metoprolol which were patient's home meds (5) Paroxysmal atrial fibrillation: Code(s): I48.0 - Paroxysmal atrial fibrillation Status: Acute Assessment and Plan: Currently rate controlled without any intervention Aspirin and Eliquis (6) Renal failure: Code(s): N19 - Unspecified kidney failure Status: Acute Assessment and Plan: Acute kidney injury likely multifactorial Small IV fluid bolus given on admission Creatinine in normal range this morning Continue diuresis Monitor urine output electrolytes and creatinine King in place for accurate urine output Normal CK level (7) Ulcer of left medial lower extremity with fat layer exposed: Code(s): L97.822 - Non-pressure chronic ulcer of other part of left lower leg with fat layer exposed Status: Acute Assessment and Plan: XR IMPRESSION: 1. Deep ulceration and/or soft tissue debridement at the medial aspect of the left hindfoot without evident underlying osteomyelitis or other acute osseous abnormality. 2. Chronic appearing erosion at the medial head of the first metatarsal with classic location and appearance for gout. 3. Mild polyarticular osteoarthritis in the mid and forefoot. 4. Benign-appearing periosteal reaction along the medial side of the distal tibia with overlying dystrophic soft tissue calcifications which can be seen in the setting of chronic venous stasis. Empiric vancomycin and Soledad
[2019-12-04 17:21] LABS: Glucose Point of Care 122 (65-105)
[2019-12-04] MEDS: ACETAMINOPHEN ELIXIR 325 MG/10.15 ML UDC 650 MG PO (19:43)
[2019-12-04 23:57] LABS: Glucose Point of Care 113 (65-105)
[2019-12-05] VITALS (27 sets, daily range): BP systolic 84–118; BP diastolic 53–84; PULSE 68–101; RESP 22–24; TEMP 37.2–37.7; O2SAT 90–96
[2019-12-05] MEDS: ACETAMINOPHEN ELIXIR 325 MG/10.15 ML UDC 650 MG PO ×2 (04:28→19:49)
[2019-12-05 05:02] LABS: Hematocrit 40.1 % (37.0-47.0); Hemoglobin 12.1 g/dL (12.0-15.0); Mean Corpuscular HGB Conc 30.2 g/dl (32-36); Mean Corpuscular Hemoglobin 27.9 pg (26-34); Mean Corpuscular Volume 92.4 fl (80-100); Mean Platelet Volume 10.8 fl (7.4-10.4); Platelet Count Result 197 k/mm3 (150-375); Red Blood Count 4.34 M/mm3 (4.2-5.4); Red Cell Distribution Width 15.9 % (11.5-14.5); White Blood Count 7.2 K/mm3 (4.5-10.0)
[2019-12-05 05:16] LABS: Alanine Aminotransferase 26 U/L (4-35); Albumin Level 3.4 g/dL (3.5-5.1); Alkaline Phosphatase 78 U/L (38-126); Anion Gap 7.6 mmol/L (7-16); Aspartate Amino Transferase 56 U/L (14-36); Bilirubin,Total 1.9 mg/dL (0.2-1.3); Blood Urea Nitrogen 25 mg/dL (7-17); Calcium 8.7 mg/dL (8.4-10.2); Carbon Dioxide 37 mmol/L (22-30); Chloride 98 mmol/L (98-107); Estimated CRCL calculation 133 ml/min; Estimated Glomerular Filt Rate > 60; Glucose 123 mg/dL (65-105); Magnesium 2.1 mg/dL (1.6-2.3); Phosphorus 3.9 mg/dL (2.5-4.5); Potassium 3.6 mmol/L (3.4-5.0); Sodium 139 mmol/L (137-145)
[2019-12-05 05:20] LABS: Alveolar/Arterial O2 Gradient 216.3 mmHg; Base Excess ABG 10.3 mEq/l (+/-2.0); Carboxyhemoglobin 0.6 % THb (0-2.0); Fractional Inspired Oxygen 50 %; HCO3 ABG 36.5 mEq/l (22.0-26.0); Methemoglobin ABG 0.2 %THb (0-1.5); Oxygen Content ABG 17.3 %vol (16.0-22.0); Oxyhemoglobin 92.3 % THb (90.0-100.0); PCO2 ABG 55.5 mmHg (35.0-45.0); PO2 ABG 68.8 mmHg (80.0-100.0); PO2 FiO2 Ratio Arterial Blood 1.38 %; Reduced Hemoglobin 6.9 %THb (0-5.0); Total Hemoglobin 13.3 g/dL (12.0-18.0); pH ABG 7.436 (7.350-7.450)
[2019-12-05 05:21] LABS: Arterial Blood Gas PEEP 10 cmH2O; Arterial Blood Gas Tidal Volume 450 ml; Arterial Blood Gas Vent Mode CMV; Arterial Blood Gas Ventilator rate 22 /MIN; Device VENTILATOR; Modified Allen's Test Unable to perform; Site Drawn LEFT RADIAL
[2019-12-05] MEDS: CENTRAL LINE FLUSH 10 ML IV PUSH ×3 (06:21→21:46)
[2019-12-05] MEDS: APIXABAN 5 MG TABLET PO ×2 (08:03→18:14)
[2019-12-05] MEDS: FAMOTIDINE 20 MG TABLET PO ×2 (08:03→19:50)
[2019-12-05] MEDS: ASPIRIN 81 MG CHEWABLE TABLET PO (08:03)
[2019-12-05] MEDS: polyethylene glycoL 3350 17 GM POWD.PACK PO (08:03)
[2019-12-05] MEDS: FUROSEMIDE INJ 100 MG/10 ML VIAL 80 MG IV PUSH ×2 (08:03→20:00)
[2019-12-05] MEDS: SILVERGEL (ELTA) 45 ML 1 APPLIC TOPICAL (08:04)
[2019-12-05] MEDS: TOLNAFTATE 1% POWDER 45 GM BTL 1 APPLIC TOPICAL ×2 (08:04→19:54)
--- NOTE | 2019-12-05 08:54 | PM.PNCARD ---
Progress Note: A&P Assessment and Plan (1) Shock: Code(s): R57.9 - Shock, unspecified Status: Acute Assessment and Plan: Shock, Probable septic shock requiring intubation, Levophed weaned off yesterday. Management per shell fisherman. (2) Acute on chronic combined systolic (congestive) and diastolic (congestive) heart failure: Code(s): I50.43 - Acute on chronic combined systolic (congestive) and diastolic (congestive) heart failure Status: Acute Assessment and Plan: Acute on chronic systolic and diastolic heart failure. Echocardiogram 06/18/2018 revealed that the left ventricle was not well visualized even with definity contrast. Mild concentric LVH. Mild enlargement of the LV cavity. Mild to moderate global LV systolic dysfunction. Best estimate of EF was by M-mode of 47 %. Mild enlargement of the right ventricle. Mild enlargement of the left and right atrium. Moderate pulmonary hypertension estimated in the RVSP at 65 mm Hg. Mild pulmonic regurgitation. Dilated inferior vena cava with poor inspiratory collapse consistent with elevated right atrial pressures. No significant change when compared to the echo of 2015. Echocardiogram 11/28/2019 was not helpful even with definity. The chambers were not well visualized. Echocardiogram was very difficult due to positioning, her body habitus as well as the ventilator. When discussed with Boris Cervantes [facility] even with extreme positioning on to her left side due to her body habitus still may not be able to get a good acoustic window. Limited information may be obtained from a transesophageal echocardiogram but will stop her tube feedings at midnight and assess further tomorrow. continue furosemide. will try dose of metolazone 2.5 mg per tube x1. Replace potassium with an additional 40 mEq p.o. x1 (3) Persistent atrial fibrillation: Code(s): I48.19 - Other persistent atrial fibrillation Status: Acute Assessment and Plan: History of persistent atrial fibrillation, transiently with a rapid ventricular response on admission, which improved with only supportive therapy. Continue anticoagulation with Eliquis. Have not resumed her home metoprolol because of her hypotension. Restart her metoprolol and lisinopril when able (4) Elevated troponin: Code(s): R79.89 - Other specified abnormal findings of blood chemistry Status: Acute Assessment and Plan: Very mildly elevated troponin, secondary to CHF, kidney disease, and physiologic stress. No indication of ACS. (5) Acute respiratory failure with hypoxia and hypercapnia: Code(s): J96.01 - Acute respiratory failure with hypoxia; J96.02 - Acute respiratory failure with hypercapnia Status: Acute Assessment and Plan: Remains intubated. 50% FiO2 at this time. Diuresing as above. COVID negative. Management per shell fisherman. Subjective Date/time seen: 12/05/19 08:54 Interval history: Follow-up for: multiple medical problems including obstructive sleep apnea, combined systolic and diastolic congestive heart failure, pulmonary hypertension, paroxysmal atrial fibrillation, hypertension, morbid obesity and peripheral vascular that presented to the hospital for shortness of breath and chest pain. She has been intubated since 11/26/2019. Date of service: 12/05/2019: She remains intubated but withdraws to pain. AFib remained rate control. She is diuresing. no significant arrhythmias Review of Systems Review of Systems: ROS unobtainable: Yes unobtainable due to endotracheal tube and unobtainable due to mental status Constitutional: Constitutional: Reports chills (No fever) and Reports fatigue (Sedated) ENT: Denies epistaxis Cardiovascular: Cardiovascular: Reports
--- NOTE | 2019-12-05 09:33 | P.PNINT_ITS ---
Progress Note: A&P Assessment and Plan (1) Acute respiratory failure with hypoxia and hypercapnia: Code(s): J96.01 - Acute respiratory failure with hypoxia; J96.02 - Acute respiratory failure with hypercapnia Status: Acute Assessment and Plan: Acute Respiratory failure secondary to CHF, COPD, obesity hypoventilation, possible pneumonia Continue full mechanical ventilation support to prevent hypoxemia/hypercarbia and end organ damage. ABG and PCXR reviewed, decrease FiO2 as tolerated Low tidal volume ventilation strategy to prevent volutrauma Bronchodilators patient diuresing well with high-dose of diuretic, continue aggressive diuresis with net fluid negative which least 1-1.5 L COVID-19 ruled out. SARS-CoV-2 PCR was negative Patient OFF Airborne, Droplet and Contact Isolation. - appreciate pulmonology following the patient (2) Shock: Code(s): R57.9 - Shock, unspecified Status: Acute Assessment and Plan: RESOLVED. Patient off vasopressors Septic versus cardiogenic versus combination Small IV fluid bolus given on admission due to suggestion of pulmonary edema on chest x-ray Blood, urine, wound cultures were negative antibiotics were discontinued on 12/01/2019 echocardiogram performed 11/28/2019 Summary 1. Despite definity contrast injection visualization is exceedingly difficult presumably because of obesity and mechanical ventilation. 2. Not possible to reliably reported ejection fraction based on this poor-quality exam. 3. Right atrial chamber dimension is moderately enlarged. 4. There is mild aortic valve sclerosis. 5. Aortic valve leaflet separation is well maintained the valve does not appear to be stenotic. AMANDA done on 12/02/2019 showed mild to moderate LV dilatation, EF of 45%, biatrial enlargement, [id number]-ce-exqglnzr mitral valve regurg PA pressures around 45-50 mmHg (3) Elevated troponin: Code(s): R79.89 - Other specified abnormal findings of blood chemistry Status: Acute Assessment and Plan: Small increase likely secondary to respiratory failure shock and acute kidney injury Aspirin and Eliquis (4) Acute on chronic combined systolic (congestive) and diastolic (congestive) heart failure: Code(s): I50.43 - Acute on chronic combined systolic (congestive) and diastolic (congestive) heart failure Status: Acute Assessment and Plan: Echo as above continue diuresis, - when patient is more hemodynamically stable will start MERCEDES-inhibitor and metoprolol which were patient's home meds (5) Paroxysmal atrial fibrillation: Code(s): I48.0 - Paroxysmal atrial fibrillation Status: Acute Assessment and Plan: Currently rate controlled without any intervention Aspirin and Eliquis (6) Renal failure: Code(s): N19 - Unspecified kidney failure Status: Acute Assessment and Plan: Acute kidney injury likely multifactorial Small IV fluid bolus given on admission Creatinine in normal range this morning Continue diuresis Monitor urine output electrolytes and creatinine King in place for accurate urine output Normal CK level (7) Ulcer of left medial lower extremity with fat layer exposed: Code(s): L97.822 - Non-pressure chronic ulcer of other part of left lower leg with fat layer exposed Status: Acute Assessment and Plan: XR IMPRESSION: 1. Deep ulceration and/or soft tissue debridement at the medial aspect of the left hindfoot without evident underlying osteomyelitis or other acute osseous abnormality. 2. Chronic appea
[2019-12-05] MEDS: metOLazone 2.5 MG TABLET FEED TUBE (12:15)
[2019-12-05 12:37] LABS: Glucose Point of Care 86 (65-105)
--- NOTE | 2019-12-05 13:35 | PCDIET ---
Nutrition Follow-Up Complete: Nutrition Diagnosis: Inadequate oral intake related to oral intubation as evidenced by NPO status. Nutrition Goal: Patient to meet estimated nutritional needs. Goal met. Patient tolerating Vital 1.2 at 60mL/hr goal rate. Still no bowel movement. Discussed with RN/MD during rounds. Last recorded weight is 193.1 kg which is up from last review, despite -I/O. Will monitor. Bowel Motility: No documented BM. Patient continues on Miralax. No additional orders today. Labs Reviewed: Glu (123), BUN (25), Alb (3.4) Meds Noted: Pepcid, Fentanyl, Lasix, Primaxin, Novolog, Versed, Miralax Additional Notes: Buttocks/abdomen macerated. Ulcers to left ankle and calf. Will continue to monitor with same goal. Nutrition Monitoring and Evaluation: Follow up every Sunday/Sunday.
--- NOTE | 2019-12-05 14:12 | PM.PNPUL ---
Progress Note: A&P Assessment and Plan (1) Obstructive sleep apnea on CPAP: Code(s): G47.33 - Obstructive sleep apnea (adult) (pediatric); Z99.89 - Dependence on other enabling machines and devices Status: Acute (2) Acute on chronic combined systolic (congestive) and diastolic (congestive) heart failure: Code(s): I50.43 - Acute on chronic combined systolic (congestive) and diastolic (congestive) heart failure Status: Acute (3) Acute respiratory failure with hypoxia and hypercapnia: Code(s): J96.01 - Acute respiratory failure with hypoxia; J96.02 - Acute respiratory failure with hypercapnia Status: Acute Assessment and Plan: sputum, urine and blood cultures sent. - continue careful diuresis - PEEP of 8-10 is adequate - will need extubation to BIPAP with back up rate of 16 - daily sedation holidays and weaning trials Subjective Date/time seen: 12/05/19 14:12 Interval history: Stable overnight, no further fevers, ET tube secretions are thinner today. Sputum, urine and blood cultures pending. On CMV+ today with IV sedation drips fentanyl and versed. Review of Systems Review of Systems: All systems reviewed & are unremarkable except as noted in HPI and below Exam Narrative: Exam Narrative: Drips: Norepinephrine 1 micrograms/minute Fentanyl 75 micrograms/hour Versed 4 milligrams/hour Tube feeds: Alphonse 1.2 @ 60 ml/hour Vent settings: CMV+ 50%, PEEP 10, TV 450 ml. Const: General: no acute distress (orally intubated, sedated) Eyes: General: appearance normal, both eyes and all related structures Neck: Lymphatic: lymphadenopathy not noted Resp: Auscultation: diminished lung sounds (Large body habitus) Cardio: Rhythm: abnormal rhythm irregularly irregular Skin: Lesions: lesion noted (Chronic stasis changes L lower extremity, yellow crusting, 3+ edema) Neuro: Speech: No normal speech (Sedated intubated) Extrem: Right lower extremity: lower leg (Right hpuka-ycp-xqho amputation) and ankle (dressing kerlix wrapped over left ankle ulcer ) Objective Data Vital Signs Vital Signs: Vital Signs - 24 hr 12/04/19 16:00 12/04/19 17:24 12/04/19 18:00 Temperature 37.4 C 37.4 C Pulse Rate 85 90 84 Respiratory Rate 22 H 24 H Blood Pressure 103/76 111/69 Pulse Oximetry 93 93 93 12/04/19 19:50 12/04/19 20:00 12/04/19 22:00 Temperature 37.6 C 37.3 C Pulse Rate 97 92 83 Respiratory Rate 22 H 22 H Blood Pressure 103/67 102/70 Pulse Oximetry 91 95 91 12/04/19 23:07 12/05/19 00:00 12/05/19 00:01 Temperature 37.3 C Pulse Rate 72 76 77 Respiratory Rate 22 H 22 H Blood Pressure 96/62 L Pulse Oximetry 93 93 12/05/19 02:00 12/05/19 02:29 12/05/19 04:00 Temperature 37.3 C 37.5 C Pulse Rate 68 80 90 Respiratory Rate 22 H 22 H Blood Pressure 90/61 L 117/66 Pulse Oximetry 91 92 90 12/05/19 04:26 12/05/19 05:22 12/05/19 06:00 Temperature 37.4 C Pulse Rate 91 96 80 Respiratory Rate 22 H 22 H Blood Pressure 101/72 Pulse Oximetry 93 94 12/05/19 07:45 12/05/19 08:00 12/05/19 10:00 Temperature 37.2 C Pulse Rate 71 71 71 Respiratory Rate 22 H 22 H Blood Pressure 103/67 98/61 L Pulse Oximetry 96 90 92 12/05/19 11:45 12/05/19 12:00 12/05/19 12:17 Temperature 37.2 C Pulse Rate 93 100 84 Respiratory Rate 22 H 24 H Blood Pressure 118/84 Pulse Oximetry 92 90 Intake/Output Intake/Output: Intake & Output 12/02/19 12/03/19 12/04/19 12/05/19 23:59 23:59 23:59 23:59 Intake Total 1839 1485 2473 961 Output Total 3350 3400 2450 7260 [facility] -[id number] 23 -035 Meds/Results Medications: Active Medications Generic Name Dose Route Start Last Admin Trade Name Freq PRN Reason Stop Dose Admin Acetaminophen 650 mg 12/03/19 16:38 12/05/19 04:28 Tylenol Elixir PO 650 mg Q6HR PRN Administration Mild Pain (1-3) or Fever Apixaban 5 mg 11/27/19 09:00 12/05/19 08:03 Eliquis PO 5 mg BID CHELSEA A
[2019-12-05 17:02] LABS: Anion Gap 7.2 mmol/L (7-16); Blood Urea Nitrogen 27 mg/dL (7-17); Calcium 8.6 mg/dL (8.4-10.2); Carbon Dioxide 38 mmol/L (22-30); Chloride 97 mmol/L (98-107); Estimated CRCL calculation 117 ml/min; Estimated Glomerular Filt Rate > 60; Glucose 122 mg/dL (65-105); Potassium 3.2 mmol/L (3.4-5.0); Sodium 139 mmol/L (137-145)
--- NOTE | 2019-12-05 17:06 | PM.IMPN ---
Progress Note: A&P Assessment and Plan (1) Shock: Code(s): R57.9 - Shock, unspecified Status: Acute Assessment and Plan: Etiology not entirely clear but would consider septic shock with possible source to include left foot wound, pneumonia, or even COVID-19. Covid is negative, bc and uc are negative pt is on iv vanc and imipenem cultures appear nl (2) Acute respiratory failure with hypoxia and hypercapnia: Code(s): J96.01 - Acute respiratory failure with hypoxia; J96.02 - Acute respiratory failure with hypercapnia Status: Acute Assessment and Plan: Multifactorial in etiology to include sleep apnea. Congestive heart failure and possible underlying pneumonia. Intubated failed BIPAP theraphy 12/05/19 17:06 63-year-old female with history of diabetes diabetic, deep ulceration,wound status post right BKA presented emergency department with shortness of presumably exacerbation of CHF is seen cardiac echo was not able to determine etiology due to morbid obesity, patient is being diuresed, on vent, patient had elevated LFT seen by GI suspect most likely secondary to morbid obesity and fatty liver,_ patient had a transthoracic cardiac echo due to body habitus was not very well visualized, today patient had AMANDA which showed patient mild dilatation of left ventricular with mild to moderate LV dysfunction with ejection fraction of 45%, moderate pulmonary hypertension, otherwise cardiac echo was normal, patient still remains intubated being diuresed._ seen by pulmonology cardiology and legal examiner (3) Elevated troponin: Code(s): R79.89 - Other specified abnormal findings of blood chemistry Status: Acute Assessment and Plan: Secondary to CHF (4) Acute on chronic combined systolic (congestive) and diastolic (congestive) heart failure: Code(s): I50.43 - Acute on chronic combined systolic (congestive) and diastolic (congestive) heart failure Status: Acute Assessment and Plan: coming off levophed now on iv lasix bid (5) Paroxysmal atrial fibrillation: Code(s): I48.0 - Paroxysmal atrial fibrillation Status: Acute Assessment and Plan: Rate controlled atrial fibrillation on telemetry She is on apixaban for stroke prophylaxis. and ASA (6) Renal failure: Code(s): N19 - Unspecified kidney failure Status: Acute Assessment and Plan: Creat is NL now King catheter to monitor strict I/O. (7) Hypertension: Code(s): I10 - Essential (primary) hypertension Status: Acute Assessment and Plan: Lisinopril and metoprolol are currently on hold.weaning off levophed (8) Ulcer of left medial lower extremity with fat layer exposed: Code(s): L97.822 - Non-pressure chronic ulcer of other part of left lower leg with fat layer exposed Status: Acute Assessment and Plan: Wound cultures will be obtained. wound care on board (9) Obstructive sleep apnea on CPAP: Code(s): G47.33 - Obstructive sleep apnea (adult) (pediatric); Z99.89 - Dependence on other enabling machines and devices Status: Acute Assessment and Plan: Currently on the ventilator. Subjective Date/time seen: 12/05/19 17:06 63-year-old female with history of diabetes diabetic, deep ulceration,wound status post right BKA presented emergency department with shortness of presumably exacerbation of CHF is seen cardiac echo was not able to determine etiology due to morbid obesity, patient is bein
[2019-12-06] VITALS (35 sets, daily range): BP systolic 88–119; BP diastolic 57–80; PULSE 64–88; RESP 22; TEMP 37.2–37.9; O2SAT 90–99
[2019-12-06 00:08] LABS: Glucose Point of Care 136 (65-105)
[2019-12-06 04:56] LABS: Alveolar/Arterial O2 Gradient 235.5 mmHg; Base Excess ABG 11.4 mEq/l (+/-2.0); Carboxyhemoglobin 0.7 % THb (0-2.0); Fractional Inspired Oxygen 50 %; HCO3 ABG 36.5 mEq/l (22.0-26.0); Methemoglobin ABG 0.2 %THb (0-1.5); Oxygen Content ABG 16.9 %vol (16.0-22.0); Oxyhemoglobin 91.8 % THb (90.0-100.0); PCO2 ABG 49.4 mmHg (35.0-45.0); PO2 ABG 65.4 mmHg (80.0-100.0); PO2 FiO2 Ratio Arterial Blood 1.31 %; Reduced Hemoglobin 7.3 %THb (0-5.0); Total Hemoglobin 13.1 g/dL (12.0-18.0); pH ABG 7.486 (7.350-7.450)
[2019-12-06 04:57] LABS: Device VENTILATOR; Modified Allen's Test Pass; Site Drawn RIGHT RADIAL
[2019-12-06 04:58] LABS: Arterial Blood Gas PEEP 10 cmH2O; Arterial Blood Gas Tidal Volume 450 ml; Arterial Blood Gas Vent Mode CMV; Arterial Blood Gas Ventilator rate 22 /MIN
[2019-12-06 05:41] LABS: Hematocrit 37.6 % (37.0-47.0); Hemoglobin 11.3 g/dL (12.0-15.0); Mean Corpuscular HGB Conc 30.1 g/dl (32-36); Mean Corpuscular Hemoglobin 27.4 pg (26-34); Mean Platelet Volume 10.4 fl (7.4-10.4); Platelet Count Result 208 k/mm3 (150-375); Red Blood Count 4.13 M/mm3 (4.2-5.4); White Blood Count 6.5 K/mm3 (4.5-10.0)
[2019-12-06 05:54] LABS: Chloride 95 mmol/L (98-107)
[2019-12-06] MEDS: CENTRAL LINE FLUSH 10 ML IV PUSH ×3 (06:04→22:00)
[2019-12-06] MEDS: ACETAMINOPHEN ELIXIR 325 MG/10.15 ML UDC 650 MG PO ×2 (06:07→15:28)
[2019-12-06 06:50] LABS: Alanine Aminotransferase 22 U/L (4-35); Albumin Level 3.2 g/dL (3.5-5.1); Alkaline Phosphatase 78 U/L (38-126); Aspartate Amino Transferase 45 U/L (14-36); Bilirubin,Total 1.5 mg/dL (0.2-1.3); Blood Urea Nitrogen 28 mg/dL (7-17); Calcium 8.7 mg/dL (8.4-10.2); Carbon Dioxide > 40 mmol/L (22-30); Estimated CRCL calculation 116 ml/min; Estimated Glomerular Filt Rate > 60; Glucose 96 mg/dL (65-105); Phosphorus 4.5 mg/dL (2.5-4.5); Potassium 2.9 mmol/L (3.4-5.0); Sodium 140 mmol/L (137-145)
[2019-12-06] MEDS: FUROSEMIDE INJ 100 MG/10 ML VIAL 80 MG IV PUSH ×2 (09:48→20:05)
[2019-12-06] MEDS: APIXABAN 5 MG TABLET PO ×2 (09:48→17:20)
[2019-12-06] MEDS: polyethylene glycoL 3350 17 GM POWD.PACK PO (09:48)
[2019-12-06] MEDS: ASPIRIN 81 MG CHEWABLE TABLET PO (09:49)
[2019-12-06] MEDS: FAMOTIDINE 20 MG TABLET PO ×2 (09:49→20:05)
[2019-12-06] MEDS: TOLNAFTATE 1% POWDER 45 GM BTL 1 APPLIC TOPICAL ×2 (09:50→20:06)
[2019-12-06] MEDS: SILVERGEL (ELTA) 45 ML 1 APPLIC TOPICAL (09:51)
--- NOTE | 2019-12-06 10:01 | WPDINTPN ---
Progress Note: A&P Assessment and Plan (1) Acute respiratory failure with hypoxia and hypercapnia: Code(s): J96.01 - Acute respiratory failure with hypoxia; J96.02 - Acute respiratory failure with hypercapnia Status: Acute Assessment and Plan: Acute hypoxemic respiratory failure secondary to CHF, COPD, obesity hypoventilation syndrome, probable JAIMIE, possible pneumonia. Continue full mechanical ventilation support to prevent hypoxemia/hypercarbia and end organ damage. Continue bronchodilators, empiric imipenem, and diuresis. COVID-19 ruled out. SARS-CoV-2 PCR was negative. (2) Shock: Code(s): R57.9 - Shock, unspecified Status: Acute Assessment and Plan: RESOLVED. Patient off vasopressors; likely related to sepsis. (3) Elevated troponin: Code(s): R79.89 - Other specified abnormal findings of blood chemistry Status: Acute Assessment and Plan: Small increase likely secondary to respiratory failure shock and acute kidney injury. Continue aspirin and Eliquis. Cardiology is following. (4) Acute on chronic combined systolic (congestive) and diastolic (congestive) heart failure: Code(s): I50.43 - Acute on chronic combined systolic (congestive) and diastolic (congestive) heart failure Status: Acute Assessment and Plan: EF 45%. Continue diuresis. (5) Paroxysmal atrial fibrillation: Code(s): I48.0 - Paroxysmal atrial fibrillation Status: Acute Assessment and Plan: Currently rate controlled without any intervention. Continue Eliquis. (6) Renal failure: Code(s): N19 - Unspecified kidney failure Status: Acute Assessment and Plan: Resolved. (7) Ulcer of left medial lower extremity with fat layer exposed: Code(s): L97.822 - Non-pressure chronic ulcer of other part of left lower leg with fat layer exposed Status: Acute Assessment and Plan: Empiric Primaxin. Wound care is following the patient. (8) DVT prophylaxis: Code(s): Z29.9 - Encounter for prophylactic measures, unspecified Status: Acute Assessment and Plan: DVT prophylaxis -Eliquis Stress ulcer prophylaxis -Pepcid Nutrition -continue tube feeds and sliding scale insulin (9) Hypokalemia: Code(s): E87.6 - Hypokalemia Status: Acute Assessment and Plan: Related to diuresis. Replace and recheck. (10) Morbid obesity: Code(s): E66.01 - Morbid (severe) obesity due to excess calories Status: Acute Assessment and Plan: Pt will need counseling about dietary modification when able. Additional Plan Code Status - Full Code Total Critical Care Time - 32 minutes Due to a high probability of clinically significant, life threatening deterioration, the patient required my highest level of preparedness to intervene emergently and I personally spent this critical care time directly and personally managing the patient. This critical care time included obtaining a history; examining the patient; pulse oximetry; ordering and review of studies; arranging urgent treatment with development of a management plan; evaluation of patient's response to treatment; frequent reassessment; and discussions with other providers. It was exclusive of separately billable procedures and treating other patients and teaching time. Please see Assessment and Plan section and the rest of the note for further information on patient assessment and treatment Subjective Date/time seen: 12/06/19 10:01 Pt remains on mechanical ventilation with AC 450x22, FiO2 0.5, PEEP 10. No acute events noted. SAT performed today - pt was not following commands but was flailing wildly. Review of Systems Review of Systems: ROS unobtainable: Yes unobtainable due to endotracheal tube Exam Narrative: Exam Narrative: intubated Const: General: comfortable and no acute distress HENMT: Other: ETT in place Eyes: Sclera: sclerae normal Pupils: Equal, round
--- NOTE | 2019-12-06 10:59 | PM.PNCARD ---
Progress Note: A&P Assessment and Plan (1) Shock: Code(s): R57.9 - Shock, unspecified Status: Acute Assessment and Plan: Shock, Probable septic shock requiring intubation, Levophed weaned off yesterday. Management per collar sewer. (2) Acute on chronic combined systolic (congestive) and diastolic (congestive) heart failure: Code(s): I50.43 - Acute on chronic combined systolic (congestive) and diastolic (congestive) heart failure Status: Acute Assessment and Plan: Acute on chronic systolic and diastolic heart failure. Continue diuresis as BP allows. Monitor electrolytes and replete Potassium more aggressively. Echocardiogram 06/18/2018 revealed that the left ventricle was not well visualized even with definity contrast. Mild concentric LVH. Mild enlargement of the LV cavity. Mild to moderate global LV systolic dysfunction. Best estimate of EF was by M-mode of 47 %. Mild enlargement of the right ventricle. Mild enlargement of the left and right atrium. Moderate pulmonary hypertension estimated in the RVSP at 65 mm Hg. Mild pulmonic regurgitation. Dilated inferior vena cava with poor inspiratory collapse consistent with elevated right atrial pressures. No significant change when compared to the echo of 2014. Echocardiogram 11/28/2019 was not helpful even with definity. The chambers were not well visualized. Echocardiogram was very difficult due to positioning, her body habitus as well as the ventilator. When discussed with Boris Cervantes [facility] even with extreme positioning on to her left side due to her body habitus still may not be able to get a good acoustic window. Limited information may be obtained from a transesophageal echocardiogram but will stop her tube feedings at midnight and assess further tomorrow. continue furosemide. will try dose of metolazone 2.5 mg per tube x1. Replace potassium with an additional 40 mEq p.o. x1 (3) Persistent atrial fibrillation: Code(s): I48.19 - Other persistent atrial fibrillation Status: Acute Assessment and Plan: History of persistent atrial fibrillation, heart rate reasonably controlled at this time. Continue anticoagulation with Eliquis. Metoprolol on hold because of her hypotension. Restart her metoprolol and lisinopril when able (4) Elevated troponin: Code(s): R79.89 - Other specified abnormal findings of blood chemistry Status: Acute Assessment and Plan: Very mildly elevated troponin, secondary to CHF, kidney disease, and physiologic stress. No indication of ACS. (5) Acute respiratory failure with hypoxia and hypercapnia: Code(s): J96.01 - Acute respiratory failure with hypoxia; J96.02 - Acute respiratory failure with hypercapnia Status: Acute Assessment and Plan: Remains intubated. 50% FiO2 at this time. Diuresing as above. COVID negative. Management per collar sewer. Additional Plan Subjective Date/time seen: Date of service:12/06/19 10:59 Interval history: Follow-up for: multiple medical problems including obstructive sleep apnea, combined systolic and diastolic congestive heart failure, pulmonary hypertension, paroxysmal atrial fibrillation, hypertension, morbid obesity and peripheral vascular that presented to the hospital for shortness of breath and chest pain. She has been intubated since 11/26/2019. Date of service: 12/06/2019: She remains intubated Sedated. Blood pressure soft, tolerating diuresis thus far 2.8 L overnight. Potassium low this morning 2.9. Review of Systems Review of Systems: ROS unobtainable: Yes unobtainable due to endotracheal tube and unobtainable due to mental status Constitutional: Constitutional: Reports chills (No f
[2019-12-06] MEDS: POTASSIUM CHLORIDE 20 MEQ PACKET (FOR LIQUID) 40 MEQ FEED TUBE (11:29)
[2019-12-06 12:27] LABS: Glucose Point of Care 93 (65-105)
--- NOTE | 2019-12-06 16:09 | PM.IMPN ---
Progress Note: A&P Assessment and Plan (1) Shock: Code(s): R57.9 - Shock, unspecified Status: Acute Assessment and Plan: Etiology not entirely clear but would consider septic shock with possible source to include left foot wound, pneumonia, or even COVID-19. Covid is negative, bc and uc are negative pt is on iv vanc and imipenem cultures appear nl (2) Acute respiratory failure with hypoxia and hypercapnia: Code(s): J96.01 - Acute respiratory failure with hypoxia; J96.02 - Acute respiratory failure with hypercapnia Status: Acute Assessment and Plan: Multifactorial in etiology to include sleep apnea. Congestive heart failure and possible underlying pneumonia. Intubated failed BIPAP theraphy 12/06/19 16:09 63-year-old female with history of diabetes diabetic, deep ulceration,wound status post right BKA presented emergency department with shortness of presumably exacerbation of CHF is seen cardiac echo was not able to determine etiology due to morbid obesity, patient is being diuresed, on vent, patient had elevated LFT seen by GI suspect most likely secondary to morbid obesity and fatty liver,_ patient had a transthoracic cardiac echo due to body habitus was not very well visualized, today patient had AMANDA which showed patient mild dilatation of left ventricular with mild to moderate LV dysfunction with ejection fraction of 45%, moderate pulmonary hypertension, otherwise cardiac echo was normal, patient still remains intubated being diuresed._ seen by pulmonology cardiology and photographic aide, patient urine output is reasonable, patient is hypokalemic and being supplemented (3) Elevated troponin: Code(s): R79.89 - Other specified abnormal findings of blood chemistry Status: Acute Assessment and Plan: Secondary to CHF (4) Acute on chronic combined systolic (congestive) and diastolic (congestive) heart failure: Code(s): I50.43 - Acute on chronic combined systolic (congestive) and diastolic (congestive) heart failure Status: Acute Assessment and Plan: coming off levophed now on iv lasix bid (5) Paroxysmal atrial fibrillation: Code(s): I48.0 - Paroxysmal atrial fibrillation Status: Acute Assessment and Plan: Rate controlled atrial fibrillation on telemetry She is on apixaban for stroke prophylaxis. and ASA (6) Renal failure: Code(s): N19 - Unspecified kidney failure Status: Acute Assessment and Plan: Creat is NL now King catheter to monitor strict I/O. (7) Hypertension: Code(s): I10 - Essential (primary) hypertension Status: Acute Assessment and Plan: Lisinopril and metoprolol are currently on hold.weaning off levophed (8) Ulcer of left medial lower extremity with fat layer exposed: Code(s): L97.822 - Non-pressure chronic ulcer of other part of left lower leg with fat layer exposed Status: Acute Assessment and Plan: Wound cultures will be obtained. wound care on board (9) Obstructive sleep apnea on CPAP: Code(s): G47.33 - Obstructive sleep apnea (adult) (pediatric); Z99.89 - Dependence on other enabling machines and devices Status: Acute Assessment and Plan: Currently on the ventilator. Subjective Date/time seen: 12/06/19 16:09 63-year-old female with history of diabetes diabetic, deep ulceration,wound status post right BKA presented emergency department with shortness of presumably exacerbation of CHF is seen card
[2019-12-06 16:26] LABS: Potassium 3.4 mmol/L (3.4-5.0)
[2019-12-06] MEDS: POTASSIUM CHLORIDE 20 MEQ PACKET (FOR LIQUID) 40 MEQ PO (17:24)
--- NOTE | 2019-12-06 17:24 | PC.NURSE ---
Spoke with Dr. Nguyen and advised Bigeminy rhythm, and stat K & Mag results. Order received for additionaal Potassium 40 mEq PO. Will continue to monitor closely.
[2019-12-06 18:37] LABS: Glucose Point of Care 117 (65-105)
--- NOTE | 2019-12-06 22:33 | PM.PNPUL ---
Progress Note: A&P Assessment and Plan (1) Obstructive sleep apnea on CPAP: Code(s): G47.33 - Obstructive sleep apnea (adult) (pediatric); Z99.89 - Dependence on other enabling machines and devices Status: Acute (2) Acute on chronic combined systolic (congestive) and diastolic (congestive) heart failure: Code(s): I50.43 - Acute on chronic combined systolic (congestive) and diastolic (congestive) heart failure Status: Acute (3) Acute respiratory failure with hypoxia and hypercapnia: Code(s): J96.01 - Acute respiratory failure with hypoxia; J96.02 - Acute respiratory failure with hypercapnia Status: Acute Assessment and Plan: sputum, urine and blood cultures sent. - continue careful diuresis - PEEP of 8-10 is adequate - will need extubation to BIPAP with back up rate of 16 - daily sedation holidays and weaning trials - consider adding diamox 500 mg IV Q12h for a few days in conjunction with lasix Time Spent With Patient Time with patient: 15 - 25 minutes Subjective Date/time seen: 12/06/19 22:33 Interval history: Stable overnight, intubated and sedated with versed and fentanyl drip. slight negative balance,CXR still showing bilateral interstitial opacities and pleural effusions consistent with CHF but atypical pneumonia cannot be ruled out. Serum bicarb still > 40 Review of Systems Review of Systems: All systems reviewed & are unremarkable except as noted in HPI and below Exam Narrative: Exam Narrative: intubated Const: General: comfortable and no acute distress HENMT: Other: ETT in place Eyes: Sclera: sclerae normal Pupils: Equal, round and reactive pupils present Neck: Neck: supple and no JVD Resp: Effort & Inspection: normal respiratory effort Auscultation: rales and diminished lung sounds Cardio: Rate: regular rate Rhythm: abnormal rhythm irregularly irregular GI: Inspection: non-distended Auscultation: normal bowel sounds Other: Morbidly obese : Other: King catheter in place Urinary Catheter: Urinary Catheter: patent and draining and urine clear Skin: Other: Dry skin changes and dressing left lower extremity Neuro: Cranial nerves: Yes Equal, round and reactive pupils present Other: Patient sedated intubated, does not open eyes or follow simple commands Extrem: Other: Right BKA, left foot dressing in place, Psych: Other: Unable to assess at this time Objective Data Vital Signs Vital Signs: Vital Signs - 24 hr 12/05/19 23:23 12/06/19 00:00 12/06/19 01:28 Temperature 37.8 C H Pulse Rate 81 72 64 Respiratory Rate 22 H 22 H Blood Pressure 119/80 Pulse Oximetry 94 93 12/06/19 01:29 12/06/19 01:38 12/06/19 02:00 Temperature 37.7 C H Pulse Rate 64 75 75 Respiratory Rate 22 H 22 H Blood Pressure 97/57 L Pulse Oximetry 94 93 12/06/19 04:00 12/06/19 05:25 12/06/19 06:00 Temperature 37.7 C H 37.6 C H Pulse Rate 80 75 82 Respiratory Rate 22 H 22 H Blood Pressure 116/78 100/78 Pulse Oximetry 92 94 93 12/06/19 08:00 12/06/19 08:56 12/06/19 10:00 Temperature 37.3 C 37.2 C Pulse Rate 76 76 66 Respiratory Rate 22 H 22 H Blood Pressure 94/66 L 92/66 L Pulse Oximetry 93 93 95 12/06/19 10:55 12/06/19 11:29 12/06/19 11:30 Temperature Pulse Rate 64 68 68 Respiratory Rate 22 H 22 H Blood Pressure Pulse Oximetry 94 12/06/19 12:00 12/06/19 12:32 12/06/19 12:33 Temperature 37.5 C Pulse Rate 79 88 87 Respiratory Rate 22 H 22 H 22 H Blood Pressure 105/71 Pulse Oximetry 93 12/06/19 12:34 12/06/19 13:00 12/06/19 13:53 Temperature Pulse Rate 88 83 71 Respiratory Rate 22 H 22 H Blood Pressure Pulse Oximetry 12/06/19 14:00 12/06/19 14:17 12/06/19 15:28 Temperature 37.7 C H 37.8 C H Pulse Rate 75 68 Respiratory Rate 22 H Blood Pressure 98/75 L Pulse Oximetry 94 93 12/06/19 15:29 12/06/19 15:31 12/06/19 16:00 Temperature 37.8 C H Pulse Rate 78 86 83
[2019-12-07] VITALS (36 sets, daily range): BP systolic 88–136; BP diastolic 63–84; PULSE 68–95; RESP 22; TEMP 36.7–38.1; O2SAT 91–98
[2019-12-07 01:17] LABS: Glucose Point of Care 120 (65-105)
[2019-12-07 04:12] LABS: Base Excess ABG 14.2 mEq/l (+/-2.0); Carboxyhemoglobin 0.4 % THb (0-2.0); Fractional Inspired Oxygen 50 %; Methemoglobin ABG 0.2 %THb (0-1.5); Oxygen Content ABG 16.7 %vol (16.0-22.0); Oxygen Saturation ABG 93.1 % (95.0-100.0); Oxyhemoglobin 90.6 % THb (90.0-100.0); PO2 ABG 60.4 mmHg (80.0-100.0); PO2 FiO2 Ratio Arterial Blood 1.21 %; Reduced Hemoglobin 8.8 %THb (0-5.0); Total Hemoglobin 13.1 g/dL (12.0-18.0)
[2019-12-07 04:14] LABS: Arterial Blood Gas Ventilator rate 22 /MIN; Device VENTILATOR; Modified Allen's Test Pass; Site Drawn RIGHT RADIAL; pH ABG 7.519 (7.350-7.450)
[2019-12-07 04:15] LABS: Arterial Blood Gas PEEP 10 cmH2O; Arterial Blood Gas Tidal Volume 450 ml; Arterial Blood Gas Vent Mode CMV
[2019-12-07] MEDS: ACETAMINOPHEN ELIXIR 325 MG/10.15 ML UDC 650 MG PO ×2 (04:45→14:11)
[2019-12-07] MEDS: CENTRAL LINE FLUSH 10 ML IV PUSH ×3 (06:00→21:32)
[2019-12-07 06:39] LABS: Hemoglobin 11.8 g/dL (12.0-15.0); Mean Corpuscular HGB Conc 30.3 g/dl (32-36); Mean Corpuscular Hemoglobin 27.8 pg (26-34); Mean Platelet Volume 10.9 fl (7.4-10.4); Platelet Count Result 224 k/mm3 (150-375); Red Blood Count 4.24 M/mm3 (4.2-5.4); Red Cell Distribution Width 16.1 % (11.5-14.5); White Blood Count 7.2 K/mm3 (4.5-10.0)
[2019-12-07 07:04] LABS: Alanine Aminotransferase 20 U/L (4-35); Albumin Level 3.3 g/dL (3.5-5.1); Alkaline Phosphatase 81 U/L (38-126); Anion Gap 9.99999 mmol/L (7-16); Aspartate Amino Transferase 36 U/L (14-36); Bilirubin,Total 1.6 mg/dL (0.2-1.3); Blood Urea Nitrogen 30 mg/dL (7-17); Calcium 8.7 mg/dL (8.4-10.2); Carbon Dioxide > 40 mmol/L (22-30); Chloride 93 mmol/L (98-107); Estimated CRCL calculation 116 ml/min; Estimated Glomerular Filt Rate > 60; Glucose 123 mg/dL (65-105); Magnesium 2.1 mg/dL (1.6-2.3); Phosphorus 4.5 mg/dL (2.5-4.5); Sodium 140 mmol/L (137-145)
--- NOTE | 2019-12-07 07:35 | WPDINTPN ---
Progress Note: A&P Assessment and Plan (1) Acute respiratory failure with hypoxia and hypercapnia: Code(s): J96.01 - Acute respiratory failure with hypoxia; J96.02 - Acute respiratory failure with hypercapnia Status: Acute Assessment and Plan: Acute hypoxemic respiratory failure secondary to CHF, COPD, obesity hypoventilation syndrome, probable JAIMIE, possible pneumonia. Continue full mechanical ventilation support to prevent hypoxemia/hypercarbia and end organ damage. Continue bronchodilators, empiric imipenem, and diuresis. Add Diamox and reduce Vt due to metabolic and relative respiratory alkalosis. COVID-19 ruled out. SARS-CoV-2 PCR was negative. I spoke to the patient's aunt about possible need ofr tracheostomy; she will speak to her daughter and get back to us. (2) Shock: Code(s): R57.9 - Shock, unspecified Status: Acute Assessment and Plan: RESOLVED. Patient off vasopressors; likely related to sepsis. (3) Elevated troponin: Code(s): R79.89 - Other specified abnormal findings of blood chemistry Status: Acute Assessment and Plan: Small increase likely secondary to respiratory failure shock and acute kidney injury. Continue aspirin and Eliquis. Cardiology is following. (4) Acute on chronic combined systolic (congestive) and diastolic (congestive) heart failure: Code(s): I50.43 - Acute on chronic combined systolic (congestive) and diastolic (congestive) heart failure Status: Acute Assessment and Plan: EF 45%. Continue diuresis. (5) Paroxysmal atrial fibrillation: Code(s): I48.0 - Paroxysmal atrial fibrillation Status: Acute Assessment and Plan: Currently rate controlled without any intervention. Continue Eliquis. (6) Renal failure: Code(s): N19 - Unspecified kidney failure Status: Acute Assessment and Plan: Resolved. (7) Ulcer of left medial lower extremity with fat layer exposed: Code(s): L97.822 - Non-pressure chronic ulcer of other part of left lower leg with fat layer exposed Status: Acute Assessment and Plan: Empiric Primaxin. Wound care is following the patient. (8) DVT prophylaxis: Code(s): Z29.9 - Encounter for prophylactic measures, unspecified Status: Acute Assessment and Plan: DVT prophylaxis -Eliquis Stress ulcer prophylaxis -Pepcid Nutrition -continue tube feeds and sliding scale insulin (9) Hypokalemia: Code(s): E87.6 - Hypokalemia Status: Acute Assessment and Plan: Related to diuresis. Replace and recheck. (10) Morbid obesity: Code(s): E66.01 - Morbid (severe) obesity due to excess calories Status: Acute Assessment and Plan: Pt will need counseling about dietary modification when able. Additional Plan Code Status - Full Code Total Critical Care Time - 40 minutes Due to a high probability of clinically significant, life threatening deterioration, the patient required my highest level of preparedness to intervene emergently and I personally spent this critical care time directly and personally managing the patient. This critical care time included obtaining a history; examining the patient; pulse oximetry; ordering and review of studies; arranging urgent treatment with development of a management plan; evaluation of patient's response to treatment; frequent reassessment; and discussions with other providers. It was exclusive of separately billable procedures and treating other patients and teaching time. Please see Assessment and Plan section and the rest of the note for further information on patient assessment and treatment Subjective Date/time seen: 12/07/19 07:35 Interval history: Reason for consult: Shock Acute hypoxic and hypercarbic respiratory failure, pulmonary edema, acute kidney injury, negative COVID-19, morbid obesity 12/05/2019: Patient remains intubated on CMV mode of ventilation, peep of 10, 50% FiO2
[2019-12-07] MEDS: FUROSEMIDE INJ 100 MG/10 ML VIAL 80 MG IV PUSH ×2 (09:26→21:31)
[2019-12-07] MEDS: SILVERGEL (ELTA) 45 ML 1 APPLIC TOPICAL (09:26)
[2019-12-07] MEDS: ASPIRIN 81 MG CHEWABLE TABLET PO (09:26)
[2019-12-07] MEDS: APIXABAN 5 MG TABLET PO ×2 (09:26→16:53)
[2019-12-07] MEDS: polyethylene glycoL 3350 17 GM POWD.PACK PO (09:26)
[2019-12-07] MEDS: TOLNAFTATE 1% POWDER 45 GM BTL 1 APPLIC TOPICAL ×2 (09:26→21:31)
[2019-12-07] MEDS: FAMOTIDINE 20 MG TABLET PO ×2 (09:27→21:31)
--- NOTE | 2019-12-07 10:33 | ECG_ITS ---
Measurements Intervals [place] Rate: 72 P: [place]: 0 QRS: 73 QRSD: 115 T: -78 QT: 387 QTc: 425 Interpretive Statements ATRIAL FIBRILLATION INTRAVENTRICULAR CONDUCTION DELAY ST-T WAVE ABNORMALITY IN ANTEROLAT/INF LEADS- CONSIDER ISCHEMIA ABNORMAL ECG Electronically Signed On 12-07-2019 14:02:19 CDT by Jorje Barber D.O.
[2019-12-07] MEDS: POTASSIUM CHLORIDE 20 MEQ PACKET (FOR LIQUID) 40 MEQ FEED TUBE (11:05)
[2019-12-07 13:03] LABS: Glucose Point of Care 103 (65-105)
[2019-12-07] MEDS: acetaZOLAMIDE SODIUM FOR INJ 500 MG VIAL IV PUSH (14:05)
[2019-12-07] MEDS: ALPRAZolam 0.25 MG TABLET FEED TUBE ×2 (14:11→16:53)
--- NOTE | 2019-12-07 14:47 | PM.PNCARD ---
Progress Note: A&P Assessment and Plan (1) Acute on chronic combined systolic (congestive) and diastolic (congestive) heart failure: Code(s): I50.43 - Acute on chronic combined systolic (congestive) and diastolic (congestive) heart failure Status: Acute Assessment and Plan: Acute on chronic systolic and diastolic heart failure. Continue diuresis as BP allows. Monitor electrolytes and replete Potassium more aggressively. Echocardiogram 06/18/2018 revealed that the left ventricle was not well visualized even with definity contrast. Mild concentric LVH. Mild enlargement of the LV cavity. Mild to moderate global LV systolic dysfunction. Best estimate of EF was by M-mode of 47 %. Mild enlargement of the right ventricle. Mild enlargement of the left and right atrium. Moderate pulmonary hypertension estimated in the RVSP at 65 mm Hg. Mild pulmonic regurgitation. Dilated inferior vena cava with poor inspiratory collapse consistent with elevated right atrial pressures. No significant change when compared to the echo of 2014. Echocardiogram 11/28/2019 was not helpful even with definity. The chambers were not well visualized. Echocardiogram was very difficult due to positioning, her body habitus as well as the ventilator. When discussed with Boris Cervantes [facility] even with extreme positioning on to her left side due to her body habitus still may not be able to get a good acoustic window. Limited information may be obtained from a transesophageal echocardiogram but will stop her tube feedings at midnight and assess further tomorrow. Lasix 80mg IV BID. Schedule KCl supplementation. she remains clinically volume overloaded, pulmonary vascular congestion on chest x-ray persists but is improving. Pt remains critically ill, prognosis guarded. (2) Persistent atrial fibrillation: Code(s): I48.19 - Other persistent atrial fibrillation Status: Acute Assessment and Plan: History of persistent atrial fibrillation, heart rate controlled at this time without medical therapy. Continue anticoagulation with Eliquis. Metoprolol on hold because of her hypotension. Restart her metoprolol and lisinopril when able (3) Hypokalemia: Code(s): E87.6 - Hypokalemia Status: Acute Assessment and Plan: Persistently hypokalemic. Schedule KCl supplementation at least 120MEQ daily, ideally per tube to limit unnecessary fluids once she is caught up. Question oral absorption, but no diarrhea. K+ loss very likely secondary to diuresis. Mg 2.1. (4) NSVT (nonsustained ventricular tachycardia): Code(s): I47.2 - Ventricular tachycardia Status: Acute Assessment and Plan: 7 beat NSVT, frequent PVC's, probable occ aberrant conduction/Ashmann's. Hypokalemia contributing and needs to be repleted. IF more frequent or longer runs of NSVT may consider Amiodarone, but would hold off for now and observe response with electrolyte replacement. (5) Acute respiratory failure with hypoxia and hypercapnia: Code(s): J96.01 - Acute respiratory failure with hypoxia; J96.02 - Acute respiratory failure with hypercapnia Status: Acute Assessment and Plan: Remains intubated. 50% FiO2 at this time. Diuresing as above. COVID negative. Management per electrician supervisor. (6) Elevated troponin: Code(s): R79.89 - Other specified abnormal findings of blood chemistry Status: Acute Assessment and Plan: Very mildly elevated troponin, secondary to CHF, kidney disease, and physiologic stress. No indication of ACS. (7) Shock: Code(s): R57.9 - Shock, unspecified Status: Acute Assessment and Plan: Shock, Probable septic shock requiring intubation, Levophed remains off. Management per electrician supervisor. A
[2019-12-07] MEDS: ALBUTEROL SULFATE NEB 2.5 MG/0.5 ML INH INHALATION ×2 (14:50→21:08)
--- NOTE | 2019-12-07 15:26 | PC.NURSE ---
Dr. Bernard & Dr. Nguyen both notified of 7 beat Vtach that occurred at 1526.
[2019-12-07] MEDS: AMIODARONE 150 MG/D5W 100 ML 150 MG/100 ML BAG 600 MG IV CONT (15:47)
[2019-12-07 16:33] LABS: Anion Gap 9.49999 mmol/L (7-16); Blood Urea Nitrogen 28 mg/dL (7-17); Calcium 8.6 mg/dL (8.4-10.2); Carbon Dioxide > 40 mmol/L (22-30); Chloride 93 mmol/L (98-107); Estimated CRCL calculation 104 ml/min; Estimated Glomerular Filt Rate > 60; Glucose 117 mg/dL (65-105); Potassium 3.5 mmol/L (3.4-5.0); Sodium 139 mmol/L (137-145)
[2019-12-07 17:02] LABS: Glucose Point of Care 119 (65-105)
[2019-12-07 17:46] LABS: Alveolar/Arterial O2 Gradient 182.3 mmHg; Base Excess ABG 12.6 mEq/l (+/-2.0); Carboxyhemoglobin 0.7 % THb (0-2.0); Fractional Inspired Oxygen 45 %; HCO3 ABG 39.4 mEq/l (22.0-26.0); Methemoglobin ABG 0.2 %THb (0-1.5); Oxygen Content ABG 17.3 %vol (16.0-22.0); Oxygen Saturation ABG 94.1 % (95.0-100.0); Oxyhemoglobin 92.2 % THb (90.0-100.0); PO2 FiO2 Ratio Arterial Blood 1.56 %; Reduced Hemoglobin 6.9 %THb (0-5.0); Total Hemoglobin 13.3 g/dL (12.0-18.0); pH ABG 7.433 (7.350-7.450)
[2019-12-07 17:48] LABS: Device VENTILATOR; Modified Allen's Test Pass; PCO2 ABG 60.3 mmHg (35.0-45.0); Site Drawn RIGHT RADIAL
[2019-12-07 17:49] LABS: Arterial Blood Gas PEEP 10 cmH2O; Arterial Blood Gas Tidal Volume 400 ml; Arterial Blood Gas Vent Mode ASSIST CONTROL; Arterial Blood Gas Ventilator rate 22 /MIN
--- NOTE | 2019-12-07 17:55 | PC.NURSE ---
Spoke with patient's father regarding code status. Family is requesting DNR code status at this time and will withdrawal care and make her comfort care in the am. [facility] home will make arrangements for patient per father.
--- NOTE | 2019-12-07 18:15 | PM.IMPN ---
Progress Note: A&P Assessment and Plan (1) Shock: Code(s): R57.9 - Shock, unspecified Status: Acute Assessment and Plan: Etiology not entirely clear but would consider septic shock with possible source to include left foot wound, pneumonia, or even COVID-19. Covid is negative, bc and uc are negative pt is on iv vanc and imipenem cultures appear nl (2) Acute respiratory failure with hypoxia and hypercapnia: Code(s): J96.01 - Acute respiratory failure with hypoxia; J96.02 - Acute respiratory failure with hypercapnia Status: Acute Assessment and Plan: Multifactorial in etiology to include sleep apnea. Congestive heart failure and possible underlying pneumonia. Intubated failed BIPAP theraphy 12/07/19 18:15 63-year-old female with history of diabetes diabetic, deep ulceration,wound status post right BKA presented emergency department with shortness of presumably exacerbation of CHF is seen cardiac echo was not able to determine etiology due to morbid obesity, patient is being diuresed, on vent, patient had elevated LFT seen by GI suspect most likely secondary to morbid obesity and fatty liver,_ patient had a transthoracic cardiac echo due to body habitus was not very well visualized, today patient had AMANDA which showed patient mild dilatation of left ventricular with mild to moderate LV dysfunction with ejection fraction of 45%, moderate pulmonary hypertension, otherwise cardiac echo was normal, patient still remains intubated being diuresed._ seen by pulmonology cardiology and taxation economist, patient urine output is reasonable, patient is hypokalemic and being supplemented, Today discussed with taxation economist patient will need trach and PEG and prognosis is poor, spoke with the POA, patient's father who was admitted in hospital, came to see the patient, he has decided to place the patient on DNR and will withdraw the care tomorrow (3) Elevated troponin: Code(s): R79.89 - Other specified abnormal findings of blood chemistry Status: Acute Assessment and Plan: Secondary to CHF (4) Acute on chronic combined systolic (congestive) and diastolic (congestive) heart failure: Code(s): I50.43 - Acute on chronic combined systolic (congestive) and diastolic (congestive) heart failure Status: Acute Assessment and Plan: coming off levophed now on iv lasix bid (5) Paroxysmal atrial fibrillation: Code(s): I48.0 - Paroxysmal atrial fibrillation Status: Acute Assessment and Plan: Rate controlled atrial fibrillation on telemetry She is on apixaban for stroke prophylaxis. and ASA (6) Renal failure: Code(s): N19 - Unspecified kidney failure Status: Acute Assessment and Plan: Creat is NL now King catheter to monitor strict I/O. (7) Hypertension: Code(s): I10 - Essential (primary) hypertension Status: Acute Assessment and Plan: Lisinopril and metoprolol are currently on hold.weaning off levophed (8) Ulcer of left medial lower extremity with fat layer exposed: Code(s): L97.822 - Non-pressure chronic ulcer of other part of left lower leg with fat layer exposed Status: Acute Assessment and Plan: Wound cultures will be obtained. wound care on board (9) Obstructive sleep apnea on CPAP: Code(s): G47.33 - Obstructive sleep apnea (adult) (pediatric); Z99.89 - Dependence on other enabling machines and devices Status: Acute Assessment and Plan: Currently on the ventilator.
--- NOTE | 2019-12-07 20:07 | PC.NURSE ---
Pt noted to have several runs of Vtach, beginning at 1526 - 5 runs of Vtach ranging from 9 - [address] Nguyen called to advise and order obtained for Amiodarone 150 mg ivpb bolus. Patient tolerated bolus well. Dr. Nguyen and Dr. Bernard notified. Pt experienced 2, 4 beat runs of Vtach and an beat run of Vtach at approximately 1740. Dr. Bernard advised. Will continue to monitor closely.
[2019-12-07] MEDS: AMIODARONE 360 MG/D5W 200 ML 360 MG/200 ML BAG 33.3 MG IV CONT (21:27)
[2019-12-07] MEDS: QUEtiapine FUMARATE 25 MG TABLET 50 MG FEED TUBE (21:32)
[2019-12-07 22:07] LABS: Potassium 3.5 mmol/L (3.4-5.0)
[2019-12-08] VITALS (15 sets, daily range): BP systolic 89–136; BP diastolic 63–104; PULSE 70–144; RESP 22–30; TEMP 36.9–37.7; O2SAT 91–96
[2019-12-08 01:02] LABS: Glucose Point of Care 104 (65-105)
[2019-12-08] MEDS: ALBUTEROL SULFATE NEB 2.5 MG/0.5 ML INH INHALATION ×2 (01:35→09:12)
[2019-12-08] MEDS: AMIODARONE 360 MG/D5W 200 ML 360 MG/200 ML BAG 16.7 MG IV CONT (03:02)
[2019-12-08 04:36] LABS: HCO3 ABG 36.5 mEq/l (22.0-26.0); PCO2 ABG 49.5 mmHg (35.0-45.0); PO2 ABG 61.2 mmHg (80.0-100.0); pH ABG 7.485 (7.350-7.450)
[2019-12-08 04:37] LABS: Base Excess ABG 11.4 mEq/l (+/-2.0); Oxygen Saturation ABG 92.8 % (95.0-100.0); Total Hemoglobin 12.9 g/dL (12.0-18.0)
[2019-12-08 04:38] LABS: Alveolar/Arterial O2 Gradient 203.3 mmHg; Carboxyhemoglobin 0.5 % THb (0-2.0); Methemoglobin ABG 0.2 %THb (0-1.5); Oxygen Content ABG 16.4 %vol (16.0-22.0); Oxyhemoglobin 90.5 % THb (90.0-100.0)
[2019-12-08 04:39] LABS: PO2 FiO2 Ratio Arterial Blood 1.36 %; Reduced Hemoglobin 8.8 %THb (0-5.0)
[2019-12-08 04:40] LABS: Device VENTILATOR; Fractional Inspired Oxygen 45 %; Modified Allen's Test Pass; Site Drawn RIGHT RADIAL
[2019-12-08 04:54] LABS: Hematocrit 37.4 % (37.0-47.0); Hemoglobin 11.4 g/dL (12.0-15.0); Mean Corpuscular HGB Conc 30.5 g/dl (32-36); Mean Corpuscular Hemoglobin 28.1 pg (26-34); Mean Corpuscular Volume 92.3 fl (80-100); Mean Platelet Volume 10.5 fl (7.4-10.4); Platelet Count Result 209 k/mm3 (150-375); Red Blood Count 4.05 M/mm3 (4.2-5.4); White Blood Count 6.5 K/mm3 (4.5-10.0)
[2019-12-08 05:06] LABS: Alanine Aminotransferase 17 U/L (4-35); Albumin Level 3.2 g/dL (3.5-5.1); Alkaline Phosphatase 77 U/L (38-126); Anion Gap 9.4 mmol/L (7-16); Aspartate Amino Transferase 29 U/L (14-36); Bilirubin,Total 1.1 mg/dL (0.2-1.3); Blood Urea Nitrogen 33 mg/dL (7-17); Calcium 8.5 mg/dL (8.4-10.2); Carbon Dioxide 39 mmol/L (22-30); Chloride 94 mmol/L (98-107); Estimated CRCL calculation 94 ml/min; Estimated Glomerular Filt Rate 56; Glucose 114 mg/dL (65-105); Magnesium 2.3 mg/dL (1.6-2.3); Potassium 3.4 mmol/L (3.4-5.0); Sodium 139 mmol/L (137-145)
[2019-12-08] MEDS: CENTRAL LINE FLUSH 10 ML IV PUSH (06:27)
[2019-12-08 07:44] LABS: Arterial Blood Gas PEEP 10 cmH2O; Arterial Blood Gas Vent Mode CMV; Arterial Blood Gas Ventilator rate 22 /MIN
[2019-12-08 07:45] LABS: Arterial Blood Gas Tidal Volume 450 ml
[2019-12-08] MEDS: TOLNAFTATE 1% POWDER 45 GM BTL 1 APPLIC TOPICAL (08:16)
[2019-12-08] MEDS: FUROSEMIDE INJ 100 MG/10 ML VIAL 80 MG IV PUSH (08:16)
[2019-12-08] MEDS: ASPIRIN 81 MG CHEWABLE TABLET PO (08:16)
[2019-12-08] MEDS: polyethylene glycoL 3350 17 GM POWD.PACK PO (08:16)
[2019-12-08] MEDS: FAMOTIDINE 20 MG TABLET PO (08:16)
[2019-12-08] MEDS: APIXABAN 5 MG TABLET PO (08:16)
[2019-12-08] MEDS: SILVERGEL (ELTA) 45 ML 1 APPLIC TOPICAL (08:17)
[2019-12-08] MEDS: ALPRAZolam 0.25 MG TABLET FEED TUBE (08:20)
--- NOTE | 2019-12-08 10:59 | PCDIET ---
ICU Rounding Note: Patient has been tolerating Vital 1.2 at 60mL/hr goal rate with residuals 130mL and below. Noted plan for withdrawal of care today. Last recorded weight is 190.6kg which is down from last review. Bowel Motility: Still no documented BM. Labs and meds noted. Patient on daily Miralax Additional Notes: Will monitor plan of care. Recommend continuing tube feedings if plan of care changes and aggressive medical therapy is continued. Following daily in ICU rounds. Assessing/reassessing every Sunday/Sunday.
[2019-12-08] MEDS: MORPHINE SULFATE 10 MG/ML AMP 5 MG IV PUSH (11:49)
[2019-12-08] MEDS: MORPHINE SULFATE 2 MG/ML INJ IV PUSH ×3 (11:55→13:28)
--- NOTE | 2019-12-08 12:57 | PM.PNPUL ---
Progress Note: A&P Assessment and Plan (1) Acute respiratory failure with hypoxia and hypercapnia: Code(s): J96.01 - Acute respiratory failure with hypoxia; J96.02 - Acute respiratory failure with hypercapnia Status: Acute Assessment and Plan: She has been extubated at the request of her family as she has a poor prognosis, and has not improved while on the ventilator. (2) Obstructive sleep apnea on CPAP: Code(s): G47.33 - Obstructive sleep apnea (adult) (pediatric); Z99.89 - Dependence on other enabling machines and devices Status: Acute (3) Acute on chronic combined systolic (congestive) and diastolic (congestive) heart failure: Code(s): I50.43 - Acute on chronic combined systolic (congestive) and diastolic (congestive) heart failure Status: Acute Additional Plan Dr. Montana is her primary care doctor, and he has been managing her issues. She is getting morphone and Ativan every 30 min as needed for comfort. Agree with plans. Subjective Date/time seen: 12/08/19 12:57 Interval history: Stable overnight. She was excavated at 11:53 today, compassionate wean, respiratory rate high, cyanotic lips. SHe appears comfortable. Review of Systems Review of Systems: ROS unobtainable: Yes unobtainable due to medical condition Exam Const: General: comfortable and no acute distress HENMT: Other: breathing room air Eyes: General: appearance normal, both eyes and all related structures Sclera: sclerae normal Pupils: Equal, round and reactive pupils present Neck: Neck: supple and no JVD Lymphatic: lymphadenopathy not noted Resp: Effort & Inspection: abnormal respiratory pattern (shallow, rapid respiratory rate) Auscultation: rales and diminished lung sounds Cardio: Rate: tachycardic (rate 153) Rhythm: abnormal rhythm irregularly irregular (atrial fib) GI: Inspection: non-distended Auscultation: normal bowel sounds Other: Morbidly obese : Other: King catheter in place Urinary Catheter: Urinary Catheter: patent and draining and urine clear Skin: Lesions: lesion noted (Chronic stasis changes L lower extremity, yellow crusting, 3+ edema) Other: Dry skin changes and dressing left lower extremity Neuro: Cranial nerves: Yes Equal, round and reactive pupils present Speech: No normal speech (Sedated intubated) Other: does not open eyes or follow simple commands Extrem: Right lower extremity: lower leg (Right [id number] amputation) and ankle (dressing kerlix wrapped over left ankle ulcer ) Other: Right BKA, left foot dressing in place, Psych: Other: Unable to assess at this time Objective Data Vital Signs Vital Signs: Vital Signs - 24 hr 12/07/19 14:00 12/07/19 14:04 12/07/19 14:11 Temperature 37.3 C 37.8 C H Pulse Rate 84 Respiratory Rate 22 H 22 H Blood Pressure 94/68 L Pulse Oximetry 94 12/07/19 14:28 12/07/19 14:45 12/07/19 15:24 Temperature 36.8 C Pulse Rate 68 70 Respiratory Rate 22 H 22 H Blood Pressure Pulse Oximetry 94 12/07/19 15:47 12/07/19 16:00 12/07/19 16:12 Temperature 37.6 C H Pulse Rate 86 82 73 Respiratory Rate 22 H 22 H Blood Pressure 96/72 L 97/68 L Pulse Oximetry 93 12/07/19 17:50 12/07/19 18:00 12/07/19 18:11 Temperature 37.4 C Pulse Rate 83 81 89 Respiratory Rate 22 H 22 H Blood Pressure 96/63 L Pulse Oximetry 93 95 12/07/19 18:49 12/07/19 19:30 12/07/19 20:00 Temperature 37.5 C Pulse Rate 82 82 84 Respiratory Rate 22 H 22 H 22 H Blood Pressure 88/65 L Pulse Oximetry 96 12/07/19 21:03 12/07/19 21:04 12/07/19 21:08 Temperature Pulse Rate 77 77 75 Respiratory Rate 22 H 22 H 22 H Blood Pressure Pulse Oximetry 12/07/19 21:14 12/07/19 21:25 12/07/19 21:27 Temperature Pulse Rate 80 80 78 Respiratory Rate 22 H Blood Pressure 101/80 Pulse Oximetry 95 12/07/19 22:00 12/07/19 23:00 12/08/19 00:00 Temperature 37.4 C 37.5 C Pulse Rate 75 70 78 Respirato
[2019-12-08] MEDS: MORPHINE SULFATE 4 MG/ML INJ IV PUSH (13:47)
--- NOTE | 2019-12-08 14:39 | WPDINTPN ---
Progress Note: A&P Assessment and Plan (1) Acute respiratory failure with hypoxia and hypercapnia: Code(s): J96.01 - Acute respiratory failure with hypoxia; J96.02 - Acute respiratory failure with hypercapnia Status: Acute Assessment and Plan: Acute hypoxemic respiratory failure secondary to CHF, COPD, obesity hypoventilation syndrome, probable JAIMIE, possible pneumonia. Continue full mechanical ventilation support to prevent hypoxemia/hypercarbia and end organ damage. Continue bronchodilators, empiric imipenem, and diuresis. Add Diamox and reduce Vt due to metabolic and relative respiratory alkalosis. COVID-19 ruled out. SARS-CoV-2 PCR was negative. - patient's aunt who is the POA and patient's father decided to withdraw support today as this stated that she would not want to live like this and would not want a tracheostomy and a PEG tube placed (2) Shock: Code(s): R57.9 - Shock, unspecified Status: Acute Assessment and Plan: RESOLVED. Patient off vasopressors; likely related to sepsis. (3) Elevated troponin: Code(s): R79.89 - Other specified abnormal findings of blood chemistry Status: Acute Assessment and Plan: Small increase likely secondary to respiratory failure shock and acute kidney injury. Continue aspirin and Eliquis. Cardiology is following. (4) Acute on chronic combined systolic (congestive) and diastolic (congestive) heart failure: Code(s): I50.43 - Acute on chronic combined systolic (congestive) and diastolic (congestive) heart failure Status: Acute Assessment and Plan: EF 45%. hold diuresis as family is withdrawing support (5) Paroxysmal atrial fibrillation: Code(s): I48.0 - Paroxysmal atrial fibrillation Status: Acute Assessment and Plan: Currently rate controlled without any intervention. Continue Eliquis. (6) Renal failure: Code(s): N19 - Unspecified kidney failure Status: Acute Assessment and Plan: Resolved. (7) Ulcer of left medial lower extremity with fat layer exposed: Code(s): L97.822 - Non-pressure chronic ulcer of other part of left lower leg with fat layer exposed Status: Acute Assessment and Plan: Empiric Primaxin. Wound care is following the patient. (8) DVT prophylaxis: Code(s): Z29.9 - Encounter for prophylactic measures, unspecified Status: Acute Assessment and Plan: DVT prophylaxis -Eliquis Stress ulcer prophylaxis -Pepcid Nutrition -continue tube feeds and sliding scale insulin (9) Hypokalemia: Code(s): E87.6 - Hypokalemia Status: Acute Assessment and Plan: Related to diuresis. Replace and recheck. (10) Morbid obesity: Code(s): E66.01 - Morbid (severe) obesity due to excess calories Status: Acute Assessment and Plan: Pt will need counseling about dietary modification when able. Additional Plan discussed with patient's aunt father at bedside the process of withdrawal of support, I answered all questions. Code Status - Full Code Total Critical Care Time - 33 minutes Due to a high probability of clinically significant, life threatening deterioration, the patient required my highest level of preparedness to intervene emergently and I personally spent this critical care time directly and personally managing the patient. This critical care time included obtaining a history; examining the patient; pulse oximetry; ordering and review of studies; arranging urgent treatment with development of a management plan; evaluation of patient's response to treatment; frequent reassessment; and discussions with other providers. It was exclusive of separately billable procedures and treating other patients and teaching time. Please see Assessment and Plan section and the rest of the note for further information on patient assessment and treatment Subjective Date/time seen: 12/08/19 14:39 Interval history: Reason for con
--- NOTE | 2019-12-08 15:16 | PC.NURSE ---
Patient given Morphine and Ativan IVP as ordered. Patient extubated and made comfort measures. Restraints released. Family at bedside.
--- NOTE | 2019-12-08 17:19 | P.DN_ITS ---
Discharge Sum: Prov Provider Primary care physician: Edgar Montana DO Admitting provider: Katie Cedillo MD Consults: 11/26/19 Consult to Physician Routine Comment: Consulting Provider: Sunil Lugo Reason for consultation: icu Has provider been notified: Yes Consult to Physician Routine Comment: Consulting Provider: Mariluz Moon Reason for consultation: chf Has provider been notified: Yes 11/26/19 16:04 Consult to Physician Routine Comment: Consulting Provider: Mariluz Moon Reason for consultation: chf Has provider been notified: Yes 11/27/19 Wound/ET Consult Routine Reason for Consult:: Left foot wound 11/29/19 10:11 Consult to Physician Routine Comment: called dr. bustillos with information Consulting Provider: Jaci Bustillos debt collector/MD group to consult: pulmonolgy Reason for consultation: acute on chronic resp failure, possible trilogy Has provider been notified: Yes 12/01/19 08:22 Consult to Physician Routine Comment: CALLED OFFICE WITH CONSULT Consulting Provider: Thuan Kendall debt collector/MD group to consult: GI Reason for consultation: elevated LFTs Has provider been notified: Yes 12/01/19 08:24 Consult to Physician Routine Comment: JESUS NICHOLAS IS AWARE OF THE PT. Consulting Provider: Ted Cruz debt collector/MD group to consult: cardiology Reason for consultation: CHF Has provider been notified: Yes Discharge Sum: Summary Date and Time Date of admission: 11/26/19 16:40 Date of : 12/08/19 Time of : 14:23 Summary Details: 63-year-old female with history of diabetes diabetic, deep ulceration,wound status post right BKA presented emergency department with shortness of presumably exacerbation of CHF is seen cardiac echo was not able to determine etiology due to morbid obesity, patient is being diuresed, on vent, patient had elevated LFT seen by GI suspect most likely secondary to morbid obesity and fatty liver,_ patient had a transthoracic cardiac echo due to body habitus was not very well visualized, today patient had AMANDA which showed patient mild dilatation of left ventricular with mild to moderate LV dysfunction with ejection fraction of 45%, moderate pulmonary hypertension, otherwise cardiac echo was normal, patient still remains intubated being diuresed._ seen by pulmonology cardiology and cartoonist special effects, patient urine output is reasonable, patient is hypokalemic and being supplemented, Today discussed with cartoonist special effects patient will need trach and PEG and prognosis is poor, spoke with the POA, patient's father who was admitted in hospital, came to see the patient, he has decided to place the patient on DNR and will withdraw the care. patient family decided to withdraw the care and patient was extubated and patient on December 07 at 14:23. Additional Data Confirmation of as documented by pronouncing clinician: no pulse, no respirations, no heart sounds and pupils fixed and dilated Family: at bedside Additional persons at bedside: aids social worker Attending/PCP notified?: Yes Attending physician: Katie Cedillo MD Was code activated?: No Autopsy requested?: No gas examiner notified?: Yes Organ bank notified?: Yes Advance directives: No Hospice patient?: No
== END 2019-12-08 14:25 | disposition expired | DRG 720 ==
LOC: ANHED 16:36 → ANHICU 17:56
PROVIDERS: Family Medicine; Internal Medicine; Internal Medicine Cardiovascular Disease; Internal Medicine Critical Care Medicine; Internal Medicine Gastroenterology; Physician Assistant; Admitting Provider Family Medicine; Emergency Provider Emergency Medicine; PCP Internal Medicine; Visit Provider Family Medicine
DX: A41.9 Sepsis, unspecified organism (principal); J96.01 Acute respiratory failure with hypoxia; R65.21 Severe sepsis with septic shock; I11.0 Hypertensive heart disease with heart failure; I50.43 Acute on chronic combined systolic (congestive) and diastolic (congestive) heart failure; Z68.44 Body mass index [BMI] 60.0-69.9, adult; I48.0 Paroxysmal atrial fibrillation; I87.8 Other specified disorders of veins; D64.9 Anemia, unspecified; E66.2 Morbid (severe) obesity with alveolar hypoventilation; J96.02 Acute respiratory failure with hypercapnia; N17.9 Acute kidney failure, unspecified; E87.6 Hypokalemia; L97.822 Non-pressure chronic ulcer of other part of left lower leg with fat layer exposed; I47.2 Ventricular tachycardia; Z20.828 Contact with and (suspected) exposure to other viral communicable diseases; E11.42 Type 2 diabetes mellitus with diabetic polyneuropathy; Z89.511 Acquired absence of right leg below knee; R79.89 Other specified abnormal findings of blood chemistry; Z79.01 Long term (current) use of anticoagulants
CPT/HCPCS: 31500; 36415; 36600; 71045; 73630; 76705; 80048; 80053; 80074; 80202; 82103; 82247; 82248; 82375; 82390; 82550; 82728; 82805; 83050; 83520; 83605; 83615; 83735; 83880; 84100; 84132; 84145; 84484; 85025; 85027; 85380; 85610; 85730; 86038; 86140; 86235; 87040; 87070; 87086; 87205; 87635; 93005; 93312; 93320; 93325; 93970; 94002; 94003; 94640; 96365; 96366; 99291; A9270; C1751; C8929; C9803; J0282; J0330; J0743; J1120; J1265; J1940; J1956; J2060; J2250; J2270; J3010; J3370; J3480; J7030; J7040; Q9957; U0003